=== PATIENT | female | born 1970 | race Caucasian/White ===

== ENCOUNTER 2023-10-24 12:51 | Outpatient (OUT) | payer OTHER, SELFPAY ==
--- NOTE | 2023-10-24 12:53 | US_ITS ---
The [address] [address] Patient Name: BARB RAMOS MRN: [id number] date: 1970 Sex: F Assigned Patient Location: [facility] Current Patient Location: [facility] Accession/Order Number: [id number] Exam Date: 10/24/2023 12:58 Report Date: 10/24/2023 15:02 At the request of: DARRON LATHAM Procedure: US pelvis w/ transvaginal EXAMINATION: US pelvis w/ transvaginal HISTORY: Post-menopausal bleeding N95.0 COMPARISON: No relevant comparison available. FINDINGS: Transabdominal and transvaginal images The uterus is normal in size, contour and echotexture measuring 8.3 x 5.2 x 4.0 cm. No focal myometrial mass. The uterus is anteverted. Endometrium measures 6.2 mm The right ovary is not visualized Left ovary measures 2.3 x 1.4 x 1.6 cm. Normal color Doppler flow US/US pelvis w/ transvaginal IMPRESSION: The endometrium measures 6.2 mm, this is mildly thickened for postmenopausal patient Electronically authenticated by: LEANDER LOPEZ Date: 10/24/2023 15:02
== END 2023-10-24 12:52 | disposition home or self-care (01) ==
LOC: NOMS 12:51
PROVIDERS: PCP Family Medicine; Visit Provider Obstetrics & Gynecology
DX: N95.0 Postmenopausal bleeding (principal)
CPT/HCPCS: 76830; 76856

== ENCOUNTER 2023-11-10 20:49 | Outpatient (REF) | payer OTHER, SELFPAY | END 2023-11-10 20:50 | disposition home or self-care (01) | LOC: LAB 20:49 | PROVIDERS: PCP Family Medicine; Visit Provider Obstetrics & Gynecology | DX: Z01.419 Encounter for gynecological examination (general) (routine) without abnormal findings (principal) | CPT/HCPCS: 87624; 88175 ==

== ENCOUNTER 2023-11-21 09:52 | Outpatient (OUT) | payer OTHER, SELFPAY ==
--- NOTE | 2023-11-21 09:59 | ECG_ITS ---
The [facility] Test Date: 2023-11-21 Pat Name: BARB RAMOS Department: Room: - Gender: Female [employer]: : [id number] Requested By: DARRON LATHAM Order Number: [id number] Reading MD: STEPHENIE MCELROY Measurements Intervals [place] Rate: 77 P: 69 OR: 161 QRS: 32 QRSD: 89 T: 37 QT: 382 QTc: 433 Interpretive Statements SINUS RHYTHM No previous ECG available for comparison Electronically Signed On 11-21-2023 23:08:01 EDT by STEPHENIE MCELROY
--- OUTSIDE RECORDS SUMMARY | 2023-11-21 10:06 | XMS_ITS | CCD ---
Author Organization [facility] Care Team Providers Care Counselor Dormitory Name Role Phone Jyoti Dempsey Primary Care Provider KAYLYN, DR SINGER Primary Care Unavailable PAY, DR DAVALOS Admitting Unavailable PAY, DR DAVALOS Attending Unavailable PAY, DR DAVALOS Consulting Unavailable ALVARADO, INDIO Consulting Unavailable HOUSE, DR SINGER Primary Care Unavailable KARASIK, DR JASMINE Admitting Unavailable KARASIK, DR JASMINE Attending Unavailable KARASIK, DR JASMINE Consulting Unavailable WEST, DR LEANDER Avila Consulting Unavailable Zieber, DR Pinto Consulting Unavailable KARASIK, DR JASMINE Admitting Unavailable KARASIK, DR JASMINE Attending Unavailable HOUSE, DR SINGER Primary Care Unavailable KARASIK, DR JASMINE Consulting Unavailable Jag Gross DO Primary Care Provider [phone] LI KAHN Attending Unavailable JR. MARIA E, YVETTE Jalloh Attending Unavaila WOO Bo Attending Unavailable ANABELLE, WOO Calderon Attending Unavailable ANABELLE, WOO Calderon Attending Unavailable DARRON LATHAM Attending Unavailable ANABELLE, WOO Calderon Attending Unavailable ANABELLE, WOO Calderon Attending Unavailable DARRON LATHAM Attending Unavailable Allergies Allergy Classification Reported Allergen(s) Allergy Type Date of Onset Reaction(s) Facility (1 source) Levamisole Drug Allergy 5 [facility] Repository (4 sources) Phenergan Plain Propensity to adverse reactions to drug 4 Abnormal Behavior [facility] Medications Current Medications Medication Drug Class(es) Dates Sig (Normalized) Sig (Original) ibuprofen 800 mg oral tablet (5 sources) Nonsteroidal Anti-inflammatory Drug Start: 4 End: 4 take 1 tablet by mouth every eight hours as needed for pain ibuprofen (MOTRIN) 800 mg tablet Indications: Bilateral carpal tunnel syndrome TAKE 1 TABLET BY MOUTH EVERY 8 HOURS NEEDED FOR PAIN 90 tablet 0 06/16/2023 Active levothyroxine sodium 0.1 mg oral tablet (4 sources) l-Thyroxine Start: 3 take 1 tablet by mouth once daily levothyroxine (SYNTHROID, LEVOTHROID) 100 MCG tablet Indications: Hypothyroidism, unspecified type TAKE 1 TABLET BY MOUTH EVERY DAY 90 tablet 1 01/14/2023 Active methylPREDNISolone 4 mg oral tablet (4 sources) Corticosteroid Start: 4 take 1 tablet by mouth in the morning methylPREDNISolone (MEDROL, VAHID,) 4 mg tablet Indications: Bilateral carpal tunnel syndrome Take 1 tablet (4 mg total) by mouth in the morning. follow package directions. 21 tablet 0 05/16/2023 Active venlafaxine 75 mg oral tablet (4 sources) Serotonin and Norepinephrine Reuptake Inhibitor Start: 3 take 1 tablet by mouth once daily venlafaxine (EFFEXOR) 75 mg tablet Indications: Major depressive disorder with single episode, in full remission (CMS-HCC) TAKE 1 TABLET BY MOUTH EVERY DAY 90 tablet 1 01/14/2023 Active Problems Active Problems Problem Classification Problem Date Documented Da te Episodic/Chronic Immunizations and screening for infectious disease (3 sources) Exposure to communicable disease; Translations: [Encounter for observation for suspected exposure to other biological agents ruled out] Onset: 02-12-2020 Episodic Mood disorders (4 sources) Depressive disorder; Translations: [Depression] Onset: 12-29-2022 12-29-2022 Chronic Other nervous system disorders (2 sources) Bilateral carpal tunnel syndrome; Translations: [Carpal tunnel syndrome, bilateral upper limbs] 05-16-2023 Chronic Other nutritional; endocrine; and metabolic disorders (1 source) Body mass index 25-29 - overweight; Translations: [Overweight] 05-16-2023 Episodic Other screening for suspected conditions (not mental disorders or infectious disease) (9 sources) Encounter for screening mammogram for malignant neoplasm of breast; Translations: [Encounter for screening for malignant neoplasm of cervix] Onset: 12-16-2021 Episodic Residual codes; unclassified (1 source) Asymptomatic menopausal state; Translations: [ASYMPTOMATIC MENOPAUSAL STATE] Onset: 01-15-2022 Episodic Substance-related disorders (5 sources) Nicotine dependence, cigarettes, uncomplicated; Translations: [Cigarette smoker ] Onset: 09-02-2021 12-29-2022 Chronic Thyroid disorders (4 sources) Hypothyroidism; Translations: [Hypothyroidism, unspecified] Onset: 12-29-2022 12-29-2022 Chronic Past or Other Problems Problem Classification Problem Date Documented Da te Episodic/Chronic E Codes: Natural/environment (1 source) Bitten by cat, initial encounter; Translations: [BITTEN BY CAT INITIAL ENCOUNTER] Onset: 09-02-2021 Episodic Mood disorders (4 sources) Mood disorders Onset: 05-16-2023 05-16-2023 Open wounds of extremities (1 source) Open bite of right hand, initial encounter; Translations: [OPEN BITE RIGHT HAND INITIAL ENC] Onset: 09-02-2021 Episodic Other aftercare (1 source) Other salvage determiner (current) drug therapy; Translations: [OTH RESIDENTIAL CURRENT DRUG THERAPY] Onset: 09-02-2021 Episodic Other connective tissue disease (4 sources) Pain in right hand; Translations: [PAIN IN RIGHT HAND] Onset: 08-30-2021 Episodic Other nutritional; endocrine; and metabolic disorders (4 sources) Overweight; Translations: [Overweight] Onset: 12-29-2022 12-29-2022 Episodic Skin and subcutaneous tissue infections (1 source) Cellulitis of right upper limb; Translations: [CELLULITIS OF RIGHT UPPER LIMB] Onset: 09-02-2021 Episodic Results Test Name Value Interpretation Reference Range Facil ity MG MAMM SCREEN 3D LEVAR CADon 01-08-2022 MG MAMM SCREEN 3D LEVAR CAD Patient: MAGY FARIAS Exam Date: 01/08/2022 : 1970 Gender:F Ordering : DR KENROY STEVENSON . Admission #: [id number] Family : Order #: [id number] CLICK HERE TO VIEW EXAM RADIOLOGY REPORT PROCEDURE: MAMMOGRAM SCREENING 3D BILATERAL CAD COMPARISON: MG MAMM SCREEN 3D LEVAR CAD, 12/16/2020. INDICATIONS: Screening mammography Calculator Name NCI Breast Cancer Risk Assessment Tool 5 Year Breast Cancer Risk 0.70% Lifetime Breast Cancer Risk 6.50% Personal Breast Cancer No Personal Ovarian Cancer No Treatments None Family Cancers None LOCATION: [facility] BREAST COMPOSITION: Extremely dense, which lowers the sensitivity of mammography. FINDINGS: DIAGNOSTIC CATEGORY 2--BENIGN FINDING. NO CHANGE FROM COMPARISON. Scattered benign-appearing nodules are present. Scattered benign-appearing calcifications are present. Scattered benign-appearing lymph nodes are present. RIGHT BREAST: No significant suspicious finding. LEFT BREAST: No significant suspicious finding. RECOMMENDATIONS: ROUTINE MAMMOGRAM AND CLINICAL EVALUATION IN 12 MONTHS. PLEASE NOTE: A NORMAL MAMMOGRAM DOES NOT EXCLUDE THE POSSIBILITY OF BREAST CANCER. A CLINICALLY SUSPICIOUS PALPABLE LUMP SHOULD BE BIOPSIED. Dictated by: Leander Olmedo MD on 01/08/2022 at 10:27 Approved by: Leander Olmedo MD on 01/08/2022 at 10:28 Normal [facility] XR DEXA BONE DENSITYon 01-08 XR DEXA BONE DENSITY EXAMINATION: XR DEXA BONE DENSITY, 01/08/2022 8:59 AM EDT HISTORY: Menopause present COMPARISON: None. TECHNIQUE: Dual-energy X-ray absorptiometry (DEXA) bone density study performed for the axial skeleton. FINDINGS: SPINE ANALYSIS: Average bone mineral density is 1.373 g/cm2. T-score (standard deviation relative to young adult mean): 1.4 . HIP ANALYSIS: Lowest bone mineral density is within the left femoral trochanter, 0.901 g/cm2. T-score (standard deviation relative to young adult mean): 0.4 . IMPRESSION: World [employer] Organization Classification: Normal - Low Fracture Risk Electronically authenticated by: SHAINA WINKLER Date: 2022-01-08 10:20 Normal [facility] PAP ACOG PANEL 2: 30 to 65on 12-22-2021 . . Normal [facility] Comment on above: Result Comment: Perf ormed at: WB Performed By: #### [id number] #### [facility] [address] [place] [address] Dr. Kyleigh Mittal Age Gdln ACOG Testing 30-65 Normal [facility] Comment on above: Performed By: #### [id number] #### [facility] [address] [address] [address] Kyleigh Mittal DIAGNOSIS: Comment Normal [facility] Comment on above: Result Comment: NEGA TIVE FOR INTRAEPITHELIAL LESION OR MALIGNANCY. Performed at: WB Performed By: #### [id number] #### [facility] [address] [address] [address] Kyleigh Mittal HPV Aptima Positive Abnormal Negative [facility] Comment on above: Result Comment: This nucleic acid amplification test detects fourteen high-risk HPV types (16,18,31,33,35,39,45,51,52,56,58,59,66,68) without differentiation. Performed at: =G Performed By: #### [id number] #### [facility] [address] [address] [address] Kyleigh Mittal HPV Genotype 16 Negative Normal Negative [facility] Comment on above: Result Comment: Perf ormed at: =G Performed By: #### [id number] #### [facility] [address] [address] [address] Kyleigh Mittal HPV Genotype 18,45 Negative Normal Negative [facility] Comment on above: Result Comment: Perf ormed at: =G Performed By: #### [id number] #### [facility] [address] [place] [address] Dr. Kyleigh Mittal Methodology: Comment Normal [facility] Comment on above: Result Comment: This liquid based ThinPrep(R) pap test was screened with the use of an image guided system. Performed at: WB Performed By: #### [id number] #### [facility] [address] [place] [address] Dr. Kyleigh Mittal Note: Comment Normal [facility] Comment on above: Result Comment: The Pap smear is a screening test designed to aid in the detection of premalignant and malignant conditions of the uterine cervix. It is not a diagnostic procedure and should not be used as the sole means of detecting cervical cancer. Both false-positive and false-negative reports do occur. . Performed at: WB Performed By: #### [id number] #### [facility] [address] [address] [address] Kyleigh Mittal Performed by: Comment Normal [facility] Comment on above: Result Comment: Sharon Jalloh, Parts Sales Associate (ASCP) Performed at: WB Performed By: #### [id number] #### [facility] [address] [address] [address] Kyleigh Mittal Specimen adequacy: Comment Normal [facility] Comment on above: Result Comment: Sati sfactory for evaluation. Endocervical and/or squamous metaplastic cells (endocervical component) are present. Performed at: WB Performed By: #### [id number] #### [facility] [address] [place] [address] Dr. Kyleigh Mittal CBC AUTO DIFFon 08-31-2021 BASO # 0.1 103/ul Normal 0.0-0.1 [facility] Comment on above: Performed By: #### C BC #### [facility] [address] [place] [address] Dr. Kyleigh Mittal Basophils/100 WBC (Bld) 0.9 % Normal 0.2-2.0 [facility] Comment on above: Performed By: #### C BC #### [facility] [address] [place] [address] Dr. Kyleigh Mittal EO # 0.2 103/ul Normal 0.0-0.7 [facility] Comment on above: Performed By: #### C BC #### [facility] [address] [place] [address] Dr. Kyleigh Mittal Eosinophils/100 WBC (Bld) 2.6 % Normal 0.9-7.0 [facility] Comment on above: Performed By: #### C BC #### [facility] [address] [place] [address] Dr. Kyleigh Mittal Erythrocyte distribution width (RBC) [Ratio] 13.9 % Normal 11.0-15.0 [facility] Comment on above: Performed By: #### C BC #### [facility] [address] [place] [address] Dr. Kyleigh Mittal Hematocrit (Bld) [Volume fraction] 38.1 % Normal 36.0-48.0 [facility] Comment on above: Performed By: #### C BC #### [facility] [address] [place] [address] Dr. Kyleigh Mittal Hemoglobin (Bld) [Mass/Vol] 11.7 g/dL Critically low 12.0-16.0 [facility] Comment on above: Performed By: #### C BC #### [facility] [address] [place] [address] Dr. Kyleigh Mittal IG # 0.02 10e3/ul Normal 0.00-0.03 [facility] Comment on above: Performed By: #### C BC #### [facility] [address] [place] [address] Dr. Kyleigh Mittal IG % 0.3 % Normal 0.0-0.5 [facility] Comment on above: Performed By: #### C BC #### [facility] [address] [place] [address] Dr. Kyleigh Mittal LYMPH # 2.4 103/ul Normal 1.2-3.8 [facility] Comment on above: Performed By: #### C BC #### [facility] [address] [place] [address] Dr. Kyleigh Mittal Lymphocytes/100 WBC (Bld) 29.6 % Normal 20.5-60.0 [facility] Comment on above: Performed By: #### C BC #### [facility] [address] [place] [address] Dr. Kyleigh Mittal MANUAL DIFF REQ NO [facility] Comment on above: Performed By: #### C BC #### [facility] [address] [place] [address] Dr. Kyleigh Mittal MCH (RBC) [Entitic mass] 25.5 pg Critically low 26.7-34.0 [facility] Comment on above: Performed By: #### C BC #### [facility] [address] [place] [address] Dr. Kyleigh Mittal MCHC (RBC) [Mass/Vol] 30.7 g/dL Normal 29.9-35.2 [facility] Comment on above: Performed By: #### C BC #### [facility] [address] [place] [address] Dr. Kyleigh Mitatl MCV (RBC) [Entitic vol] 83.2 fL Normal 81.0-99.0 [facility] Comment on above: Performed By: #### C BC #### [facility] [address] [place] [address] Dr. Kyleigh Mittal MONO # 0.8 103/ul Normal 0.3-0.8 [facility] Comment on above: Performed By: #### C BC #### [facility] [address] [place] [address] Dr. Kyleigh Mittal Monocytes/100 WBC (Bld) 9.7 % Normal 1.7-12.0 [facility] Comment on above: Performed By: #### C BC #### [facility] [address] [place] [address] Dr. Kyleigh Mittal NEUT # 4.5 103/ul Normal 1.4-6.5 [facility] Comment on above: Performed By: #### C BC #### [facility] [address] [place] [address] Dr. Kyleigh Mittal Neutrophils/100 WBC (Bld) 56.9 % Normal 43.0-75.0 [facility] Comment on above: Performed By: #### C BC #### [facility] [address] [place] [address] Dr. Kyleigh iMttal Platelet mean volume (Bld) [Entitic vol] 9.7 fL Normal 9.5-13.5 [facility] Comment on above: Performed By: #### C BC #### [facility] [address] [place] [address] Dr. Kyleigh Mittal PLT 306 103/ul Normal 150-450 [facility] Comment on above: Performed By: #### C BC #### [facility] [address] [place] [address] Dr. Kyleigh Mittal RBC 4.58 106/ul Normal 4.20-5.40 [facility] Comment on above: Performed By: #### C BC #### [facility] [address] [place] [address] Dr. Kyleigh Mittal WBC 8.0 103/ul Normal 4.0-11.0 [facility] Comment on above: Performed By: #### C BC #### [facility] [address] [place] [address] Dr. Kyleigh Mittal CULTURE BLOODon 08-31-2021 Microscopic examination of blood, culture Culture Observations: NO GROWTH AT 5 DAYS. Isolate 1 BC_BA_NA Normal [facility] Comment on above: Performed By: #### B [id number] #### [facility] [address] [address] [address] Kyleigh Mittal Microscopic examination of blood, culture Culture Observations: NO GROWTH AT 5 DAYS. Isolate 1 BC_BA_NA Normal [facility] Comment on above: Performed By: #### B [id number] #### [facility] [address] [id number] Kyleigh Mittal XR HAND RT MIN 3Von 09-01-19 22 XR HAND RT MIN 3V EXAM: XR HAND RT MIN 3V HISTORY: Pain COMPARISON: None. TECHNIQUE: 3 views of the right hand were obtained. FINDINGS: 2 metallic BBs overlie the ulnar aspect of the right hand. No acute fracture or dislocation is seen. There is no soft tissue air. The joint spaces are preserved. No additional radiopaque foreign body is seen. There is soft tissue edema about the right hand. IMPRESSION: 1. No acute osseous abnormality or soft tissue air is seen about the right hand. 2. Soft tissue edema about the right hand which could represent cellulitis. Electronically authenticated by: Cosmo ALVARADO Date: 2021-08-31 00:59 Normal [facility] Vital Signs Date Time Vital Sign Value Performing Clinician Kyra salas 05-16-2023 11:01-0500 Body height 162.6 cm [employer] [facility] 05-16-2023 11:01-0500 Body mass index (BMI) [Ratio] 25.39 kg/m2 [employer] DO [facility] 05-16-2023 11:01-0500 Body temperature 97.5 [degF] [employer] DO [facility] 05-16-2023 11:01-0500 Body weight 67.09 kg [employer] DO [facility] 05-16-2023 11:01-0500 Diastolic blood pressure 70 mm[Hg] [employer]a DO Work Phone: [facility] [employer] [facility] 05-16-2023 11:01-0500 Heart rate 102 /min Jag Gross DO [facility] Phone[facility] 05-16-2023 11:01-0500 SaO2% (BldA) [Mass fraction] 98 % Jag Gross DO Work Phone[facility] 05-16-2023 11:01-0500 Systolic blood pressure 130 mm[Hg] Jag Gross DO Work Phone: [facility] Encounters Encounter Date Encounter Type Care Provider Facility Start: 11-10-2023 End: 11-10-2023 ambulatory DARRON GARRIDOO Not Available Start: 11-09-2023 End: 11-09-2023 ambulatory WOO AHN Not Available Start: 10-28-2023 End: 10-28-2023 ambulatory WOO AHN Not Available Start: 10-13-2023 End: 10-13-2023 ambulatory DARRON GARRIDOO Not Available Start: 10-04-2023 End: 10-04-2023 ambulatory WOO AHN Not Available Start: 09-27-2023 End: 09-27-2023 ambulatory WOO AHN Not Available Start: 09-09-2023 End: 09-09-2023 ambulatory WOO AHN Not Available Start: 09-07-2023 End: 09-07-2023 ambulatory YVETTE NIETOANIC Not Available Start: 08-10-2023 End: 08-10-2023 ambulatory LI KAHN Not Available Start: 06-13-2023 Refill Jag soni DO Work Phone: [facility] Comment on above: Bilateral carpal asha stacie syndrome Start: 05-20-2023 Orders Only Jag soni DO Work Phone: [facility] Start: 05-19-2023 Telephone encounter Li Jalloh MA [facility] Start: 05-16-2023 End: 05-16-2023 Office outpatient visit 15 minutes Jag Gross DO Work Phone: [facility] Comment on above: Bilateral carpal asha stacie syndrome (Primary Dx); Overweight (BMI 25.0-29.9); Encounter for screening mammogram for malignant neoplasm of breast Start: 01-08-2022 End: 01-09-[address] LUCRECIA PATIÑO Facility:[facility] Start: 12-16-2021 End: 12-16-[address] KENROY STEVENSON Facility:[facility] Start: 08-30-2021 End: 08-31-[address] LUCRECIA PATIÑO Facility:[facility] Start: 02-12-2020 End: 02-12-2020 Telemedicine consultation with patient Jyoti Dempsey Work Phone: [facility] Work Phone: Procedures Date Procedure Procedure Detail Performing Clinician Start: 05-16-2023 Adult depression scr eening assessment Jag Gross [employer] Work Phone: Start: 01-08-2022 Mammography Jag gill DO Work Phone: Plan of Treatment Date Care Activity Detail Author Start: 01-08-2026 Screening for malign ant neoplasm of colon Colon Cancer Screening 3 Year [facility] Start: 06-28-2024 Tobacco Counseling Tobacco Counselin g [facility] Start: 05-16-2024 Adult BMI Screening Adult BMI Screen ing [facility] Start: 05-16-2024 Depression Screening Depression Scre ening [facility] Start: 05-16-2024 Tobacco Screening Tobacco Screening [facility] Start: 04-04-2024 Administration of varicella zoster vaccine Zoster (Shingles) Vaccine (1 of 2) [facility] Comment on above: Postponed from 12/09 (Patient Refused) Start: 07-03-2023 Influenza vaccination Influenza Vacc ine [facility] Comment on above: Postponed from 12/03 (Patient Refused) Start: 05-16-2023 End: 05-16-2024 DBT Breast - bilateral screening Mammography screening bilateral with CAD Imaging Routine Encounter for screening mammogram for malignant neoplasm of breast Expected: 05/16/2023, Expires: 05/16/2024 [facility] Work Phone: Comment on above: Expected: 05/16/2023 , Expires: 05/16/2024 Start: 01-08-2023 Screening for malign ant neoplasm of breast [facility] Start: 02-19-2020 SARS-CoV-2, [facility] Work Phone: Start: 02-12-2020 COVID Drive up Testing [facility] Work Phone: Start: 12-09-1992 Screening for malign ant neoplasm of cervix [facility] Start: 12-09-1990 DTaP,Tdap and Td Vac cines (1 - Tdap) DTaP,Tdap and Td Vaccines (1 - Tdap) [facility] Start: 12-09-1989 Adult BMI Follow Up Plan Adult BMI Follow Up Plan [facility] [employer] Payers Date Payer Category Payer Unknown [facility] [facility] [id number] 2022-Present [phone] [address] [address] [place] [address] [id number] 1970 Unknown [id number] 1970 Unknown [id number] 1970 Unknown [id number] [id number] 1971 Unknown [id number] [id number] 1971 Unknown [id number] [id number] 1971 Unknown [id number] [id number] 1971 Unknown [id number] [id number] 1971 Unknown [id number] [id number] 1971 Unknown [id number] 2.16.840.1.136785.3.579.2.9 1971 Unknown [id number] [id number] 1971 Unknown [id number] [id number] 1970 Unknown [id number] [id number] 1959 Unknown [id number] 1958 Unknown [id number] Self-pay [id number] .5.4 Social History Date Type Detail Facility Tobacco smoking status Unknown if ever [facility] Work Phone: Start: 04-04-2014 [facility] Start: 04-04-2014 History of tobacco use Cigarette Smo ker [facility] Start: 12-29-2022 End: 05-16-2023 Cigarettes smoked current (pack per day) - Reported 0.5 [facility] Start: 12-29-2022 Tobacco use and exposure Smokeless tobacco non-user [facility] Start: 05-16-2023 Alcohol intake Current drinke r of alcohol (finding) [facility] Start: 12-29-2022 End: 05-16-2023 [facility] [employer] [facility] Has the [employer], or [employer] threatened to shut off services in your home in past 12Mo No [facility] Are you now , , , , never or living with a partner? [facility] How often to you hav e a drink containing alcohol? 2-4 times a month [facility] How many standard drinks containing alcohol do you have on a typical day? 3 or 4 [facility] How often do you hav e 6 or more drinks on 1 occasion? Never [facility] How hard is it for y ou to pay for the very basics like food, housing, medical care, and heating Not hard at all [facility] Do you feel stress - tense, restless, nervous, or anxious, or unable to sleep at night because your mind is troubled all the time - these days [OSQ] To some extent [facility] Start: 12-29-2022 Alcohol Comment social [facility] Start: 1970 Sex Assigned At Not on file [facility] Clinical Notes 05-16-2023 to 05-19-2023 Telephone Encounter - Li Perea CMA - 05/19/2023 3:49 PM ESTTelephone Encounter - Jag Gross DO - 05/19/2023 3:49 PM ESTTelephone Encounter - Li Perea CMA - 05/19/2023 3:49 PM EST Note Date & Type Note Facility 05-19-2023 Miscellaneous Notes Patient called and stated that she still has numbness and tingling in her hands and wanted to know can you take her off till Tuesday? Her employer is working 12 hours so she could not due this with numb and tingling hands. ok Patient states it starts tomorrow Okay. I printed out a note for her Patient picked up note documented in this encounter [facility] 05-19-2023 Telephone encounter Note Patient called and stated that she still has numbness and tingling in her hands and wanted to know can you take her off till Tuesday? Her employer is working 12 hours so she could not due this with numb and tingling hands. [facility] [employer] [facility] 05-19-2023 Telephone encounter Note Patient states it starts tomorrow [facility] 05-19-2023 Telephone encounter Note Okay. I printed out a note for her [facility] 05-19-2023 Telephone encounter Note Patient picked up note [facility] 05-16-2023 History of Present illness Narrative Subjective Patient ID: Magy Farias is a 52 y.o. female. ID presents today for a new problem. She is right handed. 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 She has been there about 4 years now. This problem started 2 weeks ago. It comes and goes but has chronic achiness and swelling. There is no weakness. She wakes up at night and her hands are numb and she has to shake them to get feeling back in them. Her mother gave her wrist braces and Voltaren gel which seems to have helped a bit. Numbness Associated symptoms include numbness. Pertinent negatives include no headaches, neck pain or weakness. The following portions of the patient's history were reviewed and updated as appropriate: allergies, current medications, past family history, past medical history, past social history, past surgical history, problem list, and medication reconciliation was completed including current medication and post discharge medication. Review of Systems Constitutional: Negative. Musculoskeletal: Negative for gait problem and neck pain. Neurological: Positive for numbness. Negative for dizziness, tremors, seizures, syncope, facial asymmetry, speech difficulty, weakness, light-headedness and headaches. Objective Physical Exam Constitutional: Appearance: She is overweight. Eyes: General: No scleral icterus. Extraocular Movements: Extraocular movements intact. Conjunctiva/sclera: Conjunctivae normal. Cardiovascular: Pulses: Normal pulses. Pulmonary: Effort: Pulmonary effort is normal. Skin: General: Skin is warm and dry. Neurological: General: No focal deficit present. Mental Status: She is alert and oriented to person, place, and time. Cranial Nerves: Cranial nerves 2-12 are intact. Sensory: Sensation is intact. Motor: Motor function is intact. Gait: Gait is intact. Deep Tendon Reflexes: Reflex Scores: Tricep reflexes are 2+ on the right side and 2+ on the left side. Bicep reflexes are 2+ on the right side and 2+ on the left side. Brachioradialis reflexes are 2+ on the right side and 2+ on the left side. Comments: +Tinel's test on left + Phalen's test B/L Psychiatric: Attention and Perception: Attention normal. Mood and Affect: Mood and affect normal. Speech: Speech normal. Behavior: Behavior normal. Behavior is cooperative. Thought Content: Thought content normal. Cognition and Memory: Cognition normal. Judgment: Judgment normal. Assessment/Plan Magy was seen today for numbness. Diagnoses and all orders for this visit: Bilateral carpal tunnel syndrome - methylPREDNISolone (MEDROL, VAHID,) 4 mg tablet; Take 1 tablet (4 mg total) by mouth in the morning. follow package directions. - ibuprofen (MOTRIN) 800 mg tablet; Take 1 tablet (800 mg total) by mouth every 8 (eight) hours as needed for pain. Clinically appears to be carpal tunnel syndrome. We will treat with a Medrol Dosepak followed by ibuprofen 800 every 8 hours as needed for pain. Try to reduce repetitive hand movements. She has the wrist cock-up splints at home and was encouraged to continue. If she can wear them at her job then she should or at least wear them at night then. Discussed cortisone injections and surgery. Likely related to repetitive hand use at work but also can be due to hypothyroidism and possibly smoking. Her last thyroid check was normal. Can recheck it early if she continues to have problems. Overweight (BMI 25.0-29.9) She is overweight. She would benefit from weight loss. Encounter for screening mammogram for malignant neoplasm of breast - Mammography screening bilateral with CAD; Future We discussed her mammogram. Recommended to have it done. She agreed. She would pursue further evaluation and treatment if it is abnormal. Order sent and she will call and set up her own appointment. documented in this encounter [facility] Diagnosis Bilateral carpal tunnel syndrome- Primary Carpal tunnel syndrome Overweight (BMI 25.0-29.9) Overweight Encounter for screening mammogram for malignant neoplasm of breast documented in this encounter [facility] [employer] [facility] Diagnosis Bilateral carpal tunnel syndrome Carpal tunnel syndrome documented in this encounter [facility] [employer] [facility]ructionsNot on filedocumented in this encounter [facility] [employer] ProfessionalsInstructionsNot on filedocumented in this encounter [facility] [employer] Reason for Referral No Reason for Referral Recorded Assessments Findings Encounter Date Exposure to a viral disease Telemedicine Establisted Patient with Jyoti Dempsey [employer] 02/12/2020 Exposure to biological agent suspected Telemedicine Establisted Patient with Jyoti Dempsey [employer] 02/12/2020 Instructions Instructions not supported for this document type No Instructions Recorded History of Present Illness History of Present Illness not supported for this document type No History of Present Illness Recorded Family History Includes: Family History in patient's chart No Family History RecordedNo Family History Records FoundNo Family History Records Found Review of System Review of Systems not supported for this document type No Review of Systems Recorded Physical Exam Physical Exam not supported for this document type No Physical Exam Recorded Advance Directives Includes: Current Advance Directives No Advance Directives RecordedNo Advanced Directives Records FoundNo Advanced Directives Records Found Summary Purpose Additional Source Comments Medical History (unrecognize d section and content) Includes: Medical History in patient's chartNo Medical History Recorded Evaluations & Outcomes (unre cognized section and content) Includes: Evaluations & Outcomes for active GoalsNo Outcomes Recorded INFORMATION SOURCE (unrecogn ized section and content) DATE CREATED AUTHOR 01/26/2022 [facility] DATE CREATED AUTHOR AUTHOR'S ORGANIZ ATION 11/12/2023 [facility] Reason for Visit (unrecogniz ed section and content) Reason Comments Numbness In the hand painful Reason Comments Med Refill Care Teams (unrecognized sec tion and content) Counselor Dormitory Relationship Specialty Start Date End Date GinnyYongJag KristiDO [address] [place] [address] PCP - General Family Medicine 12/29/22 Counselor Dormitory Relationship Specialty Start Date End Date KassidyjairoYongJag KristiDO [address], [place] [address] PCP - General Family Medicine 12/29/22 Counselor Dormitory Relationship Specialty Start Date End Date Kassidyjairo Jag KristiDO [address], [place] [address] PCP - General Family Medicine 12/29/22 FOR RECORDS PERTAINING TO PATIENTS WHO ARE OR HAVE BEEN ENROLLED IN A CHEMICAL DEPENDENCY/SUBSTANCEABUSE PROGRAM, SOME INFORMATION MAY BE OMITTED. This clinical summary was aggregated from multiple sources. Caution should be exercised in using it in the provision of clinical care. This summary normalizes information from multiple sources, and as a consequence, information in this document may materially change the coding, format and clinical context of patient data. In addition, data may be omitted in some cases. CLINICAL DECISIONS SHOULD BE BASED ON THE PRIMARY CLINICAL RECORDS. [employer] [facility]. provides no warranty or guarantee of the accuracy or completeness of information in this document.
--- NOTE | 2023-11-21 10:28 | XR_ITS ---
The [address] [address] Patient Name: BARB RAMOS MRN: [id number] date: 1970 Sex: F Assigned Patient Location: [facility] Current Patient Location: Accession/Order Number: [id number] Exam Date: 11/21/2023 10:30 Report Date: 11/22/2023 07:11 At the request of: DARRON LATHAM Procedure: XR chest 2V PROCEDURE: XR chest 2V DATE: 11/21/2023 9:30 AM CDT COMPARISONS: None. CLINICAL INDICATION: 52 years Female Preop exam FINDINGS: The cardiomediastinal silhouette and pulmonary vasculature are within normal limits. The lungs are clear. There is no evidence of pleural effusion or pneumothorax. XR/XR chest 2V IMPRESSION: Chest radiograph is within normal limits. Electronically authenticated by: SHAHNAZ MEDINA Date: 11/22/2023 07:11
== END 2023-11-21 09:53 | disposition home or self-care (01) ==
PROVIDERS: PCP Family Medicine; Visit Provider Obstetrics & Gynecology
DX: Z01.810 Encounter for preprocedural cardiovascular examination (principal); R93.89 Abnormal findings on diagnostic imaging of other specified body structures
CPT/HCPCS: 71046; 93005

== ENCOUNTER 2023-12-02 07:46 | Day surgery (SDC) | payer OTHER, SELFPAY ==
[2023-11-21 10:23] VITALS: BP 133/87; PULSE 89; TEMP 36.3; O2SAT 98; BMI 25.9
[2023-12-02] VITALS (11 sets, daily range): BP systolic 123–147; BP diastolic 72–95; PULSE 66–99; TEMP 35.9–36.4; O2SAT 95–99; BMI 25.2
--- OUTSIDE RECORDS SUMMARY | 2023-12-02 07:50 | XMS_ITS | CCD ---
Author Organization [facility] Care Team Providers Care General Internal Medicine Physician Name Role Phone Jyoti Dempsey Primary Care [...] Unavailable Jag Gross DO Primary Care Provider [phone] LI KAHN Attending Unavailable JR. MARIA E, YVETTE Jalloh Attending Unavaila WOO Bo Attending Unavailable ANABELLE, WOO Calderon Attending Unavailable ANABELLE, WOO Calderon Attending Unavailable DARRON LATHAM Attending Unavailable WOO AHN Attending Unavailable ANABELLE, WOO Calderon Attending Unavailable DARRON LATHAM Attending Unavailable WOO AHN Attending Unavailable Allergies Allergy Classification Reported Allergen(s) Allergy Type Date of Onset Reaction(s) Facility (1 source) Levamisole Drug Allergy 5 [facility] Repository (4 sources) Phenergan Plain Propensity [...] 09-02-2021 Episodic Other aftercare (1 source) 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 Admission #: [id number] Family : Order #: [id number] CLICK HERE TO VIEW EXAM RADIOLOGY REPORT PROCEDURE: MAMMOGRAM SCREENING 3D BILATERAL CAD COMPARISON: MG MAMM SCREEN 3D LEVAR CAD, 12/16/2020. INDICATIONS: Screening mammography Calculator Name NCI Breast Cancer Risk Assessment Tool 5 Year Breast Cancer Risk 0.70% Lifetime Breast Cancer Risk 6.50% Personal Breast Cancer No Personal Ovarian Cancer No Treatments None Family Cancers None LOCATION: [facility] BREAST COMPOSITION: Extremely dense, which lowers [...] Olmedo MD on 01/08/2022 at 10:28 Normal [facility] XR DEXA BONE DENSITYon 01-08 XR [...] by: SHAINA WINKLER Date: 2022-01-08 10:20 Normal [facility] PAP ACOG PANEL 2: 30 to 65on 12-22-2021 . . Normal [facility] Comment on above: Result Comment: Perf ormed at: WB Performed By: #### [id number] #### [facility] [address] [address] [address] Kyleigh Mittal Age Gdln ACOG Testing 30-65 Normal [facility] Comment on above: Performed By: #### [id number] #### [facility] [address] [place], [place] [address] Dr. Kyleigh Mittal DIAGNOSIS: Comment Normal [facility] Comment on above: Result Comment: NEGA TIVE FOR INTRAEPITHELIAL LESION OR MALIGNANCY. Performed at: WB Performed By: #### [id number] #### [facility] [address] [address] [address] Kyleigh Mittal HPV Aptima Positive Abnormal Negative [facility] Comment on above: Result Comment: This nucleic acid amplification test detects fourteen high-risk HPV types (16,18,31,33,35,39,45,51,52,56,58,59,66,68) without differentiation. Performed at: =G Performed By: #### [id number] #### [facility] [address] [address] [address] Kyleigh Mittal HPV Genotype 16 Negative Normal Negative [facility] Comment on above: Result Comment: Perf ormed at: =G Performed By: #### [id number] #### [facility] [address] [address] [address] Kyleigh Mittal HPV Genotype 18,45 Negative Normal Negative [facility] Comment on above: Result Comment: Perf ormed at: =G Performed By: #### [id number] #### [facility] [address] [place] [address] Dr. Kyleigh Mittal Methodology: Comment Normal [facility] Comment on above: Result Comment: This liquid based ThinPrep(R) pap test was screened with the use of an image guided system. Performed at: WB Performed By: #### [id number] #### [facility] [address] [place] [address] Dr. Kyleigh Mittal Note: Comment Normal [facility] Comment on above: Result Comment: The Pap smear is a screening test designed to aid in the detection of premalignant and malignant conditions of the uterine cervix. It is not a diagnostic procedure and should not be used as the sole means of detecting cervical cancer. Both false-positive and false-negative reports do occur. . Performed at: WB Performed By: #### [id number] #### [facility] [address] [place] [address] Dr. Kyleigh Mittal Performed by: Comment Normal [facility] Comment on above: Result Comment: Sharon Jalloh, Welding Machine Operator Submerged Arc (ASCP) Performed at: WB Performed By: #### [id number] #### [facility] [address] [place] [address] Dr. Kyleigh Mittal Specimen adequacy: Comment Normal [facility] Comment on above: Result Comment: Sati sfactory for evaluation. Endocervical and/or squamous metaplastic cells (endocervical component) are present. Performed at: WB Performed By: #### [id number] #### [facility] [address] [place] [address] Dr. Kyleigh Mittal CBC AUTO DIFFon 08-31-2021 BASO # 0.1 103/ul Normal 0.0-0.1 [facility] Comment on above: Performed By: #### C BC #### [facility] [address] [place] [address] Dr. Kyleigh Mittal Basophils/100 WBC (Bld) 0.9 % Normal 0.2-2.0 [facility] Comment on above: Performed By: #### C BC #### [facility] [address] [place] [address] Dr. Kyleigh Mittal EO # 0.2 103/ul Normal 0.0-0.7 [facility] Comment on above: Performed By: #### C BC #### [facility] [address] [place] [address] Dr. Kyleigh Mittal Eosinophils/100 WBC (Bld) 2.6 % Normal 0.9-7.0 [facility] Comment on above: Performed By: #### C BC #### [facility] [address] [place] [address] Dr. Kyleigh Mittal Erythrocyte distribution width (RBC) [Ratio] 13.9 % Normal 11.0-15.0 [facility] Comment on above: Performed By: #### C BC #### [facility] [address] [place] [address] Dr. Kyleigh Mittal Hematocrit (Bld) [Volume fraction] 38.1 % Normal 36.0-48.0 [facility] Comment on above: Performed By: #### C BC #### [facility] [address] [place] [address] Dr. Kyleigh Mittal Hemoglobin (Bld) [Mass/Vol] 11.7 g/dL Critically low 12.0-16.0 [facility] Comment on above: Performed By: #### C BC #### [facility] [address] [place] [address] Dr. Kyleigh Mittal IG # 0.02 10e3/ul Normal 0.00-0.03 [facility] Comment on above: Performed By: #### C BC #### [facility] [address] [place] [address] Dr. Kyleigh Mittal IG % 0.3 % Normal 0.0-0.5 [facility] Comment on above: Performed By: #### C BC #### [facility] [address] [place] [address] Dr. Kyleigh Mittal LYMPH # 2.4 103/ul Normal 1.2-3.8 [facility] Comment on above: Performed By: #### C BC #### [facility] [address] [place] [address] Dr. Kyleigh Mittal Lymphocytes/100 WBC (Bld) 29.6 % Normal 20.5-60.0 [facility] Comment on above: Performed By: #### C BC #### [facility] [address] [place] [address] Dr. Kyleigh Mittal MANUAL DIFF REQ NO Normal [facility] Comment on above: Performed By: #### C BC #### [facility] [address] [place] [address] Dr. Kyleigh Mittal MCH (RBC) [Entitic mass] 25.5 pg Critically low 26.7-34.0 [facility] Comment on above: Performed By: #### C BC #### [facility] [address] [place] [address] Dr. Kyleigh Mittal MCHC (RBC) [Mass/Vol] 30.7 g/dL Normal 29.9-35.2 [facility] Comment on above: Performed By: #### C BC #### [facility] [address] [place] [address] Dr. Kyleigh Mittal MCV (RBC) [Entitic vol] 83.2 fL Normal 81.0-99.0 [facility] Comment on above: Performed By: #### C BC #### [facility] [address] [place] [address] Dr. Kyleigh Mittal MONO # 0.8 103/ul Normal 0.3-0.8 [facility] Comment on above: Performed By: #### C BC #### [facility] [address] [place] [address] Dr. Kyleigh Mittal Monocytes/100 WBC (Bld) 9.7 % Normal 1.7-12.0 [facility] Comment on above: Performed By: #### C BC #### [facility] [address] [place] [address] Dr. Kyleigh Mittal NEUT # 4.5 103/ul Normal 1.4-6.5 [facility] Comment on above: Performed By: #### C BC #### [facility] [address] [place] [address] Dr. Kyleigh Mittal Neutrophils/100 WBC (Bld) 56.9 % Normal 43.0-75.0 [facility] Comment on above: Performed By: #### C BC #### [facility] [address] [place] [address] Dr. Kyleigh Mittal Platelet mean volume (Bld) [Entitic vol] 9.7 fL Normal 9.5-13.5 [facility] Comment on above: Performed By: #### C BC #### [facility] [address] [place] [address] Dr. Kyleigh Mittal PLT 306 103/ul Normal 150-450 [facility] Comment on above: Performed By: #### C BC #### [facility] [address] [place] [address] Dr. Kyleigh Mittal RBC 4.58 106/ul Normal 4.20-5.40 [facility] Comment on above: Performed By: #### C BC #### [facility] [address] [place] [address] Dr. Kyleigh Mittal WBC 8.0 103/ul Normal 4.0-11.0 [facility] Comment on above: Performed By: #### C BC #### [facility] [address] [place] [address] Dr. Kyleigh Mittal CULTURE BLOODon 08-31-2021 Microscopic examination of blood, culture Culture Observations: NO GROWTH AT 5 DAYS. Isolate 1 BC_BA_NA Normal [facility] Comment on above: Performed By: #### B [id number] #### [facility] [address] [place] [address] Dr. Kyleigh Mittal Microscopic examination of blood, culture Culture Observations: NO GROWTH AT 5 DAYS. Isolate 1 BC_BA_NA Normal [facility] Comment on above: Performed By: #### B LDCX1 #### [facility] [address] [id number] [address] Kyleigh Mittal XR HAND RT MIN [...] Cosmo ALVARADO Date: 2021-08-31 00:59 Normal [facility] Vital Signs Date Time Vital Sign Value Performing Clinician Kyra salas 05-16-2023 11:01-0500 Body height 162.6 cm Kimengi Work Phone: [employer] 05-16-2023 11:01-0500 Body mass index (BMI) [Ratio] 25.39 kg/m2 FootballScout DO Work Phone: [employer] 05-16-2023 11:01050 Body temperature 97.5 [degF] FootballScout DO Work Phone: [facility] 05-16-2023 11:01-0500 Body weight 67.09 kg FootballScout DO Work Phone: [facility] 05-16-2023 11:01-0500 Diastolic blood pressure 70 mm[Hg] Kimengi Work Phone: [facility] 05-16-2023 11:01-0500 Heart rate 102 /min Jag Gross DO Work Phone: [facility] 05-16-2023 11:01-0500 SaO2% (BldA) [Mass fraction] 98 % Jag Gross DO Work Phone: [facility] 05-16-2023 11:01-0500 Systolic blood pressure 130 mm[Hg] Jag Gross DO Work Phone: [facility] Encounters Encounter Date Encounter Type Care Provider Facility Start: 11-21-2023 End: 11-21-2023 ambulatory WOO AHN Not Available Start: 11-10-2023 End: 11-10-2023 ambulatory DARRON GARRIDOO Not Available Start: 11-09-2023 End: 11-09-2023 ambulatory WOO AHN Not Available Start: 10-28-2023 End: 10-28-2023 ambulatory WOO AHN Not Available Start: 10-13-2023 End: 10-13-2023 ambulatory DARRON YEISON Not Available Start: 10-04-2023 End: 10-04-2023 ambulatory WOO AHN Not Available Start: 09-27-2023 End: 09-27-2023 ambulatory WOO AHN Not Available Start: 09-09-2023 End: 09-09-2023 ambulatory WOO AHN Not Available Start: 09-07-2023 End: 09-07-2023 ambulatory YVETTE NIETO Not Available Start: 08-10-2023 End: 08-10-2023 ambulatory [...] 15 minutes Jag Gross DO Work Phone: [facility] Comment [...] consultation with patient Jyoti Dempsey Work Phone: [facility] Work Phone: Procedures Date Procedure Procedure Detail Performing Clinician Start: 05-16-2023 Adult depression scr eening assessment Jag Gross DO Work Phone: Start: 01-08-2022 Mammography Jag gill DO Work Phone: Plan of Treatment Date Care Activity Detail Author Start: 01-08-2026 Screening for malign ant neoplasm of colon Colon Cancer Screening 3 Year Cologuard [facility] Start: 06-28-2024 Tobacco Counseling Tobacco Counselin g [facility] Start: 05-16-2024 Adult BMI Screening Adult BMI Screen ing [facility] Start: 05-16-2024 Depression Screening Depression Scre ening [facility] Start: 05-16-2024 Tobacco Screening Tobacco Screening [facility] Start: 04-04-2024 Administration of varicella zoster vaccine Zoster (Shingles) Vaccine (1 of 2) [facility] Comment on above: Postponed from 12/09 (Patient Refused) Start: 07-03-2023 Influenza vaccination Influenza Vacc ine [facility] Comment on above: Postponed from 12/03 (Patient Refused) Start: 05-16-2023 End: 05-16-2024 DBT Breast - bilateral screening Mammography screening bilateral with CAD Imaging Routine Encounter for screening mammogram for malignant neoplasm of breast Expected: 05/16/2023, Expires: 05/16/2024 [employer] Work Phone: Comment on above: Expected: 05/16/2023 , Expires: 05/16/2024 Start: 01-08-2023 Screening for malign ant neoplasm of breast Mammogram [facility] Start: 02-19-2020 SARS-CoV-2, ANALIA [facility] Work Phone: Start: 02-12-[address] Drive up Testing [facility] Work Phone: Start: 12-09-1992 Screening for malign ant neoplasm of cervix Pap Smear [facility] Start: 12-09-1990 DTaP,Tdap and Td Vac cines (1 - Tdap) DTaP,Tdap and Td Vaccines (1 - Tdap) [facility] Start: 12-09-1989 Adult BMI Follow Up Plan Adult BMI Follow Up Plan [facility] Payers Date Payer Category Payer Unknown [employer] [facility] [id number] 2022-Present [phone] [address] [address] [place] [address] [id number] 1971 Unknown [id number] [id number] 1971 Unknown [id number] [id number] 1971 Unknown [id number] [id number] 1971 Unknown [id number] 2.16.840.1.378096.3.579.2.1259 1971 Unknown [id number] 2.16.840.1.184492.3.579.2.1259 1971 Unknown [id number] 2.16.840.1.969759.3.579.2.9 1971 Unknown [id number] 2.16.840.1.397568.3.579.2.1258 1971 Unknown [id number] 2.16.840.1.162679.3.579.2.1258 1971 Unknown [id number] 2.16.840.1.873950.3.579.2.1258 1971 Unknown [id number] 2.16.840.1.456668.3.579.2.1258 1971 Unknown [id number] 2.16.840.1.646418.3.579.2.1258 1971 Unknown [id number] 2.16.840.1.504962.3.579.2.1258 1971 Unknown [id number] 2.16.840.1.164321.3.579.2.9 1959 Unknown [id number] 1959 Unknown [id number] Self-pay [id number] .5.4 Social History Date Type Detail Facility Tobacco smoking status Unknown if ever sm oked [facility] Work Phone: Start: 04-04-2014 [facility] Start: 04-04-2014 History of tobacco use Cigarette Smo ker [facility] Start: 12-29-2022 End: 05-16-2023 Cigarettes smoked current (pack per day) - Reported 0.5 [facility] Start: 12-29-2022 Tobacco use and exposure Smokeless tobacco non-user [facility] Start: 05-16-2023 Alcohol intake Current drinke r of alcohol (finding) [facility] Start: 12-29-2022 End: 05-16-2023 [facility] Utilities [facility] Has the Memol[employer], or [employer] threatened to shut off services in your home in past 12Mo No [facility] Are you now , , , , never or living with a partner? [facility] How often to you hav e a drink containing alcohol? 2-4 times a month [facility] How many standard drinks containing alcohol do you have on a typical day? 3 or 4 [facility] How often do you hav e 6 or more drinks on 1 occasion? Never [facility] How hard is it for y ou to pay for the very basics like food, housing, medical care, and heating Not hard at all [facility] Do you feel stress - tense, restless, nervous, or anxious, or unable to sleep at night because your mind is troubled all the time - these days [OSQ] To some extent [facility] Start: 12-29-2022 Alcohol Comment social [facility] Start: 1970 Sex Assigned At Not on file P [facility] Clinical Notes 05-16-2023 to 05-19-2023 Telephone Encounter [...] up note documented in this encounter [facility] 05-19-2023 Telephone encounter Note Patient called and stated that she still has numbness and tingling in her hands and wanted to know can you take her off till Tuesday? Her employer is working 12 hours so she could not due this with numb and tingling hands. [facility] 05-19-2023 Telephone encounter Note ok [facility] 05-19-2023 Telephone encounter Note Patient states it starts tomorrow [facility] 05-19-2023 Telephone encounter Note Okay. I printed out a note for her [facility] 05-19-2023 Telephone encounter Note Patient picked up note [facility] 05-16-2023 History of Present illness Narrative [...] her own appointment. documented in this encounter [facility] Evaluation note Diagnosis Bilateral carpal tunnel syndrome- Primary Carpal tunnel syndrome Overweight (BMI 25.0-29.9) Overweight Encounter for screening mammogram for malignant neoplasm of breast [facility] Diagnosis Bilateral carpal tunnel syndrome Carpal tunnel syndrome documented [facility] this encounter [facility]ructions[facility] on filedocumented in this encounter [facility] on filedocumented in this encounter [facility] Reason for Referral No Reason for Referral Recorded Assessments Findings Encounter Date Exposure to a viral disease Telemedicine Establisted Patient with Jyoti Dempsey [facility] 02/12/2020 Exposure to biological agent suspected Telemedicine Establisted Patient with Jyoti Dempsey [facility] 02/12/2020 Instructions Instructions not supported for this [...] pital DATE CREATED AUTHOR AUTHOR'S ORGANIZ ATION 11/22/2023 [facility] Reason for Visit (unrecogniz ed section and content) Reason Comments Numbness In the hand painful Reason Comments Med Refill Care Teams (unrecognized sec tion and content) General Internal Medicine Physician Relationship Specialty Start Date End Date Jag Gross DO [address] [place] [address] PCP - General Family Medicine 12/29/22 General Internal Medicine Physician Relationship Specialty Start Date End Date Jag Gross DO [address], [place] [address] PCP - General Family Medicine 12/29/22 General Internal Medicine Physician Relationship Specialty Start Date End Date Jag Gross DO [address], [place] [address] PCP - General Family Medicine 12/29/22 FOR [...] BE BASED ON THE PRIMARY CLINICAL RECORDS. [employer] [facility]. provides no warranty or guarantee of the accuracy or completeness of information in this document.
[2023-12-02 07:54] LABS: Basophils Absolute Auto 0.1 10^3/uL (0.0-0.1); Basophils Percent Auto 1.7 % (0.2-2.0); Eosinophils Absolute Auto 0.1 10^3/uL (0.0-0.7); Eosinophils Percent Auto 2.2 % (0.9-7.0); Hematocrit 35.4 % (36.0-48.0); Hemoglobin 11.1 g/dL (12.0-16.0); Immature Granulocytes Abs Auto 0.01 10^3/uL (0.00-0.03); Immature Granulocytes Pct Auto 0.2 % (0.0-0.5); Lymphocytes Percent Auto 36.8 % (20.5-60.0); Mean Corpuscular HGB Conc 31.4 g/dL (29.9-35.2); Mean Corpuscular Hemoglobin 24.8 pg (26.7-34.0); Mean Platelet Volume 9.2 fL (9.5-13.5); Monocytes Absolute Auto 0.4 10^3/uL (0.3-0.8); Monocytes Percent Auto 6.9 % (1.7-12.0); Neutrophils Absolute Auto 2.8 10^3/uL (1.4-6.5); Neutrophils Percent Auto 52.2 % (43.0-75.0); Platelet Count 328 10^3/uL (150-450); Red Blood Count 4.48 10^6/uL (4.20-5.40); Red Cell Distribution Width 13.8 % (11.0-15.0); White Blood Count 5.4 10^3/uL (4.0-11.0)
[2023-12-02 08:17] LABS: HCG Quantitative 4 mIU/mL
[2023-12-02] MEDS: LACTATED RINGER'S SOLUTION 1,000 ML 50 ML IV (08:19)
--- NOTE | 2023-12-02 09:40 | PM.ONB ---
Brief Operative Note Date of procedure: 12/02/23 Pre-op diagnosis general: menorrhagia, thickened endometrium Post-op diagnosis: same as pre-op Procedure: NAME OF PROCEDURE: [ D&c hysteroscopy with myosure] PROCEDURE: The patient was taken back to the Operating Room where she was prepped and draped in normal sterile fashion after being placed under general anesthesia without difficulty. She was also placed in the dorsal lithotomy position. A weighted speculum was placed in the patient?s vagina. The anterior lip of the cervix was identified and grasped with a single tooth tenaculum. The patient?s uterus was then sounded roughly to [? 8] cm. The patient was then gently dilated using Hegar dilators. The hysteroscope was passed through the patient?s cervix into the uterus. Both ostia were identified. fluffy appearing endometrium. No gross evidence of malignancy, no gross evidence of polyps or fibroids. The myosure apparatus was placed through the scope, The myosure was engaged and endometrial curretting were removed along with endometrial polyp, The hysteroscope was then removed from the uterus. The endometrial curettings were sent out to pathology. The single tooth tenaculum was then removed from the patient's anterior lip of the cervix where excellent hemostasis was noted. All instruments were removed from the patient?s vagina. The patient tolerated the procedure well. Sponge, lap and needle counts were correct times two. The patient was taken to the Recovery Room in stable condition.Room in stable condition. Anesthesia: ABBY Surgeon: Cliff Hitchcock Estimated blood loss (mL): 5 Pathology: other (endometrial currettings) Condition: stable Disposition: PACU Urinary Catheter Management Urinary Catheter Management Urethral: Cath placed during this visit: no
== END 2023-12-02 11:08 | disposition home or self-care (01) ==
PROVIDERS: PCP Family Medicine; Visit Provider Obstetrics & Gynecology
PROC: (CPT 00952; principal; 2023-12-02 08:15)
DX: R93.89 Abnormal findings on diagnostic imaging of other specified body structures (principal); N92.0 Excessive and frequent menstruation with regular cycle; Z90.49 Acquired absence of other specified parts of digestive tract; Z98.51 Tubal ligation status; F17.290 Nicotine dependence, other tobacco product, uncomplicated; E07.9 Disorder of thyroid, unspecified
CPT/HCPCS: 00952; 58558; 36415; 84702; 85025; 88305; J1100; J2250; J2405; J2704; J3010

== ENCOUNTER 2024-05-18 12:26 | Outpatient (OUT) | payer OTHER, SELFPAY ==
--- OUTSIDE RECORDS SUMMARY | 2024-05-18 12:31 | XMS_ITS | CCD ---
Author Organization [facility] Informat ion Partnership [facility] Care Team Providers Care Emu Farmer Name Role Phone Jyoti Dempsey Primary Care [...] Unavailable Jag Gross DO Primary Care Provider Jag Gross MD Primary Care Provider Jag Gross DO Primary Care Provider SCOOTER MAHONEY Attending Unavailable JAG GROSS Primary Care Unavailable DARRON HITCHCOCK Attending Unavailable LI KAHN Attending Unavailable JR. MAYNARD GEORGE C Attending Unavaila WOO Bo Attending Unavailable WOO ADAMS Attending Unavailable WOO ADAMS Attending Unavailable DARRON HITCHCOCK Attending Unavailable WOO ADAMS Attending Unavailable WOO ADAMS Attending Unavailable DARRON HITCCHOCK Attending Unavailable WOO ADAMS Attending Unavailable JACQUELINE LUJAN Attending Unavailable WOO ADAMS Attending Unavailable DARRON HITCHCOCK Attending Unavailable Allergies Allergy Classification Reported Allergen(s) Allergy Type Date of Onset Reaction(s) Facility (1 source) Levamisole Drug Allergy 5 [facility] Repository (10 sources) Phenergan Plain Propensity to adverse reactions to drug 4 Abnormal Behavior [facility] (16 sources) Erythromycin Drug Allergy 4 Rash [facility] (13 sources) Promethazine Drug Allergy 4 Other [facility] Medications Current Medications Medication Drug Class(es) Dates Sig (Normalized) Sig (Original) cariprazine 1.5 mg oral capsule (4 sources) Atypical Antipsychotic Start: 01-03-2024 take 1 capsule by mouth in the morning cariprazine (VRAYLAR) 1.5 mg capsule Take 1 capsule (1.5 mg total) by mouth in the morning. 14 capsule 01/03/2024 Active levothyroxine sodium 0.1 mg oral tablet (20 sources) l-Thyroxine Start: 01-14-2023 End: 01-15-2024 take 1 tablet by mouth once daily levothyroxine (SYNTHROID, LEVOTHROID) 100 MCG tablet Indications: Hypothyroidism, unspecified type take 1 tablet by mouth every day 90 tablet 2 01/15/2024 Active take 1 tablet by mouth once anamika y levothyroxine (SYNTHROID) 75 MCG tablet Take 1 tablet by mouth Daily Active ondansetron 4 mg oral tablet (1 source) Serotonin-3 Receptor Antagonist Start: 02-26-2024 take 1 tablet by mouth three times daily as needed for nausea ondansetron (ZOFRAN) 4 MG tablet Take 1 tablet by mouth 3 times daily as needed for Nausea or Vomiting 15 tablet 02/26/2024 Active Start: 02-26-2024 take 1 tablet by ladi th three times daily as needed for nausea ondansetron (ZOFRAN) 4 MG tablet Take 1 tablet by mouth 3 times daily as needed for Nausea or Vomiting 15 tablet 02/26/2024 Active venlafaxine 75 mg oral tablet (20 sources) Serotonin and Norepinephrine Reuptake Inhibitor Start: 01-14-2023 End: 03-31-2024 take 1 tablet by mouth once daily venlafaxine (EFFEXOR) 75 mg tablet Indications: Major depressive disorder with single episode, in full remission (CMS-HCC) TAKE 1 TABLET BY MOUTH EVERY DAY 90 tablet 2 03/31/2024 Active Venlafaxine HCl (EFFEXOR XR PO) Take by mouth Active Completed/Discontinued Medications Medication Drug Class(es) Dates Sig (Normalized) Sig (Original) acetaminophen 325 mg oral tablet (3 sources) End: 01-03-2024 take 2 tablets by mouth every six hours as needed for pain acetaminophen (TYLENOL) 325 mg tablet Take 2 tablets (650 mg total) by mouth every 6 (six) hours as needed for pain. 01/03/2024 Discontinued (Therapy completed) ibuprofen 600 mg oral tablet (9 sources) Nonsteroidal Anti-inflammatory Drug Start: 02-26-2024 End: 02-26-2024 take 1 dose by mouth once 600 mg, Oral, ONCE, 1 dose, On 02/26/24 at 0945 Start: 05-16-2023 End: 01-03-2024 take 1 tablet by mouth every eight hours as needed for pain ibuprofen (MOTRIN) 800 mg tablet Indications: Bilateral carpal tunnel syndrome TAKE 1 TABLET BY MOUTH EVERY 8 HOURS NEEDED FOR PAIN 90 tablet 06/16/2023 Active methylPREDNISolone (10 sources) Corticosteroid Start: 01-04-2024 End: 04-12-2024 methylPREDNISolone (Medrol Dospak) 4 MG tablets Indications: Left hand pain Follow schedule on package instructions 21 tablet 01/04/2024 04/12/2024 Discontinued Start: 01-04-2024 methylPREDNISo lone (Medrol Dospak) 4 MG tablets Indications: Left hand pain Follow schedule on package instructions 21 tablet 01/04/2024 Active Start: 05-16-2023 End: 07-25-2023 take 1 tablet by mouth in the morning methylPREDNISolone (MEDROL, VAHID,) 4 mg tablet Indications: Bilateral carpal tunnel syndrome Take 1 tablet (4 mg total) by mouth in the morning. follow package directions. 21 tablet 05/16/2023 07/25/2023 Discontinued (Therapy completed) Problems Active Problems Problem Classification Problem Date Documented Date Episodic/Chronic Abdominal pain (1 source) Pain in pelvis; Translations: [Pelvic and perineal pain] 05-08-2024 Episodic Immunizations and screening for infectious disease (3 sources) Exposure to communicable disease; Translations: [Encounter for observation for suspected exposure to other biological agents ruled out] Onset: 02-12-2020 Episodic Menopausal disorders (2 sources) Postmenopausal bleeding; Translations: [Postmenopausal bleeding] 04-12-2024 Chronic Menstrual disorders (2 sources) Menorrhagia; Translations: [Excessive and frequent menstruation with regular cycle] 05-08-2024 Chronic Mood disorders (12 sources) Depressive disorder; Translations: [Depression] Onset: 12-29-2022 12-29-2022 Chronic Other aftercare (2 sources) Postoperative visit; Translations: [Encounter for other specified surgical aftercare] 12-15-2023 Episodic Other connective tissue disease (2 sources) Pain of left hand; Translations: [Pain in left hand] 01-04-2024 Episodic Other female genital disorders (1 source) Pain in female genitalia on intercourse; Translations: [Unspecified dyspareunia] 05-08-2024 Chronic Other nervous system disorders (2 sources) [...] MENOPAUSAL STATE] Onset: 01-15-2022 Episodic Substance-related disorders (11 sources) Nicotine dependence, cigarettes, uncomplicated; Translations: [Cigarette smoker ] Onset: 09-02-2021 12-29-2022 Chronic Thyroid disorders (12 sources) Hypothyroidism; Translations: [Hypothyroidism, unspecified] Onset: 12-29-2022 12-29-2022 Chronic Viral infection (1 source) Disease caused by 2019-nCoV; Translations: [COVID-19] 02-26-2024 Episodic Viral infection (1 source) COVID-19; Translations: [COVID-19] Onset: 02-26-2024 Past or Other Problems Problem Classification Problem Date Documented Da te Episodic/Chronic E Codes: Natural/environment (1 source) Bitten by cat, initial encounter; Translations: [BITTEN BY CAT INITIAL ENCOUNTER] Onset: 09-02-2021 Episodic Mood disorders (10 sources) Mood disorders Onset: 05-16-2023 Resolved: 07-25-2023 05-16-2023 Open wounds of extremities (1 source) Open bite of right hand, initial encounter; Translations: [OPEN BITE RIGHT HAND INITIAL ENC] Onset: 09-02-2021 Episodic Other aftercare (1 source) 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; Translations: [OTH VENEREAL DISEASE INVESTIGATOR CURRENT DRUG THERAPY] Onset: 09-02-2021 Episodic Other connective tissue disease (4 sources) Pain in right hand; Translations: [PAIN IN RIGHT HAND] Onset: 08-30-2021 Episodic Other nervous system disorders (1 source) Pain in limb - multiple; Translations: [Paresthesia of skin] 07-25-2023 Episodic Other nutritional; endocrine; and metabolic disorders (12 sources) Overweight; Translations: [Overweight] Onset: 12-29-2022 12-29-2022 Episodic Skin and subcutaneous tissue infections (1 source) Cellulitis of right upper limb; Translations: [CELLULITIS OF RIGHT UPPER LIMB] Onset: 09-02-2021 Episodic Results Test Name Value Interpretation Reference Range Facility COVID-19, Rapidon 02-26-2024 Interpretation and review of laboratory results Abnormal [facility] SARS-CoV-2 (COVID-19) RdRp gene ANALIA+probe Ql (Resp) Detected Abnormal Not Detected [facility] Comment on above: Rapid NAAT: The specimen is POSITIVE for SARS-Cov-2, the novel coronavirus associated with COVID-19. The ID NOW COVID-19 assay is designed to detect the virus that causes COVID-19 in patients with signs and symptoms of infection who are suspected of COVID-19. An individual without symptoms of COVID-19 and who is not shedding SARS-CoV-2 virus would expect to have a negative (not detected) result in this assay. Methodology: Isothermal Nucleic Acid Amplification Results reported to the appropriate Health Department Specimen Description .NASOPHARYNGEAL SWAB [facility] Flu A/B Ag Detectionon 02-25 Flu A Ag Detection Negative Normal NEG [facility] Comment on above: Result Comment: for Influenza A Antigen Performed By: #### F JON #### [facility] [address] [place] [address] Healthcare Risk Control Consultant: Leander Arredondo MD Flu B Ag Detection Negative Normal NEG [facility] Comment on above: Result Comment: for Influenza B Antigen. Performed By: #### F LUABA #### [facility] [address] [place] [address] Healthcare Risk Control Consultant: Leander Arredondo MD Portable XR Chest AP single viewon 02-26-2024 1. No acute abnormality. [facility] EXAMINATION: ONE XRAY VIEW OF THE CHEST 02/26/2024 9:48 am COMPARISON: None available. HISTORY: ORDERING SYSTEM PROVIDED HISTORY: cough, congestion r/o pna TECHNOLOGIST PROVIDED HISTORY: cough, congestion r/o pna FINDINGS: The lungs are clear. The cardiac silhouette is within normal limits. There is no pneumothorax or pleural effusion. [facility] Joey Mohan MD - 02/26/2024 EXAMINATION: ONE XRAY VIEW OF THE CHEST 02/26/2024 9:48 am COMPARISON: None available. HISTORY: ORDERING SYSTEM PROVIDED HISTORY: cough, congestion r/o pna TECHNOLOGIST PROVIDED HISTORY: cough, congestion r/o pna FINDINGS: The lungs are clear. The cardiac silhouette is within normal limits. There is no pneumothorax or pleural effusion. IMPRESSION: 1. No acute abnormality. [facility] Radiology Study observation (narrative) [facility] Portable XR Chest AP single viewOrdered By: Joey Mohan on 02-26-2024 [facility] Work Phone: Rapid influenza A/B antigens on 02-26-2024 FLUAV Ag Ql (Unsp spec) Negative NEGATIVE [facility] Comment on above: for Influenza A Anti gen FLUBV Ag Ql (Unsp spec) Negative NEGATIVE [facility] Comment on above: for Influenza B Anti gen. [facility] [id number] 02-26-2024 SARS-CoV-2 (COVID-19) RNA ANALIA+probe Ql (Unsp spec) Detected Abnormal [facility] Comment on above: Result Comment: Rapid NAAT: The specimen is POSITIVE for SARS-Cov-2, the novel coronavirus associated with COVID-19. The ID NOW COVID-19 assay is designed to detect the virus that causes COVID-19 in patients with signs and symptoms of infection who are suspected of COVID-19. An individual without symptoms of COVID-19 and who is not shedding SARS-CoV-2 virus would expect to have a negative (not detected) result in this assay. Methodology: Isothermal Nucleic Acid Amplification Results reported to the appropriate Health Department Performed By: #### C OVRB #### [facility] [address] [place] [address] Healthcare Risk Control Consultant: Leander Arredondo MD XR CHEST PORTABLEon 02-26-20 24 XR CHEST PORTABLE EXAMINATION: ONE XRAY VIEW OF THE CHEST 02/26/2024 9:48 am COMPARISON: None available. HISTORY: ORDERING SYSTEM PROVIDED HISTORY: cough, congestion r/o pna TECHNOLOGIST PROVIDED HISTORY: cough, congestion r/o pna FINDINGS: The lungs are clear. The cardiac silhouette is within normal limits. There is no pneumothorax or pleural effusion. IMPRESSION: 1. No acute abnormality. Interpreted by: Joye Mohan MD Signed by: Joey Mohan MD 02/26/24 Final result Normal [facility] Comprehensive metabolic pane stanley 01-03-2024 Albumin [Mass/Vol] 4.5 g/dL 3.2 - 5.3 g/dL [facility] ALP [Catalytic activity/Vol] 70 U/L 39 - 130 U/L [facility] ALT No additional P-5'-P [Catalytic activity/Vol] 14 U/L 0 - 31 U/L [facility] Anion gap [Moles/Vol] 7 mmol/L 5 - 15 mmol/L [facility] AST [Catalytic activity/Vol] 20 U/L 0 - 41 U/L [facility] Bilirubin [Mass/Vol] 0.3 mg/dL 0.3 - 1.2 mg/dL [facility] Calcium [Mass/Vol] 9.9 mg/dL 8.5 - 10. 5 mg/dL [facility] Chloride [Moles/Vol] 103 mmol/L 98 - 109 mmol/L [facility] CO2 [Moles/Vol] 30 mmol/L 22 - 32 mmol/L [facility] Creatinine [Mass/Vol] 0.98 mg/dL 0.40 - 1.00 mg/dL [facility] Comment on above: METHOD TRACEABLE TO IDMS STANDARD eGFR (CKD-EPI)non-race dependent 69 - PINF [facility] Comment on above: Reported eGFR is based on the CKD-EPI 2020 equation that does not use a race coefficient. Glucose [Mass/Vol] 83 mg/dL 65 - 99 mg/dL [facility] Potassium [Moles/Vol] 3.9 mmol/L 3.5 - 5.0 mmol/L [facility] Protein [Mass/Vol] 7.6 g/dL 6.0 - 8.0 g/dL [facility] Sodium [Moles/Vol] 140 mmol/L 134 - 146 mmol/L [facility] Urea nitrogen [Mass/Vol] 23 mg/dL 5 - 23 mg/dL [facility] Lipid 1996 panelon 4 Cholesterol [Mass/Vol] 213 mg/dL High 150 - 200 mg/dL [facility] Cholesterol in HDL [Mass/Vol] 71 mg/dL 39 - PINF mg/dL [facility] Comment on above: HDL <40 mg/dL - High Risk HDL > or = 40mg/dL- Desirable HDL >60 mg/dL - Negative Risk Cholesterol in LDL [Mass/Vol] 128 mg/dL NINF - 130 mg/dL [facility] Comment on above: LDL <100 mg/dL - Desirable LDL >160 mg/dL - High Risk Cholesterol in VLDL [Mass/Vol] 14 mg/dL 0 - 30 mg/dL [facility] Cholesterol.total/C holesterol in HDL [Mass ratio] 3.0 {ratio} 1.0 - 5.0 [facility] Interpretation and review of laboratory results Abnormal [facility] Triglyceride [Mass/Vol] 69 mg/dL 27 - 150 mg/dL [facility] No Panel Informationon 01-02 [facility] Thyroid profile includes TSH FT4on 01-03-2024 Free T4 [Mass/Vol] 0.90 ng/dL 0.61 - 1. 60 ng/dL [facility] TSH Qn 2.19 m[IU]/L [facility] ALL CBC WITH AUTO DIFFon BASOPHILS ABSOLUTE AUTO 0.1 [facility] Basophils/100 WBC (Bld) 1.7 % 0.2 - 2.0 % [facility] Eosinophils/100 WBC (Bld) 2.2 % 0.9 - 7.0 % [facility] Erythrocyte distribution width (RBC) [Ratio] 13.8 % 11.0 - 15.0 % [facility] Hematocrit (Bld) [Volume fraction] 35.4 % Low 36.0 - 48.0 % [facility] Hemoglobin (Bld) [Mass/Vol] 11.1 g/dL Low 12.0 - 16.0 g/dL [facility] IMMATURE GRANULOCYTES ABS AUTO 0.01 [facility] Immature granulocytes/100 WBC (Bld) 0.2 % 0.0 - 0.5 % [facility] Interpretation and review of laboratory results Abnormal [facility] LYMPHOCYTES ABSOLUTE AUTO 2.0 [facility] Lymphocytes/100 WBC (Bld) 36.8 % 20.5 - 60.0 % [facility] MCH (RBC) [Entitic mass] 24.8 pg Low 26.7 - 34.0 pg [facility] MCHC (RBC) [Mass/Vol] 31.4 g/dL 29.9 - 35.2 g/dL [facility] MCV (RBC) [Entitic vol] 79.0 fL Low 81.0 - 99.0 fL [facility] MONOCYTES ABSOLUTE AUTO 0.4 [facility] Monocytes/100 WBC (Bld) 6.9 % 1.7 - 12.0 % [facility] NEUTROPHILS ABSOLUTE AUTO 2.8 [facility] Neutrophils/100 WBC (Bld) 52.2 % 43.0 - 75.0 % [facility] Platelet mean volume (Bld) [Entitic vol] 9.2 fL Low 9.5 - 13.5 fL [facility] TBH EO # 0.1 [facility] PLT 328 [facility] RBC 4.48 [facility] WBC 5.4 [facility] MG MAMM SCREEN 3D LEVAR CADon 01-08-2022 MG MAMM SCREEN 3D LEVAR CAD Patient: MAGY FARIAS Exam Date: 01/08/2022 : 1970 Gender:F Ordering : DR KENROY STEVENSON . Admission #: [id number] Family : Order #: [id number] CLICK HERE TO VIEW EXAM RADIOLOGY REPORT PROCEDURE: MAMMOGRAM SCREENING 3D BILATERAL CAD COMPARISON: MG MAMM SCREEN 3D LEVAR CAD, 12/16/2020. INDICATIONS: Screening mammography Calculator Name NCI Breast Cancer Risk Assessment Tool 5 Year Breast Cancer Risk 0.70% Lifetime Breast Cancer Risk 6.50% Personal Breast Cancer No Personal Ovarian Cancer No Treatments None Family Cancers None LOCATION: [facility] BREAST COMPOSITION: Extremely dense, which lowers [...] Leander Olmedo MD on 01/08/2022 at 10:28 [facility] XR DEXA BONE DENSITYon 01-08 [...] authenticated by: SHAINA WINKLER Date: 2022-01-08 10:20 [facility] PAP ACOG PANEL 2: 30 to 65on 12-22-2021 . . Normal [facility] Comment on above: Result Comment: Perf ormed at: WB Performed By: #### [id number] #### [facility] [address] [address] [address] Kyleigh Mittal Age Gdln ACOG Testing 30-65 Normal [facility] Comment on above: Performed By: #### [id number] #### [facility] [address] [address] [address] Kyleigh Mittal DIAGNOSIS: Comment Normal [facility] Comment on above: Result Comment: NEGA TIVE FOR INTRAEPITHELIAL LESION OR MALIGNANCY. Performed at: WB Performed By: #### [id number] #### [facility] [address] [place] [address] Dr. Kyleigh Mittal HPV Aptima Positive Abnormal Negative [facility] Comment on above: Result Comment: This nucleic acid amplification test detects fourteen high-risk HPV types (16,18,31,33,35,39,45,51,52,56,58,59,66,68) without differentiation. Performed at: =G Performed By: #### [id number] #### [facility] [address] [place] [address] Dr. Kyleigh Mittal HPV Genotype 16 Negative Normal Negative [facility] Comment on above: Result Comment: Perf ormed at: =G Performed By: #### [id number] #### [facility] [address] [address] [address] Kyleigh Mittal HPV Genotype 18,45 Negative Normal Negative [facility] Comment on above: Result Comment: Perf ormed at: =G Performed By: #### [id number] #### [facility] [address] [address] [address] Kyleigh Mittal Methodology: Comment Normal [facility] Comment on above: Result Comment: This liquid based ThinPrep(R) pap test was screened with the use of an image guided system. Performed at: WB Performed By: #### [id number] #### [facility] [address] [place] [address] Dr. Kyleigh Mittal Note: Comment Normal [facility] Comment on above: Result Comment: The Pap smear is a screening test designed to aid in the detection of premalignant and malignant conditions of the uterine cervix. It is not a diagnostic procedure and should not be used as the sole means of detecting cervical cancer. Both false-positive and false-negative reports do occur. . Performed at: WB Performed By: #### [id number] #### [facility] [address] [place] [address] Dr. Kyleigh Mittal Performed by: Comment Normal [facility] Comment on above: Result Comment: Sharon Jalloh, Cigarette Tipper (ASCP) Performed at: WB Performed By: #### [id number] #### [facility] [address] [place] [address] Dr. Kyleigh Mittal Specimen adequacy: Comment Normal [facility] Comment on above: Result Comment: Sati sfactory for evaluation. Endocervical and/or squamous metaplastic cells (endocervical component) are present. Performed at: WB Performed By: #### [id number] #### [facility] [address] [place] [address] Dr. Kyleigh Mittal CBC AUTO DIFFon 08-31-2021 BASO # 0.1 103/ul Normal 0.0-0.1 [facility] Comment on above: Performed By: #### C BC #### [facility] [address] [place] [address] Dr. Kyleigh Mittal Basophils/100 WBC (Bld) 0.9 % Normal 0.2-2.0 [facility] Comment on above: Performed By: #### C BC #### [facility] [address] [place] [address] Dr. Kyleigh Mittal EO # 0.2 103/ul Normal 0.0-0.7 [facility] Comment on above: Performed By: #### C BC #### [facility] [address] [place] [address] Dr. Kyleigh Mittal Eosinophils/100 WBC (Bld) 2.6 % Normal 0.9-7.0 [facility] Comment on above: Performed By: #### C BC #### [facility] [address] [place] [address] Dr. Kyleigh Mittal Erythrocyte distribution width (RBC) [Ratio] 13.9 % Normal 11.0-15.0 [facility] Comment on above: Performed By: #### C BC #### [facility] [address] [place] [address] Dr. Kyleigh Mittal Hematocrit (Bld) [Volume fraction] 38.1 % Normal 36.0-48.0 [facility] Comment on above: Performed By: #### C BC #### [facility] [address] [place] [address] Dr. Kyleigh Mittal Hemoglobin (Bld) [Mass/Vol] 11.7 g/dL Critically low 12.0-16.0 [facility] Comment on above: Performed By: #### C BC #### [facility] [address] [place] [address] Dr. Kyleigh Mittal IG # 0.02 10e3/ul Normal 0.00-0.03 [facility] Comment on above: Performed By: #### C BC #### [facility] [address] [place] [address] Dr. Kyleigh Mittal IG % 0.3 % Normal 0.0-0.5 [facility] Comment on above: Performed By: #### C BC #### [facility] [address] [place] [address] Dr. Kyleigh Mittal LYMPH # 2.4 103/ul Normal 1.2-3.8 [facility] Comment on above: Performed By: #### C BC #### [facility] [address] [place] [address] Dr. Kyleigh Mittal Lymphocytes/100 WBC (Bld) 29.6 % Normal 20.5-60.0 [facility] Comment on above: Performed By: #### C BC #### [facility] [address] [place] [address] Dr. Kyleigh Mittal MANUAL DIFF REQ NO Normal [facility] Comment on above: Performed By: #### C BC #### [facility] [address] [place] [address] Dr. Kyleigh Mittal MCH (RBC) [Entitic mass] 25.5 pg Critically low 26.7-34.0 [facility] Comment on above: Performed By: #### C BC #### [facility] [address] [place] [address] Dr. Kyleigh Mittal MCHC (RBC) [Mass/Vol] 30.7 g/dL Normal 29.9-35.2 [facility] Comment on above: Performed By: #### C BC #### [facility] [address] [place] [address] Dr. Kyleigh Mittal MCV (RBC) [Entitic vol] 83.2 fL Normal 81.0-99.0 [facility] Comment on above: Performed By: #### C BC #### [facility] [address] [place] [address] Dr. Kyleigh Mittal MONO # 0.8 103/ul Normal 0.3-0.8 [facility] Comment on above: Performed By: #### C BC #### [facility] [address] [place] [address] Dr. Kyleigh Mittal Monocytes/100 WBC (Bld) 9.7 % Normal 1.7-12.0 [facility] Comment on above: Performed By: #### C BC #### [facility] [address] [place] [address] Dr. Kyleigh Mittal NEUT # 4.5 103/ul Normal 1.4-6.5 [facility] Comment on above: Performed By: #### C BC #### [facility] [address] [place] [address] Dr. Kyleigh Mittal Neutrophils/100 WBC (Bld) 56.9 % Normal 43.0-75.0 [facility] Comment on above: Performed By: #### C BC #### [facility] [address] [place] [address] Dr. Kyleigh Mittal Platelet mean volume (Bld) [Entitic vol] 9.7 fL Normal 9.5-13.5 [facility] Comment on above: Performed By: #### C BC #### [facility] [address] [place] [address] Dr. Kyleigh Mittal PLT 306 103/ul Normal 150-450 [facility] Comment on above: Performed By: #### C BC #### [facility] [facility] [address] [place] [address] Dr. Kyleigh Mittal RBC 4.58 106/ul Normal 4.20-5.40 [facility] Comment on above: Performed By: #### C BC #### [facility] [address] [place] [address] Dr. Kyleigh Mittal WBC 8.0 103/ul Normal 4.0-11.0 [facility] Comment on above: Performed By: #### C BC #### [facility] [address] [place] [address] Dr. Kyleigh Mittal CULTURE BLOODon 08-31-2021 Microscopic examination of blood, culture Culture Observations: NO GROWTH AT 5 DAYS. Isolate 1 BC_BA_NA Normal [facility] Comment on above: Performed By: #### B [id number] #### [facility] [address] [place] [address] Dr. Kyleigh Mittal Microscopic examination of blood, culture Culture Observations: NO GROWTH AT 5 DAYS. Isolate 1 BC_[id number] Normal [facility] Comment on above: Performed By: #### B [email or web address] #### [facility] [address] [place] [address] Dr. Kyleigh Mittal XR HAND RT MIN [...] by: Cosmo ALVARADO Date: 2021-08-31 00:59 Normal [facility] Vital Signs Date Time Vital Sign Value Performing Clinician Facility 05-08-2024 08:44-0500 Body mass index (BMI) [Ratio] 26.11 kg/m2 Darron Naldo DO Work Phone: [facility] 05-08-2024 08:44-0500 Body weight 69 kg Darron Naldo DO Work Phone: [facility] 05-08-2024 08:44-0500 Diastolic blood pressure 72 mm[Hg] Darron Naldo DO Work Phone: [facility] 05-08-2024 08:44-0500 Systolic blood pressure 108 mm[Hg] Darron Naldo DO Work Phone: [facility] 04-12-2024 11:44-0500 Body mass index (BMI) [Ratio] 26.26 kg/m2 Darron Naldo DO Work Phone: [facility] 04-12-2024 11:44-0500 Body weight 69.4 kg Darron Naldo DO Work Phone: [facility] 04-12-2024 11:44-0500 Diastolic blood pressure 76 mm[Hg] Darron Naldo DO Work Phone: [facility] 04-12-2024 11:44-0500 Systolic blood pressure 120 mm[Hg] Darron Naldo DO Work Phone: [facility] 02-26-2024 09:31-0500 Body temperature 98.4 [degF] Scooter Mahoney MD [facility] 02-26-2024 09:31-0500 Body weight 69.4 kg Scooter Mahoney MD [facility] 02-26-2024 09:31-0500 Diastolic blood pressure 66 mm[Hg] Scooter Mahoney MD Work Phone: [employer] [facility] 02-26-2024 09:31-0500 Heart rate 95 /min Scooter Mahoney MD [facility] 02-26-2024 09:31-0500 Respiratory rate 16 /min Scooter Mahoney MD Work Phone: [facility] [employer] 02-26-2024 09:31-0500 SaO2% (BldA) [Mass fraction] 96 % Scooter Mahoney MD Work [facility]: [facility] 02-26-2024 09:31-0500 Systolic blood pressure 96 mm[Hg] Scooter Mahoney MD Work Phone: [facility] [employer] 01-03-2024 14:12-0400 Body height 162.6 cm Jag [employer] DO Work Phone: [facility] [employer] 01-03-2024 14:12-0400 Body mass index (BMI) [Ratio] 26.06 kg/m2 Jag [employer] DO [facility] 01-03-2024 14:12-0400 Body temperature 98.01 [degF] Jag Furlong DO Work Phone: [facility] [employer] 01-03-2024 14:12-0400 Body weight 68.86 kg Jag Furlong DO Work Phone: [facility] [employer] 01-03-2024 14:12-0400 Diastolic blood pressure 68 mm[Hg] Jag Furlong DO Work Phone: [facility] [employer] 01-03-2024 14:12-0400 Heart rate 84 /min Jag [employer] DO [facility] 01-03-2024 14:12-0400 SaO2% (BldA) [Mass fraction] 99 % Jag Furlong DO [facility] 01-03-2024 14:12-0400 Systolic blood pressure 110 mm[Hg] Jag Furlong DO [facility] 12-15-2023 13:54-0400 Body height 162.6 cm Jacqueline Vandemere PA Work Phone: [facility] 12-15-2023 13:54-0400 Body mass index (BMI) [Ratio] 25.75 kg/m2 Jacqueline Lujan PA Work Phone: [facility] 12-15-2023 13:54-0400 Body weight 68.04 kg Jacqueline Lujan PA Work Phone: [facility] 12-15-2023 13:54-0400 Diastolic blood pressure 82 mm[Hg] Jacqueline Lujan PA Work Phone: [facility] 12-15-2023 13:54-0400 Systolic blood pressure 130 mm[Hg] Jacqueline Lujan PA Work Phone: [facility] 07-25-2023 15:31-0400 Diastolic blood pressure 60 mm[Hg] Jag Furlong DO Work Phone: [facility] [employer] 07-25-2023 15:31-0400 Systolic blood pressure 122 mm[Hg] Jag Furlong DO Work Phone: [facility] [employer] 07-25-2023 15:27-0400 Body height 162.6 cm Jag Furlong DO Work Phone: [facility] [employer] 07-25-2023 15:27-0400 Body mass index (BMI) [Ratio] 25.03 kg/m2 Jag Furlong DO Work Phone: [facility] [employer] 07-25-2023 15:27-0400 Body temperature 97.59 [degF] Jag Furlong DO [facility] 07-25-2023 15:27-0400 Body weight 66.13 kg Jag Furlong DO [facility] 07-25-2023 15:27-0400 Heart rate 98 /min Jag Furlong DO Work Phone: [facility] [employer] [facility] 07-25-2023 15:27-0400 SaO2% (BldA) [Mass fraction] 98 % Jag Furlong DO Work Phone: [employer] 05-16-2023 11:01-0500 Body height 162.6 cm Jag Furlong DO Work Phone: [employer] 05-16-2023 11:01-0500 Body mass index (BMI) [Ratio] 25.39 kg/m2 Jag Furlong DO [facility] 05-16-2023 11:01-0500 Body temperature 97.5 [degF] [employer] DO Work Phone: [employer] 05-16-2023 11:01-0500 Body weight 67.09 kg Jag Furlong DO Work Phone: [employer] 05-16-2023 11:01-0500 Diastolic blood pressure 70 mm[Hg] JagOrnisng DO [facility] 05-16-2023 11:01-0500 Heart rate 102 /min [employer] DO Work Phone: [employer] 05-16-2023 11:01-0500 SaO2% (BldA) [Mass fraction] 98 % Jag Furlong DO Work Phone: [employer] 05-16-2023 11:01-0500 Systolic blood pressure 130 mm[Hg] JagOrnisng DO Work Phone: [employer] Encounters Encounter Date Encounter Type Care Provider Facility Start: 05-08-2024 End: 05-08-2024 Bamboo flowsheet Darron Naldo DO Work Phone: [facility] Start: 05-08-2024 End: 05-08-2024 Bamboo flowsheet Darron Naldo DO Work Phone: [facility] Start: 05-08-2024 End: 05-08-2024 Office outpatient visit 15 minutes Darron Naldo DO Work Phone: [facility] Comment on above: Pre-op examination; Menorrhagia with regular cycle; Pelvic pain; Dyspareunia in female; Dysmenorrhea Start: 05-08-2024 End: 05-08-2024 Preprocedural examination done Darron Naldo DO Work Phone: [facility] Start: 05-08-2024 End: 05-08-2024 ambulatory DARRON NALDO Not Available Start: 04-12-2024 End: 04-12-2024 Bamboo flowsheet Darron Naldo DO Work Phone: [facility] Start: 04-12-2024 End: 04-12-2024 Bamboo flowsheet Darron Naldo DO Work Phone: [facility] Start: 04-12-2024 End: 04-12-2024 Office outpatient visit 15 minutes Darron Naldo DO Work Phone: [facility] Comment on above: Post-menopausal blee ding Start: 04-12-2024 End: 04-12-2024 ambulatory DARRON NALDO Not Available Start: 03-31-2024 End: 03-31-2024 Refill Jag Gross DO Work Phone: [facility] Comment on above: Major depressive dis order with single episode, in full remission ([facility]) Start: 02-26-2024 End: 02-26-2024 Emergency department patient visit Scooter Mahoney MD Work Phone: [facility] Comment on above: COVID-19 (Primary Dx ) Start: 01-14-2024 End: 01-15-2024 Refill Jag Gross DO Work Phone: [facility] Comment on above: Hypothyroidism, unsp ecified type Start: 01-04-2024 End: 01-04-2024 Postop follow up visit related to original px Woo NICHOLS Work Phone: [facility] Comment on above: S/P carpal tunnel re lease (Primary Dx); Left hand pain Start: 01-04-2024 End: 01-04-2024 ambulatory WOO ADAMS Not Available Start: 01-04-2024 End: 01-04-2024 Bamboo flowsheet Woo NICHOLS Work Phone: [facility] Start: 01-04-2024 End: 01-04-2024 Bamboo flowsheet Woo NICHOLS Work Phone: [facility] Start: 01-04-2024 End: 01-04-2024 Telephone encounter [facility]iana Shen [facility] Start: 01-03-2024 End: 01-03-2024 Patient encounter status Jag Gross DO Work Phone: [employer] Work Phone: Start: 01-03-2024 End: 01-03-2024 Periodic preventive med est patient 40-64yrs Jag Gross DO [facility] Comment on above: Well adult health ch renee (Primary Dx); Acquired hypothyroidism; Overweight; Major depressive disorder with single episode, in partial remission ([facility]) Start: 12-15-2023 End: 12-15-2023 Bamboo flowsheet Jacqueline NICHOLS Work Phone: [facility] Start: 12-15-2023 End: 12-15-2023 Bamboo flowsheet Jacqueline NICHOLS Work Phone: [facility] Start: 12-15-2023 End: 12-15-2023 Postop follow up visit related to original px Jacqueline NICHOLS Work Phone: [facility] Comment on above: Postoperative visit (Primary Dx) Start: 12-15-2023 End: 12-15-2023 ambulatory JACQUELINE LUJAN Not Available Start: 12-02-2023 End: 12-02-2023 Clinisync Result Encounter Darron Hitchcock DO Work Phone: [facility] Unsolicited Start: 12-02-2023 End: 12-02-2023 Clinisync Result Encounter Darron Arayao DO Work Phone: [facility] Unsolicited Start: 11-21-2023 End: 11-21-2023 ambulatory WOO ADAMS Not Available Start: 11-10-2023 End: 11-10-2023 ambulatory DARRON HITCHCOCK Not Available Start: 11-09-2023 End: 11-09-2023 ambulatory WOO ADAMS Not Available Start: 10-28-2023 End: 10-28-2023 ambulatory WOO ADAMS Not Available Start: 10-13-2023 End: 10-13-2023 ambulatory DARRON HITCHCOCK Not Available Start: 10-04-2023 End: 10-04-2023 ambulatory WOO ADAMS Not Available Start: 09-27-2023 End: 09-27-2023 ambulatory WOO ADAMS Not Available Start: 09-09-2023 End: 09-09-2023 ambulatory WOO ADAMS Not Available Start: 09-07-2023 End: 09-07-2023 ambulatory YVETTE NIETO Not Available Start: 08-10-2023 End: 08-10-2023 ambulatory LI KAHN Not Available Start: 07-27-2023 End: 07-28-2023 Telephone encounter [facility]na Victoria [facility] Start: 07-25-2023 End: 07-25-2023 Office outpatient visit 15 minutes Jag Gorss DO Work Phone: [facility] Comment on above: Paresthesia and pain of both upper extremities (Primary Dx); Overweight Start: 06-13-2023 Refill Jag Aj ng DO Work [facility]: [facility] Comment on above: Bilateral carpal asha stacie syndrome Start: 05-20-2023 Orders Only Jag Aj ng DO Work [facility]: [facility] Start: 05-19-2023 Telephone encounter Li Jalloh MA [facility] Start: 05-16-2023 End: 05-16-2023 Office outpatient visit 15 minutes Jag Krisit Gross DO Work Phone: [facility] Comment [...] consultation with patient Jyoti Dempsey Work Phone: [facility] Work Phone: Procedures Date Procedure Procedure Detail Performing Clinician Start: 02-26-2024 Radiologic exam ches t single view Scooter Mahoney MD Work Phone: Start: 02-26-2024 COVID-19, RAPID Scooter Mahoney MD Work Phone: Start: 02-26-2024 Iaadiadoo influenza Hermelindo Mahoney MD Work Phone: Start: 01-03-2024 Adult depression screening assessment Jag Yilong DO Work Phone: Start: 12-02-2023 ALL CBC WITH AUTO DIFF Darron Naldo DO Work Phone: Start: 07-25-2023 Adult depression screening assessment Jag Yilong DO Work Phone: Start: 05-16-2023 Adult depression screening assessment Jag Yilong DO Work Phone: Start: 01-08-2022 Mammography Jag gill DO Work Phone: History of decompres jerzy of median nerve S/P carpal tunnel release Woo NICHOLS Work Phone: Plan of Treatment Date Care Activity Detail Author Start: 01-08-2026 Screening for malign ant neoplasm of colon Colon Cancer Screening 3 Year Cologuard [facility] Start: 01-02-2025 Adult BMI Screening Adult BMI Screen ing [facility] Start: 01-02-2025 Depression Screening Depression Scre ening [facility] Start: 01-02-2025 Tobacco Screening Tobacco Screening [facility] Start: 07-24-2024 Adult BMI Screening Adult BMI Screen ing [facility] Start: 07-24-2024 Depression Screening Depression Scre ening [facility] Start: 07-24-2024 Tobacco Screening Tobacco Screening [facility] Start: 06-28-2024 Tobacco Counseling Tobacco Counselin g [facility] Start: 05-16-2024 Adult BMI Screening Adult BMI Screen ing [facility] Start: 05-16-2024 Depression Screening Depression Scre ening [facility] Start: 05-16-2024 Tobacco Screening Tobacco Screening [facility] Start: 05-08-2024 End: 05-08-2024 Patient encounter procedure 05/08/2024 8:30 AM EST Consult [facility] [address] [place] [phone] Darron Hitchcock, DO [address] [place] [address] Arrived [facility] Comment on above: Arrived Start: 05-02-2024 End: 05-02-2024 Patient encounter procedure 05/02/2024 2:50 PM EST Consult [facility] [address] [place] [phone] Darron Hitchcock, DO [address] [place] [address] [facility] Start: 04-12-2024 End: 04-12-2024 Patient encounter procedure 04/12/2024 11:10 AM EST Office Visit [facility] [address] [place] [phone] Darron Hitchcock, DO [address] [place] [address] Arrived [facility] Comment on above: Arrived Start: 04-04-2024 Administration of varicella zoster vaccine Zoster (Shingles) Vaccine (1 of 2) [facility] Comment on above: Postponed from 12/09 (Patient Refused) Start: 01-23-2024 End: 01-23-2024 Patient encounter procedure 01/23/2024 1:45 PM EDT Office Visit [facility] [address] [place] [phone] Jr. Yvette Maynard, DO [address] [facility] [address] [place] [address] [facility] Start: 01-04-2024 End: 01-04-2024 Patient encounter procedure 01/04/2024 2:45 PM EDT Office Visit [facility] [address] [facility] [phone] Woo Adams PA [address] [facility] [address] [place] [address] S/P carpal tunnel release (Primary Dx); Left hand pain [facility] Comment on above: S/P carpal tunnel re lease (Primary Dx); Left hand pain Start: 12-15-2023 End: 12-15-2023 Patient encounter procedure 12/15/2023 2:00 PM EDT Office Visit [facility] [address] [facility] [place] [address] Jacqueline Lujan PA [address] [facility] [address] [place] [address] Arrived [facility] Comment on above: Arrived Start: 12-04-2023 Influenza vaccination Influenza Vacc ine [facility] Start: 12-02-2023 End: 12-02-2023 Patient encounter procedure 12/02/2023 9:30 AM EDT Procedure Visit [facility] Darron Hitchcock, [address] Shan[address] Jall[address] [place] [id number] [facility] Start: 07-03-2023 Influenza vaccination Influenza Vacc ine [facility] Comment on above: Postponed from 12/03 (Patient Refused) Start: 05-16-2023 End: 05-16-2024 DBT Breast - bilateral screening Mammography screening bilateral with CAD Imaging Routine Encounter for screening mammogram for malignant neoplasm of breast Expected: 05/16/2023, Expires: 05/16/2024 [employer] Work Phone: Comment on above: Expected: 05/16/2023 , Expires: 05/16/2024 Start: 01-08-2023 Screening for malign ant neoplasm of breast Mammogram [facility] [employer] Start: 02-19-2020 SARS-CoV-2, ANALIA [facility] Work Phone: Start: 02-12-2020 COVID Drive up Testing [facility] Work Phone: Start: 12-09-1992 Screening for malign ant neoplasm of cervix [facility] Start: 12-09-1990 DTaP,Tdap and Td Vaccines (1 - Tdap) DTaP,Tdap and Td Vaccines (1 - Tdap) [facility] [employer] Start: 12-09-1989 Adult BMI Follow Up Plan Adult BMI Follow Up Plan [facility] [employer] End: 07-24-2024 EMG [facility] Neurology Routine Paresthesia and pain of both upper extremities 1 Occurrences starting 07/25/2023 until 07/24/2024 [employer] Work Phone: Comment on above: 1 Occurrences starti ng 07/25/2023 until 07/24/2024 Payers Date Payer Category Payer Managed Care Other (unspecified) [employer] [id number] 2022 Private Health Insurance [employer] [id number] 2022 Unknown [id number]. [id number] 1971 Unknown [id number] 2.16840.1.589738.3.579.2. 593 1971 Unknown [id number] 2.16840.1.041820.3.579.2. 593 1971 Unknown [id number] 2.16840.1.724865.3.579.2. 593 1971 Unknown [id number] 2.16840.1.178179.3.579.2. 173 1971 Unknown [id number] 2.16840.1.610401.3.579.2. 1259 1971 Unknown [id number] 2.16840.1.842696.3.579.2. 1259 1971 Unknown [id number] 2.16840.1.051392.3.579.2. 1259 1971 Unknown [id number] 2.16840.1.943367.3.579.2. 1259 1971 Unknown [id number] 2.16.840.1.996003.3.579.2. 1258 1971 Unknown [id number] 2.16.840.1.297636.3.579.2. 1258 1971 Unknown [id number] 2.16.840.1.383136.3.579.2. 1258 1971 Unknown [id number] 2.16.840.1.798194.3.579.2. 1258 1971 Unknown [id number] 2.16.840.1.850012.3.579.2. 1258 1971 Unknown [id number] 2.16.840.1.367867.3.579.2. 1258 1971 Unknown [id number] 2.16.840.1.547750.3.579.2. 1258 1971 Unknown [id number] 2.16.840.1.658203.3.579.2. 1258 1971 Unknown [id number] 2.16.840.1.795679.3.579.2. 1258 1971 Unknown [id number] 2.16.840.1.731807.3.579.2. 9 1959 Unknown [id number] 1959 Unknown [id number] Self-pay [id number] [id number]. 09586.5.4 Social History Date Type Detail Facility Tobacco smoking status Unknown if ever sm ok [facility] Work Phone: Start: 04-04-2014 [facility] Start: 04-04-2014 End: 06-07-2023 History of tobacco use Cigarette Smoker [facility] Start: 12-29-2022 End: 07-25-2023 Cigarettes smoked current (pack per day) - Reported 0.5 [facility] Start: 12-29-2022 End: 07-25-2023 Tobacco use and exposure Smokeless tobacco non-user [facility] Start: 05-16-2023 End: 07-25-2023 Alcohol intake Current drinker of alcohol (finding) [facility] Start: 12-29-2022 End: 05-16-2023 [facility] Util[facility] Has the [employer], oil, or water company threatened to shut off services in your home in past 12Mo No [facility] Are you now , , , , never or living with a partner? [facility] How often to you hav e a drink containing alcohol? 2-4 times a month [facility] How many standard drinks containing alcohol do you have on a typical day? 3 or 4 [facility] How often do you hav e 6 or more drinks on 1 occasion? Never [facility] How hard is it for y ou to pay for the very basics like food, housing, medical care, and heating Not hard at all [facility] Do you feel stress - tense, restless, nervous, or anxious, or unable to sleep at night because your mind is troubled all the time - these days [OSQ] To some extent [facility] Start: 12-29-2022 Alcohol Comment social [facility] Start: 1970 Sex Assigned At Not on file P [facility] Start: 07-25-2023 End: 09-09-2023 Tobacco smoking status WAIS Ex-smoker [facility] Start: 04-04-2014 End: 06-07-2023 History of tobacco use Current smoker [facility] Start: 02-26-2024 Tobacco smoking stat us [facility] Never smoked tobacco [facility] Start: 02-26-2024 Alcoholic beverage intake Lifetime non-drinker (finding) [facility] Start: 11-05-2014 Sex Female (finding) [facility] Clinical Notes 05-16-2023 to 05-08-2024 Karmen Lei LPN - 05/08/2024 8:30 AM Elaine Owens LPN - 04/12/2024 11:10 AM ESTDischaMAGDALENA Headley - 01/04/2024 2:45 PM MAGDALENA Patterson - 12/15/2023 2:00 PM EDT Note Date & Type Note Facility 05-08-2024 History of Present illness Narrative Reason for Appointment: Patient ID: Magy Farias is a 53 y.o. female who presents for No chief complaint on file. Patient presents today for Pre Op appointment. Patient is scheduled to undergo Da Jose assisted Laparoscopic Hysterectomy, possible exploratory laparotomy, possible BSO, possible cystoscopy on 05/31/[address] Hitchcock at [facility]. MEDICATIONS Current Outpatient Medications Medication Instructions levothyroxine (SYNTHROID, LEVOXYL) 100 mcg, Daily venlafaxine (EFFEXOR) 75 mg, Daily ALLERGIES Allergies Allergen Reactions Promethazine Other Makes her jumpy Other Reaction(s): Abnormal Behavior, RASH / NERVOUS JITTERS Made her jumpy Erythromycin Rash PROBLEMS Active Ambulatory Problems Diagnosis Date Noted No Active Ambulatory Problems Resolved Ambulatory Problems Diagnosis Date Noted No Resolved Ambulatory Problems Past Medical History: Diagnosis Date Thyroid disease ([facility]) HISTORY PAST MEDICAL HISTORY SOCIAL HISTORY Past Medical History: Diagnosis Date Thyroid disease ([facility]) Social History Tobacco Use Smoking status: Former Types: Cigarettes Smokeless tobacco: Not on file Vaping Use Vaping status: Every Day Substance Use Topics Alcohol use: Not on file Drug use: Not on file FAMILY HISTORY No family history on file. SURGICAL HISTORY Past Surgical History: Procedure Laterality Date CARPAL TUNNEL RELEASE Right 09/13/2023 DR MAYNARD CARPAL TUNNEL RELEASE Left 10/14/2023 DR MAYNARD GALLBLADDER HYSTEROSCOPY 12/02/2023 TUBAL LIGATION REVIEW OF SYSTEMS Review of Systems: Review of Systems Constitutional: Negative. HENT: Negative. Eyes: Negative. Respiratory: Negative. Cardiovascular: Negative. Gastrointestinal: Negative. Genitourinary: Positive for dyspareunia, menstrual problem and pelvic pain. Musculoskeletal: Negative. Skin: Negative. Neurological: Negative. All other systems reviewed and are negative. Hematological: Negative. Endocrine: Negative. Allergic/Immunologic: Negative. OBJECTIVE Objective: Physical Exam Constitutional: Appearance: Normal appearance. She is well-developed. Cardiovascular: Rate and Rhythm: Normal rate and regular rhythm. Pulmonary: Effort: Pulmonary effort is normal. Breath sounds: Normal breath sounds. Abdominal: General: Bowel sounds are normal. There is no distension. Palpations: Abdomen is soft. Tenderness: There is no abdominal tenderness. There is no guarding or rebound. Musculoskeletal: General: No swelling. Normal range of motion. Right lower leg: No edema. Left lower leg: No edema. Neurological: Mental Status: She is alert and oriented to person, place, and time. Skin: General: Skin is warm and dry. Psychiatric: Mood and Affect: Mood normal. Behavior: Behavior normal. Vitals and nursing note reviewed. Exam conducted with a state director present. Vitals: Estimated body mass index is 26.11 kg/m as calculated from the following: Height as of 12/15/23: 5' 4 . Weight as of this encounter: 152 lb 1.9 oz. BP: 108/72 No LMP recorded. ASSESSMENT & PLAN ICD-10-CM 1. Pre-op examination Z01.818 2. Menorrhagia with regular cycle N92.0 3. Pelvic pain R10.2 4. Dyspareunia in female N94.10 5. Dysmenorrhea N94.6 Pre Op: Patient is doing well but has complaints of heavy periods after ablation, dysmenorrhea, pelvic pain and dyspareunia. I have discussed conservative management vs. surgical management with the patient in detail and patient desires surgical management at this time. Patient will undergo Da Jose assisted Laparoscopic Hysterectomy, possible exploratory laparotomy, possible BSO, possible cystoscopy on 05/31/24. Surgical consents were signed, mmc was reviewed, and patient is to proceed to [facility] OR. Follow Up: Patient is to follow up at 1 & 6 weeks post operative to assess proper healing and recovery from procedure. Documented by Karmen Lei LPN on behalf of: Darron Hitchcock DO documented in this encounter [facility] 04-12-2024 History of Present illness Narrative Reason for Appointment: Patient ID: Magy Farias is a 53 y.o. female who presents for Menstrual Problem (Bleeding after ablation) Patient presents today for Consult appointment. MEDICATIONS Current Outpatient Medications Medication Instructions levothyroxine (SYNTHROID, LEVOXYL) 100 mcg, Daily venlafaxine (EFFEXOR) 75 mg, Daily ALLERGIES Allergies Allergen Reactions Phenergan [Promethazine] Other Makes her jumpy Erythromycin Rash PROBLEMS Active Ambulatory Problems Diagnosis Date Noted No Active Ambulatory Problems Resolved Ambulatory Problems Diagnosis Date Noted No Resolved Ambulatory Problems Past Medical History: Diagnosis Date Thyroid disease (CMS/HCC) HISTORY PAST MEDICAL HISTORY SOCIAL HISTORY Past Medical History: Diagnosis Date Thyroid disease (CMS/HCC) Social History Tobacco Use Smoking status: Former Types: Cigarettes Smokeless tobacco: Not on file Vaping Use Vaping status: Every Day Substance Use Topics Alcohol use: Not on file Drug use: Not on file FAMILY HISTORY No family history on file. SURGICAL HISTORY Past Surgical History: Procedure Laterality Date CARPAL TUNNEL RELEASE Right 09/13/2023 DR MAYANRD CARPAL TUNNEL RELEASE Left 10/14/2023 DR MAYNARD GALLBLADDER HYSTEROSCOPY 12/02/2023 TUBAL LIGATION REVIEW OF SYSTEMS Review of Systems: Review of Systems All other systems reviewed and are negative. OBJECTIVE Objective: Physical Exam Constitutional: Appearance: Normal appearance. She is well-developed. Cardiovascular: Rate and Rhythm: Normal rate and regular rhythm. Pulmonary: Effort: Pulmonary effort is normal. Breath sounds: Normal breath sounds. Abdominal: General: Bowel sounds are normal. There is no distension. Palpations: Abdomen is soft. Tenderness: There is no abdominal tenderness. There is no guarding or rebound. Musculoskeletal: General: No swelling. Normal range of motion. Right lower leg: No edema. Left lower leg: No edema. Neurological: Mental Status: She is alert and oriented to person, place, and time. Skin: General: Skin is warm and dry. Psychiatric: Mood and Affect: Mood normal. Behavior: Behavior normal. Vitals and nursing note reviewed. Exam conducted with a state director present. Vitals: Estimated body mass index is 26.26 kg/m as calculated from the following: Height as of 12/15/23: 5' 4 . Weight as of this encounter: 153 lb. BP: 120/76 No LMP recorded. ASSESSMENT & PLAN ICD-10-CM 1. Post-menopausal bleeding N95.0 Patient presents today to discuss bleeding after ablation and advised it could take 6-9 months to get full effect from ablation. Informed patient that oral control (progesterone only) to help reset irregular bleeding. Discussed if that does not work then could discuss surgical management via robotic hysterectomy. Discussed pros and cons of both options. Notified patient that a second ablation is not recommended. Patient prefers to proceed with surgical management with Robotic Hysterectomy and leave ovaries. Patient to return to clinic for pre-op appointment. Documented by Zainab Owens LPN on behalf of: Darron Hitchcock DO documented in this encounter [facility] 02-26-2024 Hospital Discharge instructions Scooter Mahoney MD - 02/26/2024 10:19 AM EST Continue isolate at home, or wear a mask when interacting with others. Continue taking Tylenol and Motrin as needed for pain and fevers. Continue hydrating The following attachments cannot be sent through Care Everywhere.5 Steps to Hand-Washing: Video (Liberian)Coronavirus Disease (COVID-19): Caring for Yourself: Quick List (Liberian)documented in this encounter [facility] 01-04-2024 History of Present illness Narrative Images from the original note were not included. HISTORY OF PRESENT ILLNESS: POST OP PT Magy Farias is an 53 y.o. @ female. No surgery found s/p surgery onNo surgery found (EST PT) S/P (L) CTR 10/14/23 (11WKS 5DAYS)- PT CONCERNED ABOUT SWELLING THAT IS NOT IMPROVEMENT- TRIED ICE- DENIES N/T- SOME WEAKNESS - PT STATES SWELLING IS NOT NEW; JUST NOT RESOLVING- SOME SENSITIVITY OVER INCISION PREVIOUS (R) CTR 09/13/23 - DR MAYNARD REVIEW OF SYSTEMS: General: Denies fever, fatigue or weight loss Lungs: Denies SOB Cardio: Denies chest pain GI: Denies indigestion or abdominal pain Neuro: Denies numbness or tingling, denies new onset paralysis Musculoskeletal: ( see note) PHYSICAL EXAM: Hand/Wrist Musculoskeletal Exam Inspection Left Left hand/wrist inspection is normal. Erythema: none Ecchymosis: none Edema: mild (ulnar apsect of carpal tunnel incision, tenderness to pyramid.) Deformity: none Wrist - prior incision: carpal tunnel Incision: well-healed Palpation Left Left hand palpation is normal. Palpation additional comments: DENIES PAIN TO PALPATION OF HAND/ WRIST JOINT Range of Motion Left Hand Left hand range of motion is normal. Range of motion additional comments: ABLE TO MAKE FULL FIST Strength Left Hand Left hand strength is normal. Strength additional comments: 5/5 [employer]ORDINATOR STRENGTH Neurovascular Left Left neurovascular exam is normal. Radial pulse: normal and 2+ Capillary refill: <3 sec General Constitutional: appears stated age Labored breathing: no Neurological: alert and oriented x3 Skin: intact Lymphadenopathy: none Procedures No orders of the defined types were placed in this encounter. ASSESSMENT: ICD-10-CM 1. S/P carpal tunnel release Z98.890 2. Left hand pain M79.642 methylPREDNISolone (Medrol Dospak) 4 MG tablets PLAN: F/U Dr. Maynard s/p MDP, consider compressive sleeve vs observation of symptoms. Tenderness and swelling ulnar aspect of incision, no s/s of infection, pt able to work and use hand without difficulty, denies paresthesias, ? Pyramid pain, shoulder resolve with time, recommend MDP. Pt notes symptoms are not impacting ADLS. Risk and benefits of steroid discussed Questions answered in laymen terms at the bedside. The diagnosis, home exercise plan and any ongoing restrictions/ recommendations reviewed. If unable to be reached in office, I recommend evaluation at nearest Emergency Room if any symptoms worsened or new symptoms develop for requiring urgent evaluation. documented in this encounter [facility] 01-04-2024 Miscellaneous Notes ----- Message from Dr. Jag Gross DO sent at 01/04/2024 12:41 PM EDT ----- Her total cholesterol was high at 213 but down a little bit from a year ago when it was 226. Her LDL also improved to 128. Her HDL has high at 71 which is positive risk factor. Her cardiovascular risk of heart attack and stroke in the next 10 years is low at 0.9% so no statin is indicated at this time. Her TSH and CMP were all normal. Relayed the note to pt. Pt verbalizes understanding. documented in this encounter [facility] 01-04-2024 Telephone encounter Note ----- Message from Dr. Jag Gross DO sent at 01/04/2024 12:41 PM EDT ----- Her total cholesterol was high at 213 but down a little bit from a year ago when it was 226. Her LDL also improved to 128. Her HDL has high at 71 which is positive risk factor. Her cardiovascular risk of heart attack and stroke in the next 10 years is low at 0.9% so no statin is indicated at this time. Her TSH and CMP were all normal. [facility] 01-04-2024 Telephone encounter Note Relayed the note to pt. Pt verbalizes understanding. [facility] 01-03-2024 History of Present illness Narrative Subjective Patient ID: Magy Farias is a 53 y.o. female. Magy presents for her annual wellness. She has no new problems to report. She is from her . She is going to counseling. She is using venlafaxine for depression and it works ok. She still has symptoms. The following portions of the patient's history were reviewed and updated as appropriate: allergies, current medications, past family history, past medical history, past social history, past surgical history, problem list, and medication reconciliation was completed including current medication and post discharge medication. Review of Systems Objective Physical Exam Constitutional: General: She is not in acute distress. Appearance: She is overweight. HENT: Head: Normocephalic. Right Ear: Tympanic membrane, ear canal and external ear normal. Left Ear: Tympanic membrane, ear canal and external ear normal. Nose: Nose normal. Mouth/Throat: Lips: [place]. Mouth: Mucous membranes are moist. Pharynx: Oropharynx is clear. Eyes: General: No scleral icterus. Extraocular Movements: Extraocular movements intact. Conjunctiva/sclera: Conjunctivae normal. Cardiovascular: Rate and Rhythm: Normal rate and regular rhythm. Pulses: Normal pulses. Heart sounds: Normal heart sounds. No murmur heard. Pulmonary: Effort: Pulmonary effort is normal. No respiratory distress. Breath sounds: Normal breath sounds. No wheezing, rhonchi or rales. Abdominal: General: Bowel sounds are normal. There is no distension. Palpations: Abdomen is soft. There is no mass. Tenderness: There is no abdominal tenderness. There is no guarding or rebound. Hernia: No hernia is present. Musculoskeletal: Cervical back: Neck supple. Right lower leg: No edema. Left lower leg: No edema. Lymphadenopathy: Cervical: No cervical adenopathy. Skin: General: Skin is warm. Neurological: General: No focal deficit present. Mental Status: She is alert and oriented to person, place, and time. Cranial Nerves: Cranial nerves 2-12 are intact. Gait: Gait is intact. Psychiatric: Attention and Perception: Attention and perception normal. Mood and Affect: Mood and affect normal. Speech: Speech normal. Behavior: Behavior normal. Behavior is cooperative. Thought Content: Thought content normal. Cognition and Memory: Cognition and memory normal. Judgment: Judgment normal. Assessment/Plan Magy was seen today for annual exam. Diagnoses and all orders for this visit: Well adult health check - Comprehensive metabolic panel; Future - Lipid panel; Future Health maintenance discussed. Check labs. Vaccines encouraged. Acquired hypothyroidism - Thyroid profile includes TSH FT4; Future Check TSH and T4 Overweight She is slightly overweight. She would benefit from wt loss. Diet, exercise and wt loss discussed Major depressive disorder with single episode, in partial remission (CMS-HCC) She is still having some symptoms. Discussed medication alternatives. Will try Vraylar 1.5mg daily. She will call next week with an update. Can increase dose if needed. Other orders - cariprazine (VRAYLAR) 1.5 mg capsule; Take 1 capsule (1.5 mg total) by mouth in the morning. [facility] History of Present illness Narrative Reason for Appointment: Patient ID: Magy Farias is a 53 y.o. female who presents for Post-op Visit Patient presents today for 1 Week Post Op Follow Up appointment. MEDICATIONS Current Outpatient Medications Medication Instructions levothyroxine (SYNTHROID, LEVOXYL) 100 mcg, Oral, Daily venlafaxine (EFFEXOR) 75 mg, Oral, Daily ALLERGIES Allergies Allergen Reactions Phenergan [Promethazine] Other Makes her jumpy Erythromycin Rash PROBLEMS Active Ambulatory Problems Diagnosis Date Noted No Active Ambulatory Problems Resolved Ambulatory Problems Diagnosis Date Noted No Resolved Ambulatory Problems Past Medical History: Diagnosis Date Thyroid disease (CMS/HCC) HISTORY PAST MEDICAL HISTORY SOCIAL HISTORY Past Medical History: Diagnosis Date Thyroid disease (CMS/HCC) Social History Tobacco Use Smoking status: Former Types: Cigarettes Smokeless tobacco: Not on file Vaping Use Vaping status: Every Day Substance Use Topics Alcohol use: Not on file Drug use: Not on file FAMILY HISTORY No family history on file. SURGICAL HISTORY Past Surgical History: Procedure Laterality Date CARPAL TUNNEL RELEASE Right 09/13/2023 DR MAYNARD CARPAL TUNNEL RELEASE Left 10/14/2023 DR MAYNARD GALLBLADDER HYSTEROSCOPY 12/02/2023 TUBAL LIGATION REVIEW OF SYSTEMS Review of Systems: Review of Systems Constitutional: Negative. HENT: Negative. Eyes: Negative. Respiratory: Negative. Cardiovascular: Negative. Gastrointestinal: Negative. Genitourinary: Negative. Musculoskeletal: Negative. Skin: Negative. Neurological: Negative. All other systems reviewed and are negative. Hematological: Negative. Endocrine: Negative. Allergic/Immunologic: Negative. OBJECTIVE Objective: Physical Exam Constitutional: Appearance: Normal appearance. She is normal weight. HENT: Head: Normocephalic. Cardiovascular: Rate and Rhythm: Normal rate. Pulses: Normal pulses. Pulmonary: Effort: Pulmonary effort is normal. Breath sounds: Normal breath sounds. Abdominal: Palpations: Abdomen is soft. Musculoskeletal: General: Normal range of motion. Neurological: General: No focal deficit present. Mental Status: She is alert and oriented to person, place, and time. Psychiatric: Mood and Affect: Mood normal. Behavior: Behavior normal. Thought Content: Thought content normal. Judgment: Judgment normal. Vitals and nursing note reviewed. Vitals: Estimated body mass index is 25.75 kg/m as calculated from the following: Height as of this encounter: 5' 4 . Weight as of this encounter: 150 lb. BP: 130/82 No LMP recorded. ASSESSMENT & PLAN No diagnosis found. Post Op Follow Up: Patient presents today for a postop follow up after having a D&C Hysteroscopy performed at [facility] with Dr. Hitchcock. Pathology results was reviewed with the patient in great detail and all restrictions have been lifted. Follow Up: Patient is to return to the office for annual exam unless needed otherwise. Documented by MAGDALENA Crane on behalf of: MAGDALENA Crane documented in this encounter [facility] 07-27-2023 Miscellaneous Notes Pt called returning our call and yes intermittent time. Just when she has it flare up. FMLA paper work is in the file.She is working 10 hrs a day now. Okay I filled out her FMLA form FMLA has been sent documented in this encounter [facility] 07-27-2023 Telephone encounter Note Pt called returning our call and yes intermittent time. Just when she has it flare up. FMLA paper work is in the file.She is working 10 hrs a day now. [facility] 07-27-2023 Telephone encounter Note Okay I filled out her FMLA form [facility] 07-27-2023 Telephone encounter Note FMLA has been sent [facility] 07-25-2023 History of Present illness Narrative Subjective Patient ID: Magy Farias is a 52 y.o. female. Magy presents for a recheck of hand problem. Pain is a 10 in right hand and a 7 in left hand. It is a mixture of pain and numbness. It seems to affect all of her hands. The steroids helped temporarily but not it is worse. They did cut back on overtime at work so that has helped. The following portions of the patient's history were reviewed and updated as appropriate: allergies, current medications, past family history, past medical history, past social history, past surgical history, problem list, and medication reconciliation was completed including current medication and post discharge medication. Review of Systems Objective Physical Exam Constitutional: General: She is not in acute distress. Appearance: She is not ill-appearing. Eyes: General: No scleral icterus. Extraocular Movements: Extraocular movements intact. Conjunctiva/sclera: Conjunctivae normal. Neurological: Mental Status: She is alert and oriented to person, place, and time. Cranial Nerves: Cranial nerves 2-12 are intact. Comments: +Tinel's and Phalen's signs. There was some pain with percussion over cubital tunnel. Psychiatric: Mood and Affect: Mood normal. Behavior: Behavior normal. Thought Content: Thought content normal. Judgment: Judgment normal. Assessment/Plan Magy was seen today for carpal tunnel numbness rates it a 10. Diagnoses and all orders for this visit: Paresthesia and pain of both upper extremities - EMG; Future Suspect CTS. Check EMG of b/l UE's. Continue wrist splints and NSAIDs. She defers time off. We'll manage further over phone based on results of EMG. May need ortho consult. Overweight She is overweight. She would benefit from wt loss documented in this encounter [facility] 05-19-2023 Miscellaneous Notes Patient called and stated [...] picked up note documented in this encounter [facility] 05-19-2023 Telephone encounter Note Patient called and stated that she still has numbness and tingling in her hands and wanted to know can you take her off till Tuesday? Her employer is working 12 hours so she could not due this with numb and tingling hands. [facility] 05-19-2023 Telephone encounter Note ok [facility] [employer] [facility] 05-19-2023 Telephone encounter Note Patient states it starts tomorrow [facility] 05-19-2023 Telephone encounter Note Okay. I printed out a note for her [facility] 05-19-2023 Telephone encounter Note Patient picked up note [facility] 05-16-2023 History of Present illness Narrative [...] her own appointment. documented in this encounter [facility] Evaluation note Diagnosis Bilateral carpal tunnel syndrome- Primary Carpal tunnel syndrome Overweight (BMI 25.0-29.9) Overweight Encounter for screening mammogram for malignant neoplasm of breast documented in this encounter [facility]* Diagnosis Bilateral carpal tunnel syndrome Carpal tunnel syndrome documented in this [facility]* Diagnosis Well adult health check- Primary Unspecified general medical examination Acquired hypothyroidism Unspecified hypothyroidism Overweight Major depressive disorder with single episode, in partial remission ([facility]-HCC) documented in this encounter [facility]* Diagnosis S/P carpal tunnel release- Primary Other postprocedural status Left hand pain Pain in soft tissues of limb [facility] Diagnosis Hypothyroidism, unspecified type documented in this encounter [facility]* Diagnosis COVID-19- Primary [facility] Postoperative visit- Primary documented in this encounter [facility]* Diagnosis Major depressive disorder with single episode, in full remission (CMS-HCC) documented in this encounter [facility]* Diagnosis Post-menopausal bleeding Postmenopausal bleeding documented in this encounter [facility]* Diagnosis Pre-op examination Menorrhagia with regular cycle Pelvic pain Dyspareunia in female Dysmenorrhea documented in this encounter [facility]* Diagnosis Paresthesia and pain of both upper extremities- Primary Overweight [facility] filedocumented in this [facility] on filedocumented in this encounter [facility] System[facility]ructionsNot on filedocumented in this encounter [facility]ructionsNot on filedocumented in this encounter [facility] System[facility]ructionsNot on filedocumented in this encounter [facility] Reason for Referral No Reason for Referral Recorded Assessments Findings Encounter Date Exposure to a viral disease Telemedicine Establisted Patient with Jyoti Dempsey [facility] 02/12/2020 Exposure to biological agent suspected Telemedicine Establisted Patient with Jyoti Dempsey [facility] 02/12/2020 Instructions Instructions not supported for this document type No Instructions Recorded History of Present Illness History of Present Illness not supported for this document type No History of Present Illness Recorded Family History Includes: Family History in patient's chart No Family History RecordedNo Family History Records FoundNo Family History Records FoundNo Family History Records Found Review of System Review of Systems not supported for this document type No Review of Systems Recorded Physical Exam Physical Exam not supported for this document type No Physical Exam Recorded Advance Directives Includes: Current Advance Directives No Advance Directives RecordedNo Advanced Directives Records FoundNo Advanced Directives Records FoundNo Advanced Directives Records [...] pital DATE CREATED AUTHOR AUTHOR'S ORGANIZ ATION 02/28/2024 [facility] DATE CREATED AUTHOR AUTHOR'S ORGANIZ ATION 05/09/2024 [facility] EPIC Reason for Visit (unrecogniz ed section and content) Reason Comments Numbness In the hand painful Reason Comments Med Refill Reason Comments Annual Exam Reason Comments Pain Reason Comments Illness Fever, chills, body aches, headache, and nausea. Symptoms starting Tuesday. Denies recent sick contacts. Tylenol taken 0700. Reason Comments Post-op Visit Reason Comments Menstrual Problem Bleeding after ablat ion Reason Comments carpal tunnel numbness rates it a 10 Care Teams (unrecognized sec tion and content) Emu Farmer Relationship Specialty Start Date End Date Jag Gross DO [address] [place] [address] PCP - General Family Medicine 12/29/22 Emu Farmer Relationship Specialty Start Date End Date Jag Gross DO [address] [place] [address] PCP - General Family Medicine 12/29/22 Emu Farmer Relationship Specialty Start Date End Date Jag Gross DO [address] [place] [address] PCP - General Family Medicine 12/29/22 Emu Farmer Relationship Specialty Start Date End Date Jag Gross DO [address] [place] [address] PCP - General Family Medicine 12/29/22 Emu Farmer Relationship Specialty Start Date End Date Jag Gross DO [address] [place] [address] PCP - General Family Medicine 12/29/22 Emu Farmer Relationship Specialty Start Date End Date Jag Gross MD [address], [place] [address] PCP - General Family Medicine 08/10/23 Emu Farmer Relationship Specialty Start Date End Date Jag Gross MD [address] [place] [address] PCP - General Family Medicine 08/10/23 Emu Farmer Relationship Specialty Start Date End Date Jag Gross DO [address], [place] [address] PCP - General Family Medicine 12/29/22 Emu Farmer Relationship Specialty Start Date End Date Jag Gross DO [address] [place] [address] PCP - General Family Medicine 02/26/24 Emu Farmer Relationship Specialty Start Date End Date Jag Gross MD [address], [place] [address] PCP - General Family Medicine 08/10/23 Emu Farmer Relationship Specialty Start Date End Date Jag Gross MD [address], [place] [address] PCP - General Family Medicine 08/10/23 Emu Farmer Relationship Specialty Start Date End Date Jag Gross MD [address] [place] [address] PCP - General Family Medicine 08/10/23 Emu Farmer Relationship Specialty Start Date End Date Jag Gross MD [address], [place] [address] PCP - General Family Medicine 08/10/23 Emu Farmer Relationship Specialty Start Date End Date Jag Gross DO [address], [place] [address] PCP - General Family Medicine 12/29/22 Ordered Prescriptions (unrec ognized section and content) Prescription Sig Dispensed Refills Start Date End Da te ondansetron (ZOFRAN) 4 MG tablet Take 1 tablet by mouth 3 times daily as needed for Nausea or Vomiting 15 tablet 02/26/2024 Scheduled Active and Recently Administ ered Medications (unrecognized section and content) Medication Order 02/24/2024 02/25/2024 02/26/2024 ibuprofen (ADVIL;MOTRIN) tablet 600 mg (COMPLETED) 600 mg, Oral, ONCE, 1 dose, On 02/26/24 at 0945 0951 (Given - Provid er: Nuris Briseno RN) FOR RECORDS PERTAINING TO PATIENTS WHO ARE [...] BE BASED ON THE PRIMARY CLINICAL RECORDS. [employer] provides no warranty or guarantee of the accuracy or completeness of information in this document.
[2024-05-18 13:28] LABS: Basophils Absolute Auto 0.1 10^3/uL (0.0-0.1); Basophils Percent Auto 1.7 % (0.2-2.0); Eosinophils Absolute Auto 0.1 10^3/uL (0.0-0.7); Eosinophils Percent Auto 1.5 % (0.9-7.0); Hematocrit 33.4 % (36.0-48.0); Immature Granulocytes Abs Auto 0.01 10^3/uL (0.00-0.03); Immature Granulocytes Pct Auto 0.2 % (0.0-0.5); Lymphocytes Absolute Auto 1.5 10^3/uL (1.2-3.8); Lymphocytes Percent Auto 25.4 % (20.5-60.0); Mean Corpuscular HGB Conc 29.9 g/dL (29.9-35.2); Mean Corpuscular Volume 73.6 fL (81.0-99.0); Mean Platelet Volume 9.1 fL (9.5-13.5); Monocytes Absolute Auto 0.5 10^3/uL (0.3-0.8); Monocytes Percent Auto 9.3 % (1.7-12.0); Neutrophils Absolute Auto 3.6 10^3/uL (1.4-6.5); Neutrophils Percent Auto 61.9 % (43.0-75.0); Platelet Count 328 10^3/uL (150-450); Red Blood Count 4.54 10^6/uL (4.20-5.40); Red Cell Distribution Width 16.3 % (11.0-15.0); White Blood Count 5.8 10^3/uL (4.0-11.0)
[2024-05-18 13:37] LABS: INR 1.04; Partial Thromboplastin Time 25.2 sec (22.3-36.2)
[2024-05-18 13:46] LABS: Alanine Aminotransferase 22 U/L (14-59); Albumin Level 3.8 g/dL (3.4-5.0); Alkaline Phosphatase 75 U/L (46-116); Anion Gap 11.1; Aspartate Amino Transferase 18 U/L (15-37); BUN Creatinine Ratio 15.7; Bilirubin Direct <0.1 mg/dL (0.0-0.2); Bilirubin Total 0.2 mg/dL (0.2-1.0); Carbon Dioxide 31.6 mmol/L (21.0-32.0); Chloride 105 mmol/L (98-107); Estimated GFR (African America 57 (>=60 mL/min/1.73m^2); Estimated GFR (Non-African Ame 47 (>=60 mL/min/1.73m^2); Globulin 3.7 g/dL; Glucose 90 mg/dL (74-106); Potassium 3.7 mmol/L (3.5-5.1); Sodium 144 mmol/L (136-145); Total Protein 7.5 g/dL (6.4-8.2)
== END 2024-05-18 12:27 | disposition home or self-care (01) ==
LOC: PST 12:27
PROVIDERS: PCP Family Medicine; Visit Provider Obstetrics & Gynecology
DX: Z01.812 Encounter for preprocedural laboratory examination (principal); N92.0 Excessive and frequent menstruation with regular cycle; R10.2 Pelvic and perineal pain; N94.6 Dysmenorrhea, unspecified
CPT/HCPCS: 80048; 80076; 85025; 85610; 85730; 86850; 86900; 86901

== ENCOUNTER 2024-05-31 10:58 | Day surgery (SDC) | payer OTHER, SELFPAY ==
[2024-05-18 13:23] VITALS: BP 148/88; PULSE 80; TEMP 36.2; O2SAT 100; BMI 26.5
[2024-05-31] VITALS (27 sets, daily range): BP systolic 123–141; BP diastolic 76–92; PULSE 86–101; TEMP 36.3–36.4; O2SAT 86–99; BMI 26.1
[2024-05-31 11:06] LABS: Basophils Absolute Auto 0.1 10^3/uL (0.0-0.1); Basophils Percent Auto 1.5 % (0.2-2.0); Eosinophils Percent Auto 0.7 % (0.9-7.0); Hematocrit 32.3 % (36.0-48.0); Hemoglobin 9.6 g/dL (12.0-16.0); Immature Granulocytes Abs Auto 0.01 10^3/uL (0.00-0.03); Immature Granulocytes Pct Auto 0.2 % (0.0-0.5); Lymphocytes Percent Auto 33.8 % (20.5-60.0); Mean Corpuscular HGB Conc 29.7 g/dL (29.9-35.2); Mean Corpuscular Hemoglobin 21.9 pg (26.7-34.0); Mean Corpuscular Volume 73.7 fL (81.0-99.0); Mean Platelet Volume 8.6 fL (9.5-13.5); Monocytes Absolute Auto 0.5 10^3/uL (0.3-0.8); Monocytes Percent Auto 8.7 % (1.7-12.0); Neutrophils Absolute Auto 3.2 10^3/uL (1.4-6.5); Neutrophils Percent Auto 55.1 % (43.0-75.0); Platelet Count 277 10^3/uL (150-450); Red Blood Count 4.38 10^6/uL (4.20-5.40); Red Cell Distribution Width 16.6 % (11.0-15.0); White Blood Count 5.9 10^3/uL (4.0-11.0)
--- OUTSIDE RECORDS SUMMARY | 2024-05-31 11:06 | XMS_ITS | CCD ---
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 Name Role Phone Jyoti Dempsey Primary Care Provider [phone] KAYLYN, DR SINGER Primary Care Unavailable PAY, DR DAVALOS Admitting Unavailable PAY, DR DAVALOS Attending Unavailable PAY, DR DAVALOS Consulting Unavailable ALVARADO, INDIO Consulting Unavailable HOUSE, DR SINGER Primary Care Unavailable KARASIK, DR JASMINE Admitting Unavailable KARASIK, DR JASMINE Attending Unavailable KARASIK, DR JASMINE Consulting Unavailable BURBANK, DR LEANDER Avila Consulting Unavailable Zieber, DR Pinto Consulting Unavailable KARASIK, DR JASMINE Admitting Unavailable KARASIK, DR JASMINE Attending Unavailable HOUSE, DR SINGER Primary Care Unavailable KARASIK, DR JASMINE Consulting Unavailable Jag Gross MD Primary Care Provider Jag Gross DO Primary Care Provider [phone] SCOOTER MAHONEY Attending Unavailable JAG GROSS Primary Care Unavailable Jag Gross DO Primary Care Provider CLIFF HITCHCOCK Attending Unavailable LI KAHN Attending Unavailable JR. MAYNARD GEORGE C Attending Unavaila WOO Bo Attending Unavailable WOO ADAMS Attending Unavailable WOO ADAMS Attending Unavailable CLIFF HITCHCOCK Attending Unavailable WOO ADAMS Attending Unavailable WOO ADAMS Attending Unavailable CLIFF HITCHCOCK Attending Unavailable WOO ADAMS Attending Unavailable JACQUELINE LUJAN Attending Unavailable WOO ADAMS Attending Unavailable CLIFF HITCHCOCK Attending Unavailable Allergies Allergy Classification Reported Allergen(s) Allergy Type Date of Onset Reaction(s) Facility (1 source) Levamisole Drug Allergy 5 [facility] (18 sources) Erythromycin Drug Allergy 4 Rash [facility] (14 sources) Promethazine Drug Allergy 4 Other [facility] (17 sources) Phenergan Plain Propensity to adverse reactions to drug 4 Abnormal Behavior [facility] Medications Current Medications Medication Drug Class(es) Dates Sig (Normalized) Sig (Original) cariprazine 1.5 mg oral capsule (5 sources) Atypical Antipsychotic Start: 01-03-2024 take 1 capsule by mouth in the morning cariprazine (VRAYLAR) 1.5 mg capsule Take 1 capsule (1.5 mg total) by mouth in the morning. 14 capsule 01/03/2024 Active levothyroxine sodium 0.1 mg oral tablet (20 sources) l-Thyroxine Start: 01-15-2024 take 1 tablet by mouth once daily levothyroxine (SYNTHROID, LEVOTHROID) 100 MCG tablet Indications: Hypothyroidism, unspecified type take 1 tablet by mouth every day 90 tablet 2 01/15/2024 Active Start: 01-14-2023 End: 01-15-2024 take 1 tablet by mouth once daily levothyroxine (SYNTHROID, LEVOTHROID) 100 MCG tablet Indications: Hypothyroidism, unspecified type take 1 tablet by mouth every day 30 tablet 2 10/07/2023 01/15/2024 Discontinued take 1 tablet by ladi th once daily levothyroxine (SYNTHROID) 75 MCG tablet Take 1 [...] Nausea or Vomiting 15 tablet 02/26/2024 Active triamcinolone acetonide 0.25 mg/ml topical cream (1 source) Corticosteroid Start: 05-25-2024 triamcinolone (KENALOG) 0.025 % cream Apply 1 Application topically in the morning and 1 Application before bedtime. 30 g 05/25/2024 Active venlafaxine 75 mg oral tablet (20 sources) Serotonin and Norepinephrine Reuptake Inhibitor Start: 01-14-2023 End: 03-31-2024 take 1 tablet by mouth once daily venlafaxine (EFFEXOR) 75 mg tablet Indications: Major depressive disorder with single episode, in full remission ([facility]) TAKE 1 TABLET BY MOUTH EVERY DAY 90 tablet 2 03/31/2024 Active Venlafaxine HCl (EFFEXOR XR PO) Take by mouth Active Completed/Discontinued Medications Medication Drug Class(es) Dates Sig (Normalized) Sig (Original) acetaminophen 325 mg oral tablet (9 sources) End: 01-03-2024 take 2 tablets by mouth every six hours as needed for pain acetaminophen (TYLENOL) 325 mg tablet Take 2 tablets (650 mg total) by mouth every 6 (six) hours as needed for pain. 01/03/2024 Discontinued (Therapy completed) ibuprofen 600 mg oral tablet (15 sources) Nonsteroidal Anti-inflammatory Drug Start: 02-26-2024 End: [...] HOURS NEEDED FOR PAIN 90 tablet 06/16/2023 01/03/2024 Discontinued (Therapy completed) methylPREDNISolone (10 sources) Corticosteroid Start: 01-04-2024 End: [...] Translations: [Pelvic and perineal pain] 05-08-2024 Episodic Allergic reactions (1 source) Eczema; Translations: [Dermatitis, unspecified] 05-25-2024 Episodic Immunizations and screening for infectious disease (3 sources) Exposure to communicable disease; Translations: [Encounter for observation for suspected exposure to other biological agents ruled out] Onset: 02-12-2020 Episodic Menopausal disorders (2 sources) Postmenopausal bleeding; Translations: [Postmenopausal bleeding] 04-12-2024 Chronic Menstrual disorders (2 sources) Menorrhagia; Translations: [Excessive and frequent menstruation with regular cycle] 05-08-2024 Chronic Mood disorders (20 sources) Single episode of major depression in full remission; Translations: [Major depressive disorder, single episode, in full remission] Onset: 12-29-2022 03-31-2024 Chronic Other aftercare (2 sources) Postoperative visit; Translations: [Encounter for other specified surgical aftercare] 12-15-2023 Episodic Other connective tissue disease (2 sources) Pain of left hand; Translations: [Pain in left hand] 01-04-2024 Episodic Other diseases of kidney and ureters (1 source) Abnormal renal function; Translations: [Disorder of kidney and ureter, unspecified] 05-25-2024 Episodic Other female genital disorders (1 source) Pain in female genitalia on intercourse; Translations: [Unspecified dyspareunia] 05-08-2024 Chronic Other nervous system disorders (3 sources) Bilateral carpal tunnel syndrome; Translations: [Carpal tunnel syndrome, bilateral upper limbs] 08-18-2023 Chronic Other nutritional; endocrine; and metabolic disorders (20 sources) Overweight; Translations: [Overweight] Onset: 12-29-2022 12-29-2022 Episodic Residual codes; unclassified (1 source) Asymptomatic menopausal state; Translations: [ASYMPTOMATIC MENOPAUSAL STATE] Onset: 01-15-2022 Episodic Substance-related disorders (18 sources) Nicotine dependence, cigarettes, uncomplicated; Translations: [Cigarette smoker ] Onset: 09-02-2021 12-29-2022 Chronic Thyroid disorders (20 sources) Hypothyroidism; Translations: [Hypothyroidism, unspecified] Onset: 12-29-2022 12-29-2022 Chronic Viral infection (1 source) Disease caused by 2019-nCoV; Translations: [COVID-19] 02-26-2024 Episodic Viral infection (1 source) COVID-19; Translations: [COVID-19] Onset: 02-26-2024 Past or Other Problems Problem Classification Problem Date Documented Da te Episodic/Chronic E Codes: Natural/environment (1 source) Bitten by cat, initial encounter; Translations: [BITTEN BY CAT INITIAL ENCOUNTER] Onset: 09-02-2021 Episodic Mood disorders (17 sources) Mood disorders Onset: 07-25-2023 Resolved: 01-03-2024 01-03-2024 Open wounds of extremities (1 source) Open bite of right hand, initial encounter; Translations: [OPEN BITE RIGHT HAND INITIAL ENC] Onset: 09-02-2021 Episodic Other aftercare (1 source) Other mcfp (current) drug therapy; Translations: [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] Onset: 09-02-2021 Episodic Other connective tissue disease (4 sources) Pain in right hand; Translations: [PAIN IN RIGHT HAND] Onset: 08-30-2021 Episodic Other nervous system disorders (1 source) Pain in limb - multiple; Translations: [Paresthesia of skin] 07-25-2023 Episodic Other nutritional; endocrine; and metabolic disorders (1 source) Body mass index 25-29 - overweight; Translations: [Overweight] 05-16-2023 Episodic Other screening for suspected conditions (not mental disorders or infectious disease) (9 sources) Encounter for screening mammogram for malignant neoplasm of breast; Translations: [Encounter for screening for malignant neoplasm of cervix] Onset: 12-16-2021 Episodic Skin and subcutaneous tissue infections (1 source) Cellulitis of right upper limb; Translations: [CELLULITIS OF RIGHT UPPER LIMB] Onset: 09-02-2021 Episodic Results Test Name Value Interpretation Reference Range Facility POCT urinalysis dipstick on yon 05-25-2024 Appearance (U) cloudy [facility] External Poct Urine Bilirubin Negative [facility] External Poct Urine Blood Negative [facility] External Poct Urine Color yellow [facility] External Poct Urine Glucose Negative [facility] External Poct Urine Ketones Negative [facility] External Poct Urine Leukocyte Esterase Negative [facility] External Poct Urine Nitrite Negative [facility] External Poct Urine Ph 6.5 [facility] External Poct Urine Protein Negative [facility] External Poct Urine Specific [facility] System External Poct Urine Urobilinogen 0.2 [facility] ALL CBC WITH AUTO DIFFon BASOPHILS ABSOLUTE AUTO 0.1 [facility] Healthcare Basophils/100 WBC (Bld) 1.7 % 0.2 - 2.0 % [facility] Eosinophils/100 WBC (Bld) 1.5 % 0.9 - 7.0 % [facility] Erythrocyte distribution width (RBC) [Ratio] 16.3 % High 11.0 - 15.0 % [facility] Hematocrit (Bld) [Volume fraction] 33.4 % Low 36.0 - 48.0 % [facility] e Hemoglobin (Bld) [Mass/Vol] 10 g/dL Low 12.0 - 16.0 g/dL [facility] IMMATURE GRANULOCYTES ABS AUTO 0.01 [facility] Immature granulocytes/100 WBC (Bld) 0.2 % 0.0 - 0.5 % [facility] Interpretation and review of laboratory results Abnormal [facility] re LYMPHOCYTES ABSOLUTE AUTO 1.5 [facility] Lymphocytes/100 WBC (Bld) 25.4 % 20.5 - 60.0 % [facility] MCH (RBC) [Entitic mass] 22 pg Low 26.7 - 34.0 pg [facility] MCHC (RBC) [Mass/Vol] 29.9 g/dL 29.9 - 35.2 g/dL [facility] MCV (RBC) [Entitic vol] 73.6 fL Low 81.0 - 99.0 fL [facility] MONOCYTES ABSOLUTE AUTO 0.5 [facility] Monocytes/100 WBC (Bld) 9.3 % 1.7 - 12.0 % [facility] NEUTROPHILS ABSOLUTE AUTO 3.6 [facility] Neutrophils/100 WBC (Bld) 61.9 % 43.0 - 75.0 % [facility] Platelet mean volume (Bld) [Entitic vol] 9.1 fL Low 9.5 - 13.5 fL [facility] EO # 0.1 [facility] PLT 328 [facility] RBC 4.54 [facility] WBC 5.8 [facility] COVID-19, Rapidon 02-26-2024 Interpretation and review of laboratory results Abnormal [facility] SARS-CoV-2 (COVID-19) RdRp gene ANALIA+probe Ql (Resp) Detected Abnormal Not Detected [facility] Comment on above: Rapid NAAT: The specimen [...] appropriate Health Department Specimen Description .NASOPHARYNGEAL SWAB [facility] Flu A/B Ag Detectionon 02-25 Flu A Ag Detection Negative Normal NEG [facility] Comment on above: Result Comment: for Influenza A Antigen Performed By: #### F LUABA #### [facility] [address] [place] [address] [place] [address] Graphics Software Engineer: Leander Arredondo MD Flu B Ag Detection Negative Normal NEG [facility] Comment on above: Result Comment: for Influenza B Antigen. Performed By: #### F LUABA #### [facility] [address] [place] [address] Graphics Software Engineer: Leander Arredondo MD Portable XR Chest AP single viewon 02-26-2024 1. No acute abnormality. [facility] EXAMINATION: ONE XRAY VIEW OF THE CHEST 02/26/2024 9:48 am COMPARISON: None available. HISTORY: ORDERING SYSTEM PROVIDED HISTORY: cough, congestion r/o pna TECHNOLOGIST PROVIDED HISTORY: cough, congestion r/o pna FINDINGS: The lungs are clear. The cardiac silhouette is within normal limits. There is no pneumothorax or pleural effusion. [facility] Joey Mohan MD - 02/26/2024 EXAMINATION: ONE XRAY VIEW OF THE CHEST 02/26/2024 9:48 am COMPARISON: None available. HISTORY: ORDERING SYSTEM PROVIDED HISTORY: cough, congestion r/o pna TECHNOLOGIST PROVIDED HISTORY: cough, congestion r/o pna FINDINGS: The lungs are clear. The cardiac silhouette is within normal limits. There is no pneumothorax or pleural effusion. IMPRESSION: 1. No acute abnormality. [facility] Radiology Study observation (narrative) [facility] Portable XR Chest AP single viewOrdered By: Joey Mohan on 02-26-2024 [facility] Work Phone: Rapid influenza A/B antigens on 02-26-2024 FLUAV Ag Ql (Unsp spec) Negative NEGATIVE [facility] Comment on above: for Influenza A Anti gen FLUBV Ag Ql (Unsp spec) Negative NEGATIVE [facility] Comment on above: for Influenza B Anti gen. [facility] [id number] 02-26-2024 SARS-CoV-2 (COVID-19) RNA ANALIA+probe Ql (Unsp spec) Detected Abnormal [facility] Comment on above: Result Comment: Rapid [...] Department Performed By: #### C OVRB #### [facility] [address] [place] [address] Graphics Software Engineer: Leander Arredondo MD XR CHEST PORTABLEon 02-26-20 XR CHEST PORTABLE EXAMINATION: ONE XRAY VIEW OF THE CHEST 02/26/2024 9:48 am COMPARISON: None available. HISTORY: ORDERING SYSTEM PROVIDED HISTORY: cough, congestion r/o pna TECHNOLOGIST PROVIDED HISTORY: cough, congestion r/o pna FINDINGS: The lungs are clear. The cardiac silhouette is within normal limits. There is no pneumothorax or pleural effusion. IMPRESSION: 1. No acute abnormality. Interpreted by: Joey Mohan MD Signed by: Joey Mohan MD 02/26/24 Final result Normal [facility] Comprehensive metabolic pane stanley 01-03-2024 Albumin [Mass/Vol] 4.5 g/dL 3.2 - 5.3 g/dL [facility] ALP [Catalytic activity/Vol] 70 U/L 39 - 130 U/L [facility] ALT No additional P-5'-P [Catalytic activity/Vol] 14 U/L 0 - 31 U/L [facility] Anion gap [Moles/Vol] 7 mmol/L 5 - 15 mmol/L [facility] AST [Catalytic activity/Vol] 20 U/L 0 - 41 U/L [facility] Bilirubin [Mass/Vol] 0.3 mg/dL 0.3 - 1.2 mg/dL [facility] Calcium [Mass/Vol] 9.9 mg/dL 8.5 - 10. 5 mg/dL [facility] Chloride [Moles/Vol] 103 mmol/L 98 - 109 mmol/L [facility] CO2 [Moles/Vol] 30 mmol/L 22 - 32 mmol/L [facility] Creatinine [Mass/Vol] 0.98 mg/dL 0.40 - 1.00 mg/dL [facility] Comment on above: METHOD TRACEABLE TO [facility] STANDARD eGFR (CKD-EPI)non-race dependent 69 - PINF [facility] Comment on above: Reported eGFR is based on the CKD-EPI 2020 equation that does not use a race coefficient. Glucose [Mass/Vol] 83 mg/dL 65 - 99 mg/dL [facility] Potassium [Moles/Vol] 3.9 mmol/L 3.5 - 5.0 mmol/L [facility] Protein [Mass/Vol] 7.6 g/dL 6.0 - 8.0 g/dL [facility] Sodium [Moles/Vol] 140 mmol/L 134 - 146 mmol/L [facility] Urea nitrogen [Mass/Vol] 23 mg/dL 5 - 23 mg/dL [facility] Lipid 1996 panelon Cholesterol [Mass/Vol] 213 mg/dL High 150 - 200 mg/dL [facility] Cholesterol in HDL [Mass/Vol] 71 mg/dL 39 - PINF mg/dL [facility] Comment on above: HDL <40 mg/dL - High Risk HDL > or = 40mg/dL- Desirable HDL >60 mg/dL - Negative Risk Cholesterol in LDL [Mass/Vol] 128 mg/dL NINF - 130 mg/dL [facility] Comment on above: LDL <100 mg/dL - Desirable LDL >160 mg/dL - High Risk Cholesterol in VLDL [Mass/Vol] 14 mg/dL 0 - 30 mg/dL [facility] Cholesterol.total/C holesterol in HDL [Mass ratio] 3.0 {ratio} 1.0 - 5.0 [facility] Interpretation and review of laboratory results Abnormal [facility] Triglyceride [Mass/Vol] 69 mg/dL 27 - 150 mg/dL [facility] No Panel Informationon 01-02 [facility] Thyroid profile includes TSH FT4on 01-03-2024 Free T4 [Mass/Vol] 0.90 ng/dL 0.61 - 1. 60 ng/dL [facility] TSH Qn 2.19 m[IU]/L [facility][note 2] ALL CBC WITH AUTO DIFFon BASOPHILS ABSOLUTE AUTO 0.1 [facility] Basophils/100 WBC (Bld) 1.7 % 0.2 - 2.0 % [facility] Eosinophils/100 WBC (Bld) 2.2 % 0.9 - 7.0 % [facility] Erythrocyte distribution width (RBC) [Ratio] 13.8 % 11.0 - 15.0 % [facility] Hematocrit (Bld) [Volume fraction] 35.4 % Low 36.0 - 48.0 % [facility] e Hemoglobin (Bld) [Mass/Vol] 11.1 g/dL Low 12.0 - 16.0 g/dL [facility] IMMATURE GRANULOCYTES ABS AUTO 0.01 [facility] Immature granulocytes/100 WBC (Bld) 0.2 % 0.0 - 0.5 % [facility] Interpretation and review of laboratory results Abnormal [facility] re LYMPHOCYTES ABSOLUTE AUTO 2.0 [facility] Lymphocytes/100 WBC (Bld) 36.8 % 20.5 - 60.0 % [facility] MCH (RBC) [Entitic mass] 24.8 pg Low 26.7 - 34.0 pg [facility] MCHC (RBC) [Mass/Vol] 31.4 g/dL 29.9 - 35.2 g/dL [facility] MCV (RBC) [Entitic vol] 79.0 fL Low 81.0 - 99.0 fL [facility] MONOCYTES ABSOLUTE AUTO 0.4 [facility] Monocytes/100 WBC (Bld) 6.9 % 1.7 - 12.0 % [facility] NEUTROPHILS ABSOLUTE AUTO 2.8 [facility] Neutrophils/100 WBC (Bld) 52.2 % 43.0 - 75.0 % [facility] Platelet mean volume (Bld) [Entitic vol] 9.2 fL Low 9.5 - 13.5 fL [facility] TBH EO # 0.1 [facility] TBH PLT 328 [facility] RBC 4.48 [facility] WBC 5.4 [facility] MG MAMM SCREEN 3D LEVAR CADon 01-08-2022 MG MAMM SCREEN 3D LEVAR CAD Patient: MAGY FARIAS Exam Date: 01/08/2022 : 1970 Gender:F Ordering : DR KENROY STEVENSON . Admission #: [id number] Family : Order #: [id number] CLICK HERE TO VIEW EXAM RADIOLOGY REPORT PROCEDURE: MAMMOGRAM SCREENING 3D BILATERAL CAD COMPARISON: MG MAMM SCREEN 3D LEVAR CAD, 12/16/2020. INDICATIONS: Screening mammography Calculator Name NCI Breast Cancer Risk Assessment Tool 5 Year Breast Cancer Risk 0.70% Lifetime Breast Cancer Risk 6.50% Personal Breast Cancer No Personal Ovarian Cancer No Treatments None Family Cancers None LOCATION: [facility] BREAST COMPOSITION: Extremely dense, which lowers [...] Olmedo MD on 01/08/2022 at 10:28 [facility] XR DEXA BONE DENSITYon 01-08 XR [...] authenticated by: SHAINA WINKLER Date: 2022-01-08 10:20 [facility] PAP ACOG PANEL 2: 30 to 65on 12-22-2021 . . [facility] Comment on above: Result Comment: Perf ormed at: WB Performed By: #### [id number] #### [facility] [address] [place] [address] Dr. Kyleigh Mittal Age Gdln ACOG Testing 30-65 [facility] Comment on above: Performed By: #### [id number] #### [facility] [address] [address] [address] Kyleigh Mittal DIAGNOSIS: Comment [facility] Comment on above: Result Comment: NEGA TIVE FOR INTRAEPITHELIAL LESION OR MALIGNANCY. Performed at: WB Performed By: #### [id number] #### [facility] [address] [address] [address] Kyleigh Mittal HPV Aptima Positive Abnormal [facility] Comment on above: Result Comment: This nucleic acid amplification test detects fourteen high-risk HPV types (16,18,31,33,35,39,45,51,52,56,58,59,66,68) without differentiation. Performed at: =G Performed By: #### [id number] #### [facility] [address] [address] [address] Kyleigh Mittal HPV Genotype 16 Negative Normal Negative [facility] Comment on above: Result Comment: Perf ormed at: =G Performed By: #### [id number] #### [facility] [address] [address] [address] Kyleigh Mittal HPV Genotype 18,45 Negative Normal Negative [facility] Comment on above: Result Comment: Perf ormed at: =G Performed By: #### [id number] #### [facility] [address] [address] [address] Kyleigh Mittal Methodology: Comment [facility] Comment on above: Result Comment: This liquid based ThinPrep(R) pap test was screened with the use of an image guided system. Performed at: WB Performed By: #### [id number] #### [facility] [address] [address] [address] Kyleigh Mittal Note: Comment [facility] Comment on above: Result Comment: The Pap smear is a screening test designed to aid in the detection of premalignant and malignant conditions of the uterine cervix. It is not a diagnostic procedure and should not be used as the sole means of detecting cervical cancer. Both false-positive and false-negative reports do occur. . Performed at: WB Performed By: #### [id number] #### [facility] [address] [address] [address] Kyleigh Mittal Performed by: Comment Normal [facility] Comment on above: Result Comment: Sharon Jalloh, Margin Analyst (ASCP) Performed at: WB Performed By: #### [id number] #### [facility] [address] [place] [address] Dr. Kyleigh Mittal Specimen adequacy: Comment Normal [facility] Comment on above: Result Comment: Sati sfactory for evaluation. Endocervical and/or squamous metaplastic cells (endocervical component) are present. Performed at: WB Performed By: #### [id number] #### [facility] [address] [place] [address] Dr. Kyleigh Mittal CBC AUTO DIFFon 08-31-2021 BASO # 0.1 103/ul Normal 0.0-0.1 [facility] Comment on above: Performed By: #### C BC #### [facility] [address] [place] [address] Dr. Kyleigh Mittal Basophils/100 WBC (Bld) 0.9 % Normal 0.2-2.0 [facility] Comment on above: Performed By: #### C BC #### [facility] [address] [place] [address] Dr. Kyleigh Mittal EO # 0.2 103/ul Normal 0.0-0.7 [facility] Comment on above: Performed By: #### C BC #### [facility] [address] [place] [address] Dr. Kyleigh Mittal Eosinophils/100 WBC (Bld) 2.6 % Normal 0.9-7.0 [facility] Comment on above: Performed By: #### C BC #### [facility] [address] [place] [address] Dr. Kyleigh Mittal Erythrocyte distribution width (RBC) [Ratio] 13.9 % Normal 11.0-15.0 [facility] Comment on above: Performed By: #### C BC #### [facility] [address] [place] [address] Dr. Kyleigh Mtital Hematocrit (Bld) [Volume fraction] 38.1 % Normal 36.0-48.0 [facility] Comment on above: Performed By: #### C BC #### [facility] [address] [place] [address] Dr. Kyleigh Mittal Hemoglobin (Bld) [Mass/Vol] 11.7 g/dL Critically low 12.0-16.0 [facility] Comment on above: Performed By: #### C BC #### [facility] [address] [address] [address] Kyleigh Mittal IG # 0.02 10e3/ul Normal 0.00-0.03 [facility] Comment on above: Performed By: #### C BC #### [facility] [address] [address] [address] Kyleigh Mittal IG % 0.3 % Normal 0.0-0.5 [facility] Comment on above: Performed By: #### C BC #### [facility] [address] [place] [address] Dr. Kyleigh Mittal LYMPH # 2.4 103/ul Normal 1.2-3.8 [facility] Comment on above: Performed By: #### C BC #### [facility] [address] [place] [address] Dr. Kyleigh Mittal Lymphocytes/100 WBC (Bld) 29.6 % Normal 20.5-60.0 [facility] Comment on above: Performed By: #### C BC #### [facility] [address] [place] [address] Dr. Kyleigh Mittal MANUAL DIFF REQ NO Normal [facility] Comment on above: Performed By: #### C BC #### [facility] [address] [place] [address] Dr. Kyleigh Mittal MCH (RBC) [Entitic mass] 25.5 pg Critically low 26.7-34.0 [facility] Comment on above: Performed By: #### C BC #### [facility] [address] [place] [address] Dr. Kyleigh Mittal MCHC (RBC) [Mass/Vol] 30.7 g/dL Normal 29.9-35.2 [facility] Comment on above: Performed By: #### C BC #### [facility] [address] [place] [address] Dr. Kyleigh Mittal MCV (RBC) [Entitic vol] 83.2 fL Normal 81.0-99.0 [facility] Comment on above: Performed By: #### C BC #### [facility] [address] [place] [address] Dr. Kyleigh Mittal MONO # 0.8 103/ul Normal 0.3-0.8 [facility] Comment on above: Performed By: #### C BC #### [facility] [address] [place] [address] Dr. Kyleigh Mittal Monocytes/100 WBC (Bld) 9.7 % Normal 1.7-12.0 [facility] Comment on above: Performed By: #### C BC #### [facility] [address] [place] [address] Dr. Kyleigh Mittal NEUT # 4.5 103/ul Normal 1.4-6.5 [facility] Comment on above: Performed By: #### C BC #### [facility] [address] [place] [address] Dr. Kyleigh Mittal Neutrophils/100 WBC (Bld) 56.9 % Normal 43.0-75.0 [facility] Comment on above: Performed By: #### C BC #### [facility] [address] [place] [address] Dr. Kyleigh Mittal Platelet mean volume (Bld) [Entitic vol] 9.7 fL Normal 9.5-13.5 [facility] Comment on above: Performed By: #### C BC #### [facility] [address] [place] [address] Dr. Kyleigh Mittal PLT 306 103/ul Normal 150-450 [facility] Comment on above: Performed By: #### C BC #### [facility] [address] [place] [address] Dr. Kyleigh Mittal RBC 4.58 106/ul Normal 4.20-5.40 [facility] Comment on above: Performed By: #### C BC #### [facility] [address] [place] [address] Dr. Kyleigh Mittal WBC 8.0 103/ul Normal 4.0-11.0 [facility] Comment on above: Performed By: #### C BC #### [facility] [address] [place] [address] Dr. Kyleigh Mittal CULTURE BLOODon 08-31-2021 Microscopic examination of blood, culture Culture Observations: NO GROWTH AT 5 DAYS. Isolate 1 BC_BA_NA [facility] Comment on above: Performed By: #### B [id number] #### [facility] [address] [place] [address] [address] Kyleigh Mittal Microscopic examination of blood, culture Culture Observations: NO GROWTH AT 5 DAYS. Isolate 1 BC_BA_NA Normal [facility] Comment on above: Performed By: #### B [id number] #### [facility] [address] [place], [place] [address] Dr. Kyleigh Mittal XR HAND RT MIN [...] by: Cosmo ALVARADO Date: 2021-08-31 00:59 [facility] Vital Signs Date Time Vital Sign Value Performing Clinician Facility 05-25-2024 11:07-0500 Body height 162.6 cm [employer] [facility] 05-25-2024 11:07-0500 Body mass index (BMI) [Ratio] 26.06 kg/m2 Portfolia DO Work Phone[facility] 05-25-2024 11:07-0500 Body temperature 98.71 [degF] Portfolia DO Work Phone: [facility] 05-25-2024 11:07-0500 Body weight 68.86 kg Portfolia DO Work Phone: [facility] 05-25-2024 11:07-0500 Diastolic blood pressure 80 mm[Hg] Jag Furlong DO Work Phone: [facility] [employer] [facility] 05-25-2024 11:07-0500 Heart rate 94 /min Jag Furlong DO Work Phone: [facility] 05-25-2024 11:07-0500 Respiratory rate 18 /min Jag Furlong DO Work Phone: [facility] 05-25-2024 11:07-0500 SaO2% (BldA) [Mass fraction] 99 % Jag Furlong DO Work Phone: [facility] [employer] [facility] 05-25-2024 11:07-0500 Systolic blood pressure 120 mm[Hg] Jag Furlong DO Work Phone: [facility] 05-08-2024 08:44-0500 Body mass index (BMI) [Ratio] 26.11 kg/m2 Cliff Naldo DO Work Phone: [facility] 05-08-2024 08:44-0500 Body weight 69 kg Cliff Naldo DO Work Phone: [facility] 05-08-2024 08:44-0500 Diastolic blood pressure 72 mm[Hg] Cliff Naldo DO Work Phone: [facility] 05-08-2024 08:44-0500 Systolic blood pressure 108 mm[Hg] Cliff Naldo DO Work Phone: [facility] 04-12-2024 11:44-0500 Body mass index (BMI) [Ratio] 26.26 kg/m2 Cliff Naldo DO Work Phone: [facility] 04-12-2024 11:44-0500 Body weight 69.4 kg Cliff Naldo DO Work Phone: [facility] 04-12-2024 11:44-0500 Diastolic blood pressure 76 mm[Hg] Cliff Naldo DO Work Phone: [facility] 04-12-2024 11:44-0500 Systolic blood pressure 120 mm[Hg] Cliff Hitchcock DO Work Phone: [facility] 02-26-2024 09:31-0500 Body temperature 98.4 [degF] Scooter Mahoney MD Work Phone: [facility] [employer] 02-26-2024 09:31-0500 Body weight 69.4 kg Scooter Mahoney MD Work Phone: [facility] [employer] 02-26-2024 09:31-0500 Diastolic blood pressure 66 mm[Hg] Scooter Mahoney MD Work Phone: [employer] 02-26-2024 09:31-0500 Heart rate 95 /min Scooter Mahoney MD [facility] 02-26-2024 09:31-0500 Respiratory rate 16 /min Scooter Mahoney MD Work Phone: [facility] [employer] 02-26-2024 09:31-0500 SaO2% (BldA) [Mass fraction] 96 % Scooter Mahoney MD Work Phone: [facility] [employer] 02-26-2024 09:31-0500 Systolic blood pressure 96 mm[Hg] Scooter Mahoney MD Work Phone: [facility] [employer] 01-03-2024 14:12-0400 Body height 162.6 cm Portfolia DO Work Phone: [facility] [employer] 01-03-2024 14:12-0400 Body mass index (BMI) [Ratio] 26.06 kg/m2 Portfolia DO Work Phone: [facility] 01-03-2024 14:12-0400 Body temperature 98.01 [degF] JagBapul DO Work Phone: [facility] [employer] [facility] 01-03-2024 14:12-0400 Body weight 68.86 kg Portfolia DO Work Phone: [facility] 01-03-2024 14:12-0400 Diastolic blood pressure 68 mm[Hg] Jag Furlong DO Work Phone: [facility] 01-03-2024 14:12-0400 Heart rate 84 /min Jag Furlong DO Work Phone: [facility] 01-03-2024 14:12-0400 SaO2% (BldA) [Mass fraction] 99 % Jag Furlong DO Work Phone: [facility] 01-03-2024 14:12-0400 Systolic blood pressure 110 mm[Hg] Jag Furlong DO Work Phone: [facility] 12-15-2023 13:54-0400 Body height 162.6 cm Jacqueline NICHOLS Work Phone: [facility] 12-15-2023 13:54-0400 Body mass index (BMI) [Ratio] 25.75 kg/m2 Jacqueline Gordon PA Work Phone: [facility] 12-15-2023 13:54-0400 Body weight 68.04 kg Jacqueline Gordon PA Work Phone: [facility] 12-15-2023 13:54-0400 Diastolic blood pressure 82 mm[Hg] Jacqueline Gordon PA Work Phone: [facility] 12-15-2023 13:54-0400 Systolic blood pressure 130 mm[Hg] Jacqueline Lujan PA Work Phone: [facility] 07-25-2023 15:31-0400 Diastolic blood pressure 60 mm[Hg] Jag Furlong DO Work Phone: [facility] [employer] [facility] 07-25-2023 15:31-0400 Systolic blood pressure 122 mm[Hg] Jag Furlong DO Work Phone: [facility] 07-25-2023 15:27-0400 Body height 162.6 cm Jag Furlong DO Work Phone: [facility] 07-25-2023 15:27-0400 Body mass index (BMI) [Ratio] 25.03 kg/m2 Jag Furlong DO Work Phone: [facility] [employer] 07-25-2023 15:27-0400 Body temperature 97.59 [degF] Jag Furlong DO Work Phone: [facility] 07-25-2023 15:27-0400 Body weight 66.13 kg Jag Furlong DO Work Phone: [facility] 07-25-2023 15:27-0400 Heart rate 98 /min Jga Furlong DO Work Phone: [facility] [employer] 07-25-2023 15:27-0400 SaO2% (BldA) [Mass fraction] 98 % Jag Furlong DO Work Phone: [facility] [employer] 05-16-2023 11:01-0500 Body height 162.6 cm Jag Furlong DO Work Phone: [facility] [employer] 05-16-2023 11:01-0500 Body mass index (BMI) [Ratio] 25.39 kg/m2 Jag Furlong DO Work Phone: [facility] [employer] 05-16-2023 11:01-0500 Body temperature 97.5 [degF] Jag Furlong DO Work Phone: [facility] [employer] 05-16-2023 11:01-0500 Body weight 67.09 kg Jag Furlong DO Work Phone: [facility] [employer] 05-16-2023 11:01-0500 Diastolic blood pressure 70 mm[Hg] Jag Furlong DO Work Phone: [facility] [employer] 05-16-2023 11:01-0500 Heart rate 102 /min Jag Furlong DO Work Phone: [facility] 05-16-2023 11:01-0500 SaO2% (BldA) [Mass fraction] 98 % Jag Gross DO Work Phone: [employer] 05-16-2023 11:01-0500 Systolic blood pressure 130 mm[Hg] Jag Gross DO Work Phone: [facility] [employer] Encounters Encounter Date Encounter Type Care Provider Facility Start: 05-25-2024 End: 05-25-2024 Office outpatient visit 25 minutes aJg Gross DO Work Phone: [facility] Comment on above: Pre-op examination ( Primary Dx); Abnormal renal function; Eczema, unspecified type; Overweight Start: 05-25-2024 End: 05-25-2024 Preprocedural examination done Jag Gross DO Work Phone: [facility] [employer] Work Phone: Start: 05-18-2024 End: 05-18-2024 Clinisync Result Encounter Cliff Naldo DO Work Phone: [facility] External Department Unsolicited Start: 05-18-2024 End: 05-18-2024 Clinisync Result Encounter Cliff Naldo DO Work Phone: [facility] External Department Unsolicited Start: 05-08-2024 End: 05-08-2024 Bamboo flowsheet Cliff Naldo DO Work Phone: [facility] Start: 05-08-2024 End: 05-08-2024 Bamboo flowsheet Cliff Naldo DO Work Phone: [facility] Start: 05-08-2024 End: 05-08-2024 Office outpatient visit 15 minutes Cliff Naldo DO Work Phone: [facility] Comment on above: Pre-op examination; Menorrhagia with regular cycle; Pelvic pain; Dyspareunia in female; Dysmenorrhea Start: 05-08-2024 End: 05-08-2024 Preprocedural examination done Cliff Naldo DO Work Phone: [facility] Start: 05-08-2024 End: 05-08-2024 ambulatory CLIFF NALDO Not Available Start: 04-12-2024 End: 04-12-2024 Bamboo flowsheet Cliff Naldo DO Work Phone: [facility] Start: 04-12-2024 End: 04-12-2024 Bamboo flowsheet Cliff Naldo DO Work Phone: [facility] Start: 04-12-2024 End: 04-12-2024 Office outpatient visit 15 minutes Cliff Naldo DO Work Phone: [facility] Comment on above: Post-menopausal blee ding Start: 04-12-2024 End: 04-12-2024 ambulatory CLIFF NALDO Not Available Start: 03-31-2024 End: 03-31-2024 Refill Jag G Furlong DO Work Phone: [facility] Comment on above: Major depressive dis order with single episode, in full remission ([facility] Start: 02-26-2024 End: 02-26-2024 Emergency department patient visit Scooter Mahoney MD Work Phone: [facility] ED Comment on above: COVID-19 (Primary Dx ) Start: 01-14-2024 End: 01-15-2024 Refill Jag Kristi Yijairo DO Work Phone: [facility] Comment on above: Hypothyroidism, unsp ecified type Start: 01-04-2024 End: 01-04-2024 Postop follow up visit related to original px Woo NICHOLS Work Phone: [facility] Comment on above: S/P carpal tunnel re lease (Primary Dx); Left hand pain Start: 01-04-2024 End: 01-04-2024 ambulatory WOO ADAMS Not Available Start: 01-04-2024 End: 01-04-2024 Bamboo flowsheet Woo NICHOLS Work Phone: [facility] Start: 01-04-2024 End: 01-04-2024 Bamboo flowsheet Woo NICHOLS Work Phone: [facility] Start: 01-04-2024 End: 01-04-2024 Telephone encounter Riana Shen CMA [facility] Start: 01-03-2024 End: 01-03-2024 Patient encounter status Jag Gross DO Work Phone: [facility] [employer] Work Phone: Start: 01-03-2024 End: 01-03-2024 Periodic preventive med est patient 40-64yrs Jag Gross DO Work Phone: [facility] Comment on above: Well adult health ch renee (Primary Dx); Acquired hypothyroidism; Overweight; Major depressive disorder with single episode, in partial remission ([facility]) Start: 01-01-2024 End: 01-01-2024 Refill Jag Gross DO Work Phone: [facility] Comment on above: Major depressive dis order with single episode, in full remission ([facility]) Start: 12-15-2023 End: 12-15-2023 Bamboo flowsheet Jacqueline NICHOLS Work Phone: [facility] Start: 12-15-2023 End: 12-15-2023 Bamboo flowsheet Jacqueline NICHOLS Work Phone: [facility] Start: 12-15-2023 End: 12-15-2023 Postop follow up visit related to original px Jacqueline NICHOLS Work Phone: [facility] Comment on above: Postoperative visit (Primary Dx) Start: 12-15-2023 End: 12-15-2023 ambulatory JACQUELINE LUJAN Not Available Start: 12-02-2023 End: 12-02-2023 Clinisync Result Encounter Cliff Diazzio DO Work Phone: [facility] External Department Unsolicited Start: 12-02-2023 End: 12-02-2023 Clinisync Result Encounter Cliff Arayao DO Work Phone: [facility] Unsolicited Start: 11-21-2023 End: 11-21-2023 ambulatory WOO ADAMS Not Available Start: 11-10-2023 End: 11-10-2023 ambulatory CLIFF HITCHCOCK Not Available Start: 11-09-2023 End: 11-09-2023 ambulatory WOO ADAMS Not Available Start: 10-28-2023 End: 10-28-2023 ambulatory WOO ADAMS Not Available Start: 10-17-2023 End: 10-18-2023 Telephone encounter [facility] Start: 10-13-2023 End: 10-13-2023 ambulatory CLIFF HITCHCOCK Not Available Start: 10-07-2023 End: 10-07-2023 Refill Jag Gross DO [facility] Comment on above: Major depressive dis order with single episode, in full remission (CMS-HCC); Hypothyroidism, unspecified type Start: 10-04-2023 End: 10-04-2023 ambulatory WOO ADAMS Not Available Start: 09-27-2023 End: 09-27-2023 ambulatory WOO ADAMS Not Available Start: 09-09-2023 End: 09-09-2023 ambulatory WOO ADAMS Not Available Start: 09-08-2023 End: 09-12-2023 Telephone encounter Jag Gross DO [facility] Start: 09-07-2023 End: 09-07-2023 ambulatory YVETTE NIETO Not Available Start: 08-18-2023 End: 08-18-2023 Orders Only Jag Gross DO Work [facility]: [facility] Comment on above: Bilateral carpal asha stacie syndrome (Primary Dx) Start: 08-17-2023 End: 08-18-2023 Telephone encounter Hina Luis C[facility] Start: 08-10-2023 End: 08-10-2023 ambulatory LI KAHN Not Available Start: 07-27-2023 End: 07-28-2023 Telephone encounter Mirna Victoria CMA [facility] Start: 07-25-2023 End: 07-25-2023 Office outpatient visit 15 minutes Jag Gross DO Work Phone: [facility] Comment on above: Paresthesia and pain of both upper extremities (Primary Dx); Overweight Start: 06-13-2023 Refill Jag soni DO Work Phone: [facility] Comment on above: Bilateral carpal asha stacie syndrome Start: 05-20-2023 Orders Only Jag soni DO Work Phone: [facility] Start: 05-19-2023 Telephone encounter Li Jalloh MA [facility] Start: 05-16-2023 End: 05-16-2023 Office outpatient visit 15 minutes Jag Gross DO Work Phone: [facility] Comment [...] consultation with patient Jyoti Dempsey Work Phone: [facility] Work Phone: Procedures Date Procedure Procedure Detail Performing Clinician Start: 05-25-2024 Urnls dip stick/tabl et rgnt non-auto w/o micrscp Jag Ajng DO Work Phone: Start: 05-18-2024 ALL CBC WITH AUTO DIFF Cliff Naldo DO Work Phone: Start: 02-26-2024 Radiologic exam ches t single view Scooter Mahoney MD Work Phone: Start: 02-26-2024 COVID-19, RAPID Scooter Mahoney MD Work Phone: Start: 02-26-2024 Iaadiadoo influenza Hermelindo venkatesh Mahoney MD Work Phone: Start: 01-03-2024 Adult depression screening assessment Jag Furlong DO Work Phone: Start: 12-02-2023 ALL CBC WITH AUTO DIFF Cliff Naldo DO Work Phone: Start: 07-25-2023 Adult depression screening assessment Jag Furlong DO Work Phone: Start: 05-16-2023 Adult depression screening assessment Jag Furlong DO Work Phone: Start: 01-08-2022 Mammography Jag Yi long DO Work Phone: History of decompres jerzy of median nerve S/P carpal tunnel release Woo NICHOLS Work Phone: Plan of Treatment Date Care Activity Detail Author Start: 01-08-2026 Screening for malign ant neoplasm of colon Colon Cancer Screening 3 Year Cologuard [facility] Start: 05-25-2025 Adult BMI Screening Adult BMI Screen ing [facility] Start: 05-25-2025 Tobacco Screening Tobacco Screening [facility] Start: 01-02-2025 Adult BMI Screening Adult BMI Screen ing [facility] Start: 01-02-2025 Depression Screening Depression Scre ening [facility] Start: 01-02-2025 Tobacco Screening Tobacco Screening [facility] Start: 07-24-2024 Adult BMI Screening Adult BMI Screen ing [facility] Start: 07-24-2024 Depression Screening Depression Scre ening [facility] Start: 07-24-2024 Tobacco Screening Tobacco Screening [facility] Start: 06-28-2024 Tobacco Counseling Tobacco Counselin g [facility] Start: 05-16-2024 Adult BMI Screening Adult BMI Screen ing [facility] Start: 05-16-2024 Depression Screening Depression Scre ening [facility] Start: 05-16-2024 Tobacco Screening Tobacco Screening [facility] Start: 05-08-2024 End: 05-08-2024 Patient encounter procedure 05/08/2024 8:30 AM EST Consult [facility] [address] [facility] [place] [phone] Cliff Hitchcock, DO [address] [place] [address] Arrived [facility] Comment on above: Arrived Start: 05-02-2024 End: 05-02-2024 Patient encounter procedure 05/02/2024 2:50 PM EST Consult [facility] [address] [facility] [place] [phone] Cliff Hitchcock, DO [address] [place] [address] [facility] Start: 04-12-2024 End: 04-12-2024 Patient encounter procedure 04/12/2024 11:10 AM EST Office Visit [facility] [address] [place] [phone] Cliff Hitchcock, DO [address] [place] [address] Arrived [facility] Comment on above: Arrived Start: 04-04-2024 Administration of varicella zoster vaccine Zoster (Shingles) Vaccine (1 of 2) [facility] Comment on above: Postponed from 12/09 (Patient Refused) Start: 01-23-2024 End: 01-23-2024 Patient encounter procedure 01/23/2024 1:45 PM EDT Office Visit [facility] [address] Jr. Yvette Maynard, DO [address] [facility] [address] [place] [address] [facility] Start: 01-04-2024 End: 01-04-2024 Patient encounter procedure 01/04/2024 2:45 PM EDT Office Visit [facility] [address] [place] [phone] Woo Adams, PA [address] [place] [address] S/P carpal tunnel release (Primary Dx); Left hand pain [facility] Comment on above: S/P carpal tunnel re lease (Primary Dx); Left hand pain Start: 01-03-2024 End: 01-03-2024 Patient encounter procedure 01/03/2024 2:15 PM EDT Office Visit [facility] [address] [place] [address] Jag Gross, DO [address] [place] [address] [facility] Start: 12-15-2023 End: 12-15-2023 Patient encounter procedure 12/15/2023 2:00 PM EDT Office Visit [facility] [address] [place] [phone] Jacqueline Lujan PA [address] [place] [address] Arrived [facility] Comment on above: Arrived Start: 12-04-2023 Influenza vaccination Influenza Vacc ine [facility] Start: 12-02-2023 End: 12-02-2023 Patient encounter procedure 12/02/2023 9:30 AM EDT Procedure Visit [facility] Cliff Hitchcock, DO [address] [facility] [address] [place], [place] [id number] [facility] Start: 07-03-2023 Influenza vaccination Influenza Vacc ine [facility] Comment on above: Postponed from 12/03 (Patient Refused) Start: 05-16-2023 End: 05-16-2024 DBT Breast - bilateral screening Mammography screening bilateral with CAD Imaging Routine Encounter for screening mammogram for malignant neoplasm of breast Expected: 05/16/2023, Expires: 05/16/2024 [employer] Work Phone: Comment on above: Expected: 05/16/2023 , Expires: 05/16/2024 Start: 01-08-2023 Screening for malign ant neoplasm of breast [facility] Start: 12-09-2021 Administration of varicella zoster vaccine Zoster (Shingles) Vaccine (1 of 2) [facility] Start: 02-19-2020 SARS-CoV-2, [facility] Work Phone: Start: 02-12-[address] up Testing [facility] Work Phone: Start: 12-09-1992 Screening for malign ant neoplasm of cervix Pap Smear [facility] Start: 12-09-1990 DTaP,Tdap and Td Vaccines (1 - Tdap) DTaP,Tdap and Td Vaccines (1 - Tdap) [facility] Start: 12-09-1989 Adult BMI Follow Up Plan Adult BMI Follow Up Plan [facility] End: 05-25-2025 Basic metabolic 2000 panel - Serum or Plasma Basic Metabolic Panel Lab Routine Abnormal renal function 1 Occurrences starting 05/25/2024 until 05/25/2025 [employer] Work Phone: Comment on above: 1 Occurrences starti ng 05/25/2024 until 05/25/2025 End: 07-24-2024 EMG EMG Neurology Routine Paresthesia and pain of both upper extremities 1 Occurrences starting 07/25/2023 until 07/24/2024 [employer] Work Phone: Comment on above: 1 Occurrences starti ng 07/25/2023 until 07/24/2024 Payers Date Payer Category Payer Managed Care Other (unspecified) [employer] [id number] 2022 Private Health Insurance [employer] [id number] 2022 Unknown [id number] 1.13.693.2. [id number] 1971 Unknown [id number] 2.16.840.1.236878.3.579.2. 593 1971 Unknown [id number] 2.16.840.1.006415.3.579.2. 593 1971 Unknown [id number] 2.16.840.1.532562.3.579.2. 593 1971 Unknown [id number] 2.16.840.1.428404.3.579.2. 173 1971 Unknown [id number] 2.16.840.1.614452.3.579.2. 1259 1971 Unknown [id number] 2.16.840.1.091733.3.579.2. 9 1971 Unknown [id number] 2.16.840.1.024699.3.579.2. 1258 1971 Unknown [id number] 2.16.840.1.427181.3.579.2. 1258 1971 Unknown [id number] 2.16.840.1.472242.3.579.2. 1258 1971 Unknown [id number] 2.16.840.1.440551.3.579.2. 1258 1971 Unknown [id number] 2.16.840.1.337762.3.579.2. 1258 1971 Unknown [id number] 2.16.840.1.121363.3.579.2. 1258 1971 Unknown [id number] 2.16.840.1.598607.3.579.2. 1258 1971 Unknown [id number] 2.16.840.1.249290.3.579.2. 1258 1971 Unknown [id number] 2.16.840.1.352699.3.579.2. 1258 1971 Unknown [id number] 2.16.840.1.728925.3.579.2. 1258 1971 Unknown [id number] 2.16.840.1.897274.3.579.2. 1258 1971 Unknown [id number] 2.16.840.1.076476.3.579.2. 9 1959 Unknown [id number] 1959 Unknown [id number] Self-pay [id number] 2.16.840.1.362493.3.140.1. 86579.5.4 Social History Date Type Detail Facility Tobacco smoking status Unknown if ever sm oked [facility] Work Phone: Start: 07-25-2023 End: 09-09-2023 Tobacco smoking status NHIS Ex-smoker [facility] Start: 04-04-2014 End: 06-07-2023 History of tobacco use Current smoker [facility] Start: 04-04-2014 End: 06-07-2023 History of tobacco use Cigarette Smoker [facility] Start: 05-14-2020 End: 10-04-2023 History of Social function [facility] Start: 05-14-2020 End: 10-04-2023 Tobacco use panel [facility] Start: 1970 Sex assigned at Not on file P [facility] Start: 02-26-2024 [facility] Start: 07-25-2023 End: 02-26-2024 Tobacco use and exposure Smokeless tobacco non-user [facility] Start: 02-26-2024 Alcoholic beverage intake Lifetime non-drinker (finding) [facility] How often to you hav e a drink containing alcohol? Never [facility] How many standard drinks containing alcohol do you have on a typical day? Patient does not drink [facility] Start: 01-04-2024 End: 05-25-2024 Alcoholic beverage intake Current drinker of alcohol (finding) [facility] Has the [employer], or [employer] threatened to shut off services in your home in past 12Mo No [facility] Start: 12-29-2022 Alcohol Comment social [facility] Start: 11-05-2014 Sex Female (finding) [facility] Are you now , , , , never or living with a partner? [facility] How often to you hav e a drink containing alcohol? 2-4 times a month [facility] How many standard drinks containing alcohol do you have on a typical day? 3 or 4 [facility] Do you feel stress - tense, restless, nervous, or anxious, or unable to sleep at night because your mind is troubled all the time - these days [OSQ] To some extent [facility] Start: 04-04-2014 [facility] daily [facility] Clinical Notes 05-16-2023 to 05-25-2024 Jag Gross, DO - 05/25/2024 11:00 AM Annia Lei, DRAPERY HEAD FORMER - 05/08/2024 8:30 AM Elaine Owens, DRAPERY HEAD FORMER - 04/12/2024 11:10 AM Santana InstructionsAttachments Note Date & Type Note Facility 05-25-2024 History of Present illness Narrative Subjective Patient ID: Magy Farias is a 53 y.o. female. Magy presents today for a preoperative evaluation. She is going to have a hysterectomy. She had preoperative testing which showed a significant decline in her kidney function tests. She states that she was drinking a lot of monster energy drinks. She stopped drinking those 2 days ago. She walks on a treadmill for 10 minutes 6 days a week. She also lifting weights. She does not have any urinary symptoms such as burning, frequency urgency or blood. She feels fine. She does not have any chest pain or shortness a breath when she walks on the treadmill. The following portions of the patient's history were reviewed and updated as appropriate: allergies, current medications, past family history, past medical history, past social history, past surgical history, problem list, and medication reconciliation was completed including current medication and post discharge medication. Review of Systems Constitutional: Negative. Objective Physical Exam Vitals reviewed. Exam conducted with a drink box mechanic present (Magdaleno Valenzuela MS3). Constitutional: General: She is not in acute distress. Appearance: She is overweight. She is not ill-appearing. HENT: Head: Normocephalic. Cardiovascular: Pulses: Normal pulses. Heart sounds: Normal heart sounds. No murmur heard. Pulmonary: Effort: No respiratory distress. Breath sounds: Normal breath sounds. No wheezing, rhonchi or rales. Abdominal: Palpations: There is no mass. Tenderness: There is no right CVA tenderness or left CVA tenderness. Musculoskeletal: General: No tenderness or deformity. Skin: Findings: Lesion (several flesh-colored plaques on both hands with scale an indistinct borders; no open areas) present. Neurological: Mental Status: She is alert. Psychiatric: Mood and Affect: Mood normal. Behavior: Behavior normal. Thought Content: Thought content normal. Judgment: Judgment normal. Assessment/Plan Magy was seen today for pre op clearance . Diagnoses and all orders for this visit: Pre-op examination She can do 4 METS of activity without any symptoms of heart disease. She has no known heart disease. She had a normal EKG in November. From a cardiac standpoint she is medically cleared. Low risk. Abnormal renal function - POCT urinalysis dipstick only - Basic Metabolic Panel; Future Her urinalysis was okay. Check BMP. Eczema, unspecified type Use ejqz-ark-tnhehiv moisturizer like CeraVe. Will add triamcinolone 0.025% cream twice a day. Overweight She is overweight. She is incorporating exercise into her daily habits. Recommend to stop monster drinks and stick with water. It is healthier for her kidneys and weight. documented in this encounter [facility] 05-08-2024 History of Present illness Narrative Reason for Appointment: Patient ID: Magy Farias is a 53 y.o. female who presents for No chief complaint on file. Patient presents today for Pre Op appointment. Patient is scheduled to undergo Da Jose assisted Laparoscopic Hysterectomy, possible exploratory laparotomy, possible BSO, possible cystoscopy on 05/31/[address] Hitchcock at [facility]. MEDICATIONS Current Outpatient Medications Medication Instructions [...] nursing note reviewed. Exam conducted with a drink box mechanic present. Vitals: Estimated body mass index is [...] reviewed, and patient is to proceed to [facility] OR. Follow Up: Patient is to follow up at 1 & 6 weeks post operative to assess proper healing and recovery from procedure. Documented by Karmen Lei LPN on behalf of: lCiff Hitchcock DO documented in this encounter [facility] 04-12-2024 History of Present illness Narrative Reason [...] Past Medical History: Diagnosis Date Thyroid disease ([facility]) Social History Tobacco Use Smoking status: Former [...] nursing note reviewed. Exam conducted with a drink box mechanic present. Vitals: Estimated body mass index is [...] by Zainab Owens LPN on behalf of: Cliff Hitchcock DO documented in this encounter [facility] 02-26-2024 Hospital Discharge instructions Scooter Mahoney MD - 02/26/2024 10:19 AM EST Continue isolate at home, or wear a mask when interacting with others. Continue taking Tylenol and Motrin as needed for pain and fevers. Continue hydrating The following attachments cannot be sent through Care Everywhere.5 Steps to Hand-Washing: Video (Palestinian)Coronavirus Disease (COVID-19): Caring for Yourself: Quick List (Palestinian)documented in this encounter [facility] 01-04-2024 History of Present illness Narrative Images [...] is normal. Strength additional comments: 5/5 EQUAL DETON[employer]SEMBL[employer] STRENGTH Neurovascular Left Left neurovascular exam is [...] requiring urgent evaluation. documented in this encounter [facility] 01-04-2024 Miscellaneous Notes ----- Message from Dr. [...] Pt verbalizes understanding. documented in this encounter [facility] 01-04-2024 Telephone encounter Note ----- Message from [...] Her TSH and CMP were all normal. [facility] 01-04-2024 Telephone encounter Note Relayed the note to pt. Pt verbalizes understanding. [facility] 01-03-2024 History of Present illness Narrative Subjective [...] ear normal. Nose: Nose normal. Mouth/Throat: Lips: [place]. Mouth: Mucous membranes are moist. Pharynx: Oropharynx [...] disorder with single episode, in partial remission ([facility]) She is still having some symptoms. Discussed medication alternatives. Will try Vraylar 1.5mg daily. She will call next week with an update. Can increase dose if needed. Other orders - cariprazine (VRAYLAR) 1.5 mg capsule; Take 1 capsule (1.5 mg total) by mouth in the morning. documented in this encounter [employer] 12-15-2023 History of Present illness Narrative Reason [...] having a D&C Hysteroscopy performed at [facility] with Dr. Hitchcock. Pathology results was reviewed with the patient in great detail and all restrictions have been lifted. Follow Up: Patient is to return to the office for annual exam unless needed otherwise. Documented by MAGDALENA Crane on behalf of: MAGDALENA Crane documented in this encounter [facility] 10-17-2023 Miscellaneous Notes Called pt for FMLA 25$ charge Done documented in this encounter [facility] 10-17-2023 Telephone encounter Note Called pt for FMLA 25$ charge [facility] 10-17-2023 Telephone encounter Note Done [facility] 09-08-2023 Miscellaneous Notes In regards to her disability papers, yes she is going to have surgery, they just dont have it scheduled yet, the surgeon will take over filling it out and will take her off for whatever time necessary after. She needs you to take her off until she has her surgery. They have her working 12hr shifts each day so she is having to use her FMLA. If you want I can schedule her an appointment for you to talk to her Please feel in the dates that she wants to take off. Also it is likely work related in my opinion Patient notified, money for paper work has been collected and Disability has been sent documented in this encounter [facility] 09-08-2023 Telephone encounter Note In regards to her disability papers, yes she is going to have surgery, they just dont have it scheduled yet, the surgeon will take over filling it out and will take her off for whatever time necessary after. She needs you to take her off until she has her surgery. They have her working 12hr shifts each day so she is having to use her FMLA. If you want I can schedule her an appointment for you to talk to her [facility] 09-08-2023 Telephone encounter Note Please feel in the dates that she wants to take off. Also it is likely work related in my opinion [facility] 09-08-2023 Telephone encounter Note Patient notified, money for paper work has been collected and Disability has been sent [facility] 08-17-2023 Miscellaneous Notes ----- Message from Jag Berry DO Ginny sent at 08/17/2023 8:56 AM EDT ----- Her EMG showed mild carpal tunnel syndrome. Likely cause of her problem. I will refer her to the surgeon she agrees. She should continue wrist splints for now Left a message for the patient to call us back. Provider note relayed to patient. She is agreeable to a surgeon referral. documented in this encounter [facility] 08-17-2023 Telephone encounter Note ----- Message from Jag Berry DO Ginny sent at 08/17/2023 8:56 AM EDT ----- Her EMG showed mild carpal tunnel syndrome. Likely cause of her problem. I will refer her to the surgeon she agrees. She should continue wrist splints for now [facility] 08-17-2023 Telephone encounter Note Left a message for the patient to call us back. [facility] 08-17-2023 Telephone encounter Note Provider note relayed to patient. She is agreeable to a surgeon referral. [facility] 07-27-2023 Miscellaneous Notes Pt called returning our call and yes intermittent time. Just when she has it flare up. FMLA paper work is in the file.She is working 10 hrs a day now. Gillian I filled out her FMLA form FMLA has been sent documented in this encounter [facility] 07-27-2023 Telephone encounter Note Pt called returning our call and yes intermittent time. Just when she has it flare up. FMLA paper work is in the file.She is working 10 hrs a day now. [facility] 07-27-2023 Telephone encounter Note Gillian I filled out her FMLA form [facility] 07-27-2023 Telephone encounter Note FMLA has been sent [facility] 07-25-2023 History of Present illness Narrative Subjective [...] from wt loss documented in this encounter [facility] 05-19-2023 Miscellaneous Notes Patient called and stated [...] picked up note documented in this encounter [facility] 05-19-2023 Telephone encounter Note Patient called and stated that she still has numbness and tingling in her hands and wanted to know can you take her off till Tuesday? Her employer is working 12 hours so she could not due this with numb and tingling hands. [facility] 05-19-2023 Telephone encounter Note ok [facility] 05-19-2023 Telephone encounter Note Patient states it starts tomorrow [facility] 05-19-2023 Telephone encounter Note Okay. I printed out a note for her [facility] 05-19-2023 Telephone encounter Note Patient picked up note [facility] 05-16-2023 History of Present illness Narrative Subjective [...] her own appointment. documented in this encounter [facility] Evaluation note Diagnosis S/P carpal tunnel release- Primary Other postprocedural status Left hand pain Pain in soft tissues of limb documented in this encounter [facility]* Diagnosis COVID-19- Primary [facility] Postoperative visit- Primary documented in this encounter [facility]* Diagnosis Major depressive disorder with single episode, in full remission ([facility]) [facility] Diagnosis Post-menopausal bleeding Postmenopausal bleeding documented in this encounter [facility]* Diagnosis Pre-op examination Menorrhagia with regular cycle Pelvic pain Dyspareunia in female Dysmenorrhea documented in this encounter [facility]* Diagnosis Paresthesia and pain of both upper extremities- Primary Overweight [facility] Diagnosis Bilateral carpal tunnel syndrome- Primary Carpal tunnel syndrome [facility] Diagnosis Bilateral carpal tunnel syndrome- Primary Carpal tunnel syndrome Overweight (BMI 25.0-29.9) Overweight Encounter for screening mammogram for malignant neoplasm of breast [facility]* Diagnosis Major depressive disorder with single episode, in full remission ([facility]) Hypothyroidism, unspecified type [facility] Diagnosis Bilateral carpal tunnel syndrome Carpal tunnel syndrome [facility] Diagnosis Major depressive disorder with single episode, in full remission ([facility]) [facility] Diagnosis Well adult health check- Primary Unspecified general medical examination Acquired hypothyroidism Unspecified hypothyroidism Overweight Major depressive disorder with single episode, in partial remission ([facility]) [facility] Diagnosis Hypothyroidism, unspecified type [facility] Diagnosis Pre-op examination- Primary Abnormal renal function Nonspecific abnormal results of kidney function study Eczema, unspecified type Overweight [facility] filedocumented in this [facility] filedocumented in this encounter [facility] filedocumented in this encounter [facility] on filedocumented in this encounter [facility] on filedocumented in this encounter [facility] on filedocumented in this encounter [facility] filedocumented in this [facility] (narrative)* Consultation (Routine) - Pending Review Specialty Diagnoses / Procedures Referred By Ulysses burks Referred To Contact Orthopedic Surgery Diagnoses Bilateral carpal tunnel syndrome Jag Gross DO [address] [facility] [facility] [place] [address] Yvette Maynard Jr., [address] [facility] [address] [place] [address] Referral ID Status Reason Start Date Expiration Date Visits Requested Visits Authorized [id number] Pending Review Specialty Services Required 08/18/2023 08/17/2024 1 1 [employer] Reason for Referral No Reason for Referral Recorded Assessments Findings Encounter Date Exposure to a viral disease Telemedicine Establisted Patient with Jyoti Cruzradhadonta PHARMACOGENETICIST 02/12/2020 Exposure to biological agent suspected Telemedicine Establisted Patient with Jyoti Dempsey [facility] 02/12/2020 Instructions Instructions not supported for [...] CREATED AUTHOR AUTHOR'S ORGANIZ ATION 02/28/2024 [facility] DATE CREATED AUTHOR AUTHOR'S ORGANIZ ATION 05/09/2024 [facility] Care Teams (unrecognized sec tion and content) 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 Relationship Specialty Start Date End Date Jag Gross MD [address] [place] [address] PCP - General Family Medicine 08/10/23 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 Relationship Specialty Start Date End Date Jag Gross MD [address] [place] [address] PCP - General Family Medicine 08/10/23 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 Relationship Specialty Start Date End Date Jag Gross DO [address] [place] [address] PCP - General Family Medicine 02/26/24 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 Relationship Specialty Start Date End Date Jag Gross MD [address] [place] [address] PCP - General Family Medicine 08/10/23 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 Relationship Specialty Start Date End Date Jag Gross MD [address], [place] [address] PCP - General Family Medicine 08/10/23 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 Relationship Specialty Start Date End Date Jag Gross DO [address], [place] [address] PCP - General Family Medicine 12/29/22 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 Relationship Specialty Start Date End Date Jag Gross MD [address], [place] [address] PCP - General Family Medicine 08/10/23 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 Relationship Specialty Start Date End Date Jag Gross MD [address], [place] [address] PCP - General Family Medicine 08/10/23 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 Relationship Specialty Start Date End Date Jag Gross DO [address], [place] [address] PCP - General Family Medicine 12/29/22 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 Relationship Specialty Start Date End Date Jag Gross DO [address], [place] [address] PCP - General Family Medicine 12/29/22 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 Relationship Specialty Start Date End Date Jag Gross MD [address], [place] [address] PCP - General Family Medicine 08/10/23 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 Relationship Specialty Start Date End Date Jag Gross DO [address], [place] [address] PCP - General Family Medicine 12/29/22 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 Relationship Specialty Start Date End Date Jag Gross DO [address], [place] [address] PCP - General Family Medicine 12/29/22 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 Relationship Specialty Start Date End Date Jag Gross DO [address], [place] [address] PCP - General Family Medicine 12/29/22 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 Relationship Specialty Start Date End Date Jag Gross DO [address], [place] [address] PCP - General Family Medicine 12/29/22 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 Relationship Specialty Start Date End Date Jag Gross DO [address], [place] [address] PCP - General Family Medicine 12/29/22 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 Relationship Specialty Start Date End Date Jag Gross DO [address], [place] [address] PCP - General Family Medicine 12/29/22 Reason for Visit (unrecogniz ed section and content) Reason Comments Pain Reason Comments Illness Fever, chills, body aches, headache, and nausea. Symptoms starting Tuesday. Denies recent sick contacts. Tylenol taken 0700. Reason Comments Post-op Visit Reason Comments Med Refill Reason Comments Menstrual Problem Bleeding after ablat ion Reason Comments carpal tunnel numbness rates it a 10 Reason Comments Numbness In the hand painful Reason Comments Annual Exam Reason Comments pre op clearance Blood work and ua Ordered Prescriptions (unrec ognized section and content) [...] BE BASED ON THE PRIMARY CLINICAL RECORDS. [employer] provides no warranty or guarantee of the accuracy or completeness of information in this document.
[2024-05-31 11:27] LABS: HCG Quantitative 2 mIU/mL
[2024-05-31] MEDS: LACTATED RINGER'S SOLUTION 1,000 ML 50 ML IV ×3 (11:32→16:01)
[2024-05-31] MEDS: CEFAZOLIN SODIUM 1,000 MG in 0.9 % SODIUM CHLORIDE 50 ML 100 MG IV (12:41)
--- NOTE | 2024-05-31 15:04 | P.ON_ITS ---
Brief Operative Note Date of procedure: 05/31/24 Pre-op diagnosis general: adnexal mass, pelvic pain, aub, chronic blood loss a nemia Post-op diagnosis: other (bilateral hydrosalpingx) Procedure: NAME OF PROCEDURE: ? Robotic assisted laparoscopic hysterectomy with cystoscopy, bilateral salpingectomy PROCEDURE:? The patient was taken back to the operating room, where she was prepped and draped in the normal sterile fashion after being placed in the dorsal lithotomy position.? Patient?s anesthesia was found to be adequate.? Surgical timeout was performed using two patient identifiers.? SCDs were on and in place.? Two grams of Ancef were given prior to the surgery.? Sterile Walton catheter was inserted.? Standard size VCare was secured to the uterine cervix and the surgeon changed gloves.? Attention then was turned to the patient's abdomen, where a supraumbilical incision was then made.? Two S retractors were used to identify the patient?s fascia.? The fascia was then tented up using Nancy clamps and the patient?s fascia was incised sharply.? Patient?s abdomen was identified and entered bluntly.? The patient had the trocar placed and a pneumoperitoneum was obtained.? Approximately 4 liters of CO2 gas was used.? The camera was then placed through the trocar.? At this time, two robot trocars were placed in the patient?s left and right side, two hand widths from the midline, and this was placed under direct visualization.? The patient?s tube on the right side was tented up and the vessel sealer was then used to come across the mesosalpinx, and this was carried down to the uterine ovarian ligament.? The vessel sealer was carried down serially to the broad ligament, to the area of the bladder flap, which was then created anteriorly, and the uterine arteries were s keletonized and sealed using the vessel sealer.? The colpotomy was made using the monopolar cautery on cut, and this was carried circumferentially, posteriorly to anteriorly, until the uterus was amputated.? The specimen was then removed intact through the vagina, without difficulty.? The vagina was then closed using two running V-Loc in a non-lock fashion.? The robot was undocked.? The abdomen was desufflated.? The skin defects were closed using 4-0 Vicryl.? Please note, the fascia was closed using 0 Vicryl.? Sponge, lap and needle counts were correct x2.? Patient was taken to recovery room in stable condition.? The patient was awakened by Anesthesia first.? Patient tolerated procedure well.??Please note left ovarian cystectomy was performed using the vessel sealer Anesthesia: ABBY Surgeon: Cliff Hitchcock [employer]om[employer] Production Manager: Karena Medina Estimated blood loss (mL): 100 Pathology: other (uterus, cervix and tubes) Condition: stable Disposition: PACU Urinary Catheter Management Urinary Catheter Management Urethral: Cath placed during this visit: no
[2024-05-31] MEDS: KETOROLAC TROMETHAMINE 30 MG/ML VIAL IVP (18:39)
[2024-05-31] MEDS: IBUPROFEN 400 MG TABLET 800 MG PO (21:10)
[2024-05-31] MEDS: CEFAZOLIN SODIUM/DEXTROSE,ISO 2 GM/50 ML PIGGYBACK IV (21:10)
[2024-06-01] MEDS: CEFAZOLIN SODIUM/DEXTROSE,ISO 2 GM/50 ML PIGGYBACK IV (02:49)
[2024-06-01 03:28] VITALS: BP 119/75; PULSE 83; TEMP 36.7; O2SAT 92
[2024-06-01] MEDS: IBUPROFEN 400 MG TABLET 800 MG PO (04:16)
[2024-06-01 05:42] LABS: Basophils Percent Auto 0.3 % (0.2-2.0); Hemoglobin 8.5 g/dL (12.0-16.0); Immature Granulocytes Abs Auto 0.03 10^3/uL (0.00-0.03); Immature Granulocytes Pct Auto 0.3 % (0.0-0.5); Lymphocytes Absolute Auto 1.4 10^3/uL (1.2-3.8); Mean Corpuscular HGB Conc 29.3 g/dL (29.9-35.2); Mean Corpuscular Hemoglobin 21.7 pg (26.7-34.0); Mean Platelet Volume 9.9 fL (9.5-13.5); Monocytes Percent Auto 9.4 % (1.7-12.0); Platelet Count 252 10^3/uL (150-450); Red Blood Count 3.92 10^6/uL (4.20-5.40); Red Cell Distribution Width 16.9 % (11.0-15.0); White Blood Count 10.4 10^3/uL (4.0-11.0)
== END 2024-06-01 08:04 | disposition home or self-care (01) ==
LOC: SURGOUT 15:14 → MS 17:08
PROVIDERS: PCP Family Medicine; Visit Provider Obstetrics & Gynecology
PROC: (CPT 840; principal; 2024-05-31 12:30)
DX: N92.0 Excessive and frequent menstruation with regular cycle (principal); R10.2 Pelvic and perineal pain; N94.6 Dysmenorrhea, unspecified; N94.10 Unspecified dyspareunia; N88.8 Other specified noninflammatory disorders of cervix uteri; N80.03 Adenomyosis of the uterus; D25.9 Leiomyoma of uterus, unspecified; N83.8 Other noninflammatory disorders of ovary, fallopian tube and broad ligament; Z98.51 Tubal ligation status; F17.290 Nicotine dependence, other tobacco product, uncomplicated; E03.9 Hypothyroidism, unspecified; D50.0 Iron deficiency anemia secondary to blood loss (chronic)
CPT/HCPCS: 58571; 36415; 84702; 85025; 88307; 94667; 96365; J0131; J0690; J1100; J1171; J1885; J2250; J2371; J2405; J2704; J3010